=== PATIENT | female | born 1940 | race Caucasian/White ===

== ENCOUNTER 2019-08-31 09:43 | Outpatient (CLI) | payer MEDICARE, SELFPAY ==
[2019-08-31 10:21] LABS: Hemoglobin A1C 8.4 % (<5.7)
[2019-08-31 11:17] LABS: Free T4 Free Thyroxine 1.09 ng/mL (0.78-2.19)
== END 2019-08-31 09:44 | disposition home or self-care (01) ==
PROVIDERS: PCP Family Medicine; Visit Provider Internal Medicine
DX: E11.65 Type 2 diabetes mellitus with hyperglycemia (principal); E03.8 Other specified hypothyroidism
CPT/HCPCS: 36415; 83036; 84439; 84443

== ENCOUNTER 2019-09-17 11:14 | Outpatient (CLI) | payer MEDICARE, SELFPAY ==
--- NOTE | ~2019-09-17 | CT_ITS ---
EXAMINATION: CT abdomen pelvis wo con EXAM DATE: 09/17/2019 11:34 INDICATION: Gross hematuria, right lower back pain, right pelvic pain. History breast cancer. TECHNIQUE: Spiral CT of the abdomen and pelvis was performed without contrast. Axial, coronal and sag ittal images were reviewed. The dose-length product (DLP) for this examination was 1077.54 mGy-cm. The exposure was tailored according to patient size (auto mA exposure control), and iterative reconst ruction (ASIR) was used as additional dose reduction technique. Comparison is made to prior examinati on from 01/14/2015. FINDINGS: There is no nephrolithiasis or hydronephrosis. The uterus is not identified and has likel y been surgically resected. The bladder is unremarkable. There is hepatic steatosis without suspici ous focal lesion identified. Spleen, adrenal glands, pancreas are unremarkable. There are cholecyste ctomy clips. Some pneumobilia. There is no retroperitoneal or pelvic lymphadenopathy. There is mil d to moderate scattered arteriosclerotic disease. The appendix is normal. There is small sliding gastroesophageal hiatal hernia. There is moderate to severe descending and sigmoid predominant colonic diverticulosis. There is no adjacent inflammatory change to suggest diverticulitis. No free intraperitoneal gas. The heart is normal in size. There are no pericardial or pleural effusions. The lung bases are unremarkable. There are no osteoblasti c or osteolytic lesions identified. 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 IMPRESSION: 1. No nephrolithiasis, hydronephrosis or acute intra-abdominal findings. 2. Colonic diverticulosis. Reviewed, dictated and finalized at location B.
== END 2019-09-17 11:15 | disposition home or self-care (01) ==
PROVIDERS: PCP Family Medicine; Visit Provider Physician Assistant
DX: K57.30 Diverticulosis of large intestine without perforation or abscess without bleeding (principal)
CPT/HCPCS: 74176

== ENCOUNTER 2019-11-12 14:57 | Outpatient (CLI) | payer MEDICARE, SELFPAY ==
--- NOTE | ~2019-11-12 | US_ITS ---
EXAMINATION: US soft tissue abdomen DATE: 11/12/2019 15:26 INDICATION: Palpable area at the infracostal anterior left abdomen TECHNIQUE: Multiple grayscale and Doppler ultrasound images of the region of concern at the anterior left upper quadrant were obtained. COMPARISON: CT dated 09/17/2019 FINDINGS: As on the prior CT there is focal thickening of the subcutaneous fat in the anterior left upper quadr ant along the inferior costal margin which is clearly palpable with the ultrasound probe. No discerni ble capsule to suggest a lipoma. No abnormal underlying masses, fluid collections or ventral hernia i dentified. IMPRESSION: 1. The palpable abnormality of concern corresponds to a localized region of thickened subcutaneous fa t without a discernible discrete encapsulated lipoma. Reviewed, dictated and finalized at location A. IMPRESSION: 1. The palpable abnormality of concern corresponds to a localized region of thi ckened subcutaneous fat without a discernible discrete encapsulated lipoma.
== END 2019-11-12 14:58 | disposition home or self-care (01) ==
PROVIDERS: PCP Family Medicine; Visit Provider Family Medicine
DX: R22.2 Localized swelling, mass and lump, trunk (principal); R10.9 Unspecified abdominal pain
CPT/HCPCS: 76705

== ENCOUNTER 2019-12-07 09:37 | Outpatient (CLI) | payer MEDICARE, SELFPAY ==
[2019-12-07 10:50] LABS: Hemoglobin A1C 8.2 % (<5.7)
[2019-12-07 11:12] LABS: Free T4 Free Thyroxine 1.16 ng/mL (0.78-2.19)
== END 2019-12-07 09:38 | disposition home or self-care (01) ==
PROVIDERS: PCP Family Medicine; Visit Provider Internal Medicine
DX: K76.89 Other specified diseases of liver (principal); Z79.899 Other long term (current) drug therapy; Z78.0 Asymptomatic menopausal state; E03.8 Other specified hypothyroidism; E11.65 Type 2 diabetes mellitus with hyperglycemia; E11.40 Type 2 diabetes mellitus with diabetic neuropathy, unspecified; E11.51 Type 2 diabetes mellitus with diabetic peripheral angiopathy without gangrene; E78.5 Hyperlipidemia, unspecified; C50.912 Malignant neoplasm of unspecified site of left female breast; I10 Essential (primary) hypertension
CPT/HCPCS: 36415; 83036; 84439; 84443

== ENCOUNTER 2020-03-15 09:30 | Outpatient (CLI) | payer MEDICARE, SELFPAY ==
[2020-03-15 10:35] LABS: Alanine Aminotransferase 31 U/L (4-35); Albumin Level 4.3 g/dL (3.5-5.1); Alkaline Phosphatase 73 U/L (38-126); Anion Gap 8 mmol/L (8-16); Aspartate Amino Transferase 31 U/L (14-36); Bilirubin,Total 0.3 mg/dL (0.2-1.3); Blood Urea Nitrogen 24 mg/dL (7-17); Calcium 9.3 mg/dL (8.4-10.2); Carbon Dioxide 30 mmol/L (22-30); Chloride 100 mmol/L (98-107); Cholesterol 157 mg/dL (0-200); Estimated Glomerular Filt Rate > 60; Glucose 175 mg/dL (65-105); HDL Direct 28 mg/dL; Potassium 4.6 mmol/L (3.4-5.0); Sodium 138 mmol/L (137-145); Triglycerides 228 mg/dL (<150)
[2020-03-15 10:47] LABS: LDL Cholesterol Direct 91 mg/dL
[2020-03-15 10:54] LABS: Hemoglobin A1C 7.4 % (<5.7)
[2020-03-15 11:05] LABS: Thyroid Stimulating Hormone 0.864 uIU/mL (0.465-4.680)
[2020-03-15 11:51] LABS: Free T4 Free Thyroxine 1.19 ng/mL (0.78-2.19)
[2020-03-19 18:57] LABS: Fructosamine 291 umol/L (205-285)
== END 2020-03-15 09:31 | disposition home or self-care (01) ==
PROVIDERS: Visit Provider Internal Medicine
DX: E11.65 Type 2 diabetes mellitus with hyperglycemia (principal); E03.8 Other specified hypothyroidism; E78.5 Hyperlipidemia, unspecified; I10 Essential (primary) hypertension
CPT/HCPCS: 36415; 80053; 80061; 82985; 83036; 84439; 84443

== ENCOUNTER 2020-06-20 09:38 | Outpatient (CLI) | payer MEDICARE, SELFPAY ==
[2020-06-20 10:34] LABS: Hemoglobin A1C 8.2 % (<5.7)
[2020-06-20 10:57] LABS: Creatinine Urine 89.6 mg/dL
[2020-06-20 11:16] LABS: Free T4 Free Thyroxine 1.24 ng/mL (0.78-2.19)
[2020-06-20 14:37] LABS: MALB Creatinine Ratio < 6.7 mg/g (0-30); Microalbumin Urine Random < 6.0 mg/L (0-16.7)
[2020-06-20 15:49] LABS: Cholesterol 136 mg/dL (0-200); HDL Direct 24 mg/dL; Triglycerides 265 mg/dL (<150)
[2020-06-20 16:01] LABS: LDL Cholesterol Direct 77 mg/dL
[2020-06-26 22:51] LABS: Fructosamine 290 umol/L (205-285)
== END 2020-06-20 09:39 | disposition home or self-care (01) ==
LOC: ANHLAB 09:44
PROVIDERS: Visit Provider Internal Medicine
DX: E11.65 Type 2 diabetes mellitus with hyperglycemia (principal); E03.8 Other specified hypothyroidism; E78.5 Hyperlipidemia, unspecified
CPT/HCPCS: 36415; 80061; 82043; 82985; 83036; 84439; 84443

== ENCOUNTER 2020-09-19 07:43 | Outpatient (CLI) | payer MEDICARE, SELFPAY ==
[2020-09-19 08:16] LABS: Cholesterol 135 mg/dL (0-200); HDL Direct 32 mg/dL; Triglycerides 195 mg/dL (<150)
[2020-09-19 08:27] LABS: LDL Cholesterol Direct 71 mg/dL
[2020-09-19 09:09] LABS: Free T4 Free Thyroxine 1.43 ng/mL (0.78-2.19)
[2020-09-19 09:11] LABS: Hemoglobin A1C 8.4 % (<5.7)
[2020-09-22 12:59] LABS: Fructosamine 320 umol/L (205-285)
== END 2020-09-19 07:44 | disposition home or self-care (01) ==
PROVIDERS: PCP Family Medicine; Visit Provider Internal Medicine
DX: E03.8 Other specified hypothyroidism (principal); E11.65 Type 2 diabetes mellitus with hyperglycemia; I10 Essential (primary) hypertension
CPT/HCPCS: 36415; 80061; 82985; 83036; 84439; 84443

== ENCOUNTER 2020-12-28 09:28 | Outpatient (CLI) | payer MEDICARE, SELFPAY ==
[2020-12-28 10:25] LABS: Hemoglobin A1C 8.7 % (<5.7)
[2020-12-28 10:52] LABS: Thyroid Stimulating Hormone 0.976 uIU/mL (0.465-4.680)
[2020-12-28 11:13] LABS: Free T4 Free Thyroxine 1.55 ng/mL (0.78-2.19)
[2021-01-02 04:00] LABS: Fructosamine 313 umol/L (205-285)
== END 2020-12-28 09:29 | disposition home or self-care (01) ==
LOC: ANHLAB 09:32
PROVIDERS: PCP Family Medicine; Visit Provider Internal Medicine
DX: E11.65 Type 2 diabetes mellitus with hyperglycemia (principal); E03.8 Other specified hypothyroidism
CPT/HCPCS: 36415; 82985; 83036; 84439; 84443

== ENCOUNTER 2021-01-19 13:08 | Outpatient (CLI) | payer MEDICARE, SELFPAY ==
--- NOTE | ~2021-01-19 | XR_ITS ---
XR toe 1st LT min 2V DATE: 01/19/2021 13:37 INDICATION: Pain and swelling of left great toe. No injury. TECHNIQUE: 4 views COMPARISON: 05/13/2017 left great toe] FINDINGS: There is mild osteoarthritis at the first metatarsal phalangeal and interphalangeal joints. Osteoarthritic changes are noted at the talonavicular and tarsal joints. Osteopenia. No fracture, dislocation, periosteal reaction or bone destruction. IMPRESSION: Polyarticular osteoarthritis Osteopenia Reviewed, dictated and finalized at location B.
--- NOTE | ~2021-01-19 | XR_ITS ---
XR foot LT min 3V DATE: 01/19/2021 13:37 INDICATION: Left foot pain and swelling. No injury. TECHNIQUE: 4 views COMPARISON: None FINDINGS: Prominent osteoarthritic changes noted at the talonavicular, calcaneocuboid joints. There i s mild osteoarthritic arthritis at the first metatarsophalangeal and multiple interphalangeal joints. Osteopenia. No fracture or dislocation, periosteal reaction or bone destruction is detected. IMPRESSION: Polyarticular osteoarthritis Reviewed, dictated and finalized at location B.
== END 2021-01-19 13:09 | disposition home or self-care (01) ==
LOC: ANHIMG 13:16
PROVIDERS: PCP Family Medicine; Visit Provider Physician Assistant Medical
DX: M79.672 Pain in left foot (principal); M79.675 Pain in left toe(s); S90.129A Contusion of unspecified lesser toe(s) without damage to nail, initial encounter; M19.072 Primary osteoarthritis, left ankle and foot; M85.872 Other specified disorders of bone density and structure, left ankle and foot
CPT/HCPCS: 73630; 73660

== ENCOUNTER 2021-04-04 08:40 | Outpatient (CLI) | payer MEDICARE, SELFPAY ==
[2021-04-04 09:39] LABS: Hemoglobin A1C 8.1 % (<5.7)
[2021-04-04 10:02] LABS: Thyroid Stimulating Hormone 0.922 uIU/mL (0.465-4.680)
[2021-04-04 10:06] LABS: Free T4 Free Thyroxine 1.73 ng/mL (0.78-2.19)
[2021-04-08 11:51] LABS: Fructosamine 308 umol/L (205-285)
== END 2021-04-04 08:41 | disposition home or self-care (01) ==
PROVIDERS: PCP Family Medicine; Visit Provider Internal Medicine
DX: E03.8 Other specified hypothyroidism (principal); E11.65 Type 2 diabetes mellitus with hyperglycemia; E11.40 Type 2 diabetes mellitus with diabetic neuropathy, unspecified; E11.51 Type 2 diabetes mellitus with diabetic peripheral angiopathy without gangrene; E78.5 Hyperlipidemia, unspecified; C50.912 Malignant neoplasm of unspecified site of left female breast; I10 Essential (primary) hypertension; K76.89 Other specified diseases of liver; Z79.899 Other long term (current) drug therapy; Z87.442 Personal history of urinary calculi
CPT/HCPCS: 36415; 82985; 83036; 84439; 84443

== ENCOUNTER 2021-07-12 08:32 | Outpatient (CLI) | payer MEDICARE, SELFPAY ==
[2021-07-12 09:24] LABS: Basophils Percent Auto 0.4 % (0.2-1.2); Eosinophils Absolute Auto 0.1 K/mm3 (0-0.3); Hemoglobin 15.2 g/dL (12.0-15.0); Immature Granulocyte Absolute 0.04 K/mm3 (0.00-0.031); Immature Granulocyte Percent A 0.5 % (0-0.5); Lymphocytes Absolute Auto 1.74 K/mm3 (0.9-3.2); Lymphocytes Percent Auto 20.9 % (18.3-44.2); Mean Corpuscular HGB Conc 31.7 g/dl (32-36); Mean Corpuscular Hemoglobin 28.8 pg (26-34); Mean Corpuscular Volume 90.9 fl (80-100); Mean Platelet Volume 10.6 fl (7.4-10.4); Monocytes Absolute Auto 0.7 K/mm3 (0.1-0.6); Monocytes Percent Auto 7.8 % (2.6-8.5); Neutrophils Absolute Auto 5.8 K/mm3 (1.3-6.7); Neutrophils Percent Auto 69.4 % (45.5-73.1); Platelet Count Result 295 k/mm3 (150-375); Red Blood Count 5.28 M/mm3 (4.2-5.4); Red Cell Distribution Width 13.7 % (11.5-14.5); White Blood Count 8.3 K/mm3 (4.5-10.0)
[2021-07-12 09:37] LABS: Alanine Aminotransferase 23 U/L (4-35); Albumin Level 4.5 g/dL (3.5-5.1); Alkaline Phosphatase 89 U/L (38-126); Anion Gap 11 mmol/L (8-16); Aspartate Amino Transferase 27 U/L (14-36); Bilirubin,Total 0.6 mg/dL (0.2-1.3); Blood Urea Nitrogen 26 mg/dL (7-17); Calcium 9.2 mg/dL (8.4-10.2); Carbon Dioxide 30 mmol/L (22-30); Chloride 96 mmol/L (98-107); Estimated Glomerular Filt Rate > 60; Glucose 181 mg/dL (65-110); Potassium 3.9 mmol/L (3.4-5.0); Sodium 137 mmol/L (137-145)
[2021-07-12 10:45] LABS: Free T4 Free Thyroxine 1.31 ng/mL (0.78-2.19)
[2021-07-12 11:06] LABS: Creatinine Urine 67.8 mg/dL
[2021-07-12 11:19] LABS: MALB Creatinine Ratio < 8.8 mg/g (0-30); Microalbumin Urine Random < 6.0 mg/L (0-16.7)
[2021-07-12 11:47] LABS: Hemoglobin A1C 8.4 % (<5.7)
[2021-07-16 17:28] LABS: Fructosamine 313 umol/L (205-285)
== END 2021-07-12 08:33 | disposition home or self-care (01) ==
PROVIDERS: PCP Family Medicine; Referring Provider Internal Medicine; Visit Provider Family Medicine
DX: E03.9 Hypothyroidism, unspecified (principal); R60.9 Edema, unspecified; E11.65 Type 2 diabetes mellitus with hyperglycemia; I10 Essential (primary) hypertension
CPT/HCPCS: 36415; 80053; 82043; 82985; 83036; 84439; 84443; 85025

== ENCOUNTER 2021-11-13 08:12 | Outpatient (CLI) | payer MEDICARE, SELFPAY ==
[2021-11-13 09:10] LABS: Hemoglobin A1C 7.6 % (<5.7)
[2021-11-13 09:44] LABS: Free T4 Free Thyroxine 1.48 ng/mL (0.78-2.19)
[2021-11-15 14:34] LABS: Fructosamine 320 umol/L (205-285)
== END 2021-11-13 08:13 | disposition home or self-care (01) ==
LOC: ANHLAB 08:17
PROVIDERS: PCP Family Medicine; Visit Provider Internal Medicine
DX: E03.8 Other specified hypothyroidism (principal); E11.65 Type 2 diabetes mellitus with hyperglycemia
CPT/HCPCS: 36415; 82985; 83036; 84439; 84443

== ENCOUNTER 2022-02-19 09:39 | Outpatient (CLI) | payer MEDICARE, SELFPAY ==
[2022-02-19 10:37] LABS: Hemoglobin A1C 8.1 % (<5.7)
[2022-02-24 03:30] LABS: Fructosamine 321 umol/L (205-285)
== END 2022-02-19 09:40 | disposition home or self-care (01) ==
PROVIDERS: PCP Physician Assistant; Visit Provider Internal Medicine
DX: E11.65 Type 2 diabetes mellitus with hyperglycemia (principal); E03.8 Other specified hypothyroidism
CPT/HCPCS: 36415; 82985; 83036; 84436; 84443

== ENCOUNTER 2022-04-05 16:49 | Outpatient (CLI) | payer MEDICARE, SELFPAY ==
--- NOTE | ~2022-04-05 | XR_ITS ---
EXAMINATION: XR hip RT min 2V DATE: 04/05/2022 17:21 INDICATION: Right hip pain. TECHNIQUE: 2 views of right hip were obtained. COMPARISON: Right hip radiographs 07/04/2014 FINDINGS: Bone alignment is normal. No fracture. There is mild lumbar spondylosis. There is mild righ t hip osteoarthritis. Osteitis pubis is noted. IMPRESSION: 1. Mild right hip osteoarthritis. Reviewed, dictated and finalized at location A.
[2022-04-05 18:01] LABS: Alanine Aminotransferase 22 U/L (6-35); Albumin Level 4.3 g/dL (3.5-5.1); Alkaline Phosphatase 98 U/L (38-126); Anion Gap 9 mmol/L (8-16); Aspartate Amino Transferase 23 U/L (14-36); Bilirubin,Total 0.4 mg/dL (0.2-1.3); Blood Urea Nitrogen 28 mg/dL (7-17); Calcium 8.9 mg/dL (8.4-10.2); Carbon Dioxide 33 mmol/L (22-30); Chloride 97 mmol/L (98-107); Cholesterol 162 mg/dL (0-200); Estimated Glomerular Filt Rate > 60; Glucose 188 mg/dL (65-110); HDL Direct 34 mg/dL; Potassium 4.3 mmol/L (3.4-5.0); Sodium 139 mmol/L (137-145); Triglycerides 324 mg/dL (<150)
[2022-04-05 18:12] LABS: LDL Cholesterol Direct 88 mg/dL
== END 2022-04-05 16:50 | disposition home or self-care (01) ==
PROVIDERS: PCP Family Medicine; Visit Provider Family Medicine
DX: E11.65 Type 2 diabetes mellitus with hyperglycemia (principal); E66.9 Obesity, unspecified; I10 Essential (primary) hypertension; E78.5 Hyperlipidemia, unspecified; M25.551 Pain in right hip; M16.11 Unilateral primary osteoarthritis, right hip
CPT/HCPCS: 36415; 73502; 80053; 80061

== ENCOUNTER 2022-04-23 11:45 | Emergency (ER) | payer MEDICARE, SELFPAY ==
--- NOTE | ~2022-04-23 | CT_ITS ---
EXAMINATION: CT brain wo con DATE: 04/23/2022 12:20 INDICATION: Head injury. TECHNIQUE: Computed tomography (CT) of the head was performed without intravenous contrast. The mA wa s adjusted according to patient size. Iterative reconstruction technique was employed. The dose-lengt h product was 605.33 mGy-cm. COMPARISON: Head CT 12/10/13 FINDINGS: There is a small old infarct in left cerebellum. There is no intracranial hemorrhage, acute infarction, or abnormal intracranial mass lesion. The ventricles are normal in size. The paranasal s inuses are clear. The orbits are normal. The mastoid air cells are normal. IMPRESSION: 1. Small old infarct in left cerebellum. Reviewed, dictated and finalized at location B.
--- NOTE | ~2022-04-23 | CT_ITS ---
EXAMINATION: CT cervical spine wo con DATE: 04/23/2022 12:20 INDICATION: Fall with head injury TECHNIQUE: Computed tomography (CT) of the cervical spine was performed without intravenous contrast. Automated exposure control and iterative reconstruction technique were employed. The dose-length pro duct was 280.43 mGy-cm. COMPARISON: None FINDINGS: Straightening of the normal cervical lordosis. Vertebral body heights are normal. No fracture. Severe osteoarthritis at the atlantoaxial articulation. Severe disc height loss at C5-C6, moderate disc hei ght loss at C6-C7 and mild disc height loss at C2-C3, C3-C4 and C7-T1. Posterior disc osteophyte comp robert at C5-C6 with moderate right-sided and severe left-sided uncovertebral osteoarthritis resulting i n mild central canal and mild bilateral neural foraminal stenosis. There is additional moderate uncov ertebral osteoarthritis bilaterally at C6-C7 and on the right at C3-C4. Moderate to severe multilevel bilateral cervical facet osteoarthritis. Additional neural foraminal stenosis, mild bilaterally at C 6-C7 and on the right at C3-C4 and minimal at a few additional levels atherosclerotic calcification i s at the bilateral carotid bulbs. Cervical soft tissues are otherwise unremarkable. Moderate to sever e emphysema at the bilateral apices. IMPRESSION: 1. Severe cervical spondylosis. No acute osseous abnormality. 2. Moderate to severe emphysema the apices of the lungs. Reviewed, dictated and finalized at location A.
[2022-04-23 11:53] VITALS: BP 161/79; PULSE 72; RESP 20; TEMP 36.2; O2SAT 100
[2022-04-23 12:34] LABS: Basophils Percent Auto 0.2 % (0.2-1.2); Eosinophils Absolute Auto 0.1 K/mm3 (0-0.3); Eosinophils Percent Auto 1.2 % (0-4.4); Hematocrit 48.4 % (37.0-47.0); Hemoglobin 15.1 g/dL (12.0-15.0); Immature Granulocyte Absolute 0.05 K/mm3 (0.00-0.031); Immature Granulocyte Percent A 0.5 % (0-0.5); Lymphocytes Absolute Auto 1.94 K/mm3 (0.9-3.2); Lymphocytes Percent Auto 21.2 % (18.3-44.2); Mean Corpuscular HGB Conc 31.2 g/dl (32-36); Mean Corpuscular Hemoglobin 29.8 pg (26-34); Mean Corpuscular Volume 95.5 fl (80-100); Mean Platelet Volume 10.6 fl (7.4-10.4); Monocytes Absolute Auto 0.7 K/mm3 (0.1-0.6); Neutrophils Absolute Auto 6.3 K/mm3 (1.3-6.7); Neutrophils Percent Auto 68.9 % (45.5-73.1); Platelet Count Result 249 k/mm3 (150-375); Red Blood Count 5.07 M/mm3 (4.2-5.4); Red Cell Distribution Width 13.5 % (11.5-14.5); White Blood Count 9.2 K/mm3 (4.5-10.0)
--- NOTE | 2022-04-23 12:36 | ED.HEATRA ---
HPI - Head Injury General Chief complaint: Head Injury Stated complaint: Fall hit head 04/21, ARTEAGA on blood thinners Time Seen by Provider: 04/23/22 11:59 History of Present Illness HPI Narrative: This is an 81-year-old female with past medical history of hypertension, hypothyroidism, type 2 diabetes who presents emergency department complaining of headache after a fall 2 days ago. She states she was walking in her kitchen, when her foot got caught on a table, she fell forward striking the top of her head on a refrigerator. She denies loss of consciousness, weakness or numbness after the fall. She denies chest pain, shortness of breath, lightheadedness or palpitations before or after the fall. She describes the headache as dull, 5 out of 10, not radiating. Related Data Home Medications Medication Instructions Recorded Confirmed metformin 500 mg tablet,extended 1,000 mg PO BID 06/14/19 04/05/22 release 24 hr montelukast 10 mg tablet 10 mg PO DAILY 06/14/19 04/05/22 (Singulair) levothyroxine 150 mcg capsule ea PO 01/19/21 04/05/22 Allergies Allergy/AdvReac Type Severity Reaction Status Date / Time No Known Allergies Allergy Verified 04/05/22 15:08 Review of Systems Review of Systems: CONSTITUTIONAL: Denies fever, chills, or sweats. EYES: Denies visual changes, redness, or discharge. ENT: Denies rhinorrhea, congestion, sore throat, or otalgia. CARDIOVASCULAR: Denies chest pain, palpitations, or edema. RESPIRATORY: Denies cough or dyspnea. GASTROINTESTINAL: Denies abdominal pain, nausea, vomiting, or diarrhea. GENITOURINARY: Denies dysuria or hematuria. SKIN: Denies rash or itching. MUSCULOSKELETAL: Denies back pain, joint pain, or myalgia. NEUROLOGIC: Headache denies numbness, dizziness, or weakness. PSYCHIATRIC: Denies anxiety or depression. [facility]LY [facility] Surgical History Surgical History H/O arthroscopy H/O mastectomy H/O rotator cuff surgery H/O: hysterectomy Hx of cholecystectomy Family History Family History Sibling Depression Hypertension Cerebrovascular accident Family history of malignant neoplasm of urinary bladder Family history of elevated blood lipids Family history of malignant neoplasm Family history of malignant melanoma Father Family history of glaucoma Hypertension Diabetes mellitus Mother Family history of malignant melanoma Hypertension Family history of elevated blood lipids Other Family history of arthritis Social History Social History (Updated 04/05/22 @ 15:10 by Marj Hyman, [facility]) Smoking status: Unknown if ever smoked Alcohol intake: never Exam Narrative: GENERAL: Well-developed, well-nourished, and in no acute distress. HEAD: Normocephalic, small healing abrasion noted to the top of the head approximately 2 x 2 cm EYES: PERRLA and EOMI. ENT: Nares clear, no rhinorrhea or epistaxis. Mucous membranes moist. Oropharynx without tonsillar hypertrophy exudate or other lesions. NECK: Supple. No adenopathy or masses. No carotid bruits or JVD CHEST: Clear to auscultation. No respiratory distress. No wheezes rales or rhonchi HEART: Regular rate and rhythm. No murmur heard. Normal peripheral pulses. ABDOMEN: Soft, nontender, nondistended, normal active bowel sounds. EXTREMITIES: Normal range of motion. No edema. SKIN: Warm, dry, no rash. NEURO: No focal deficits. Alert and oriented x3. Strength out of 5 in all extremities, sensation intact bilaterally, cranial nerves II through XII intact PSYCH: Normal mood and affect. Course Course Emergency Course: 12:40 - CT head shows old infarct without evidence of skull fracture or intracranial bleeding. 12:46 - CT cervical spine negative for fracture. 13:29 -CBC demonstrates hemoglobin of 15.1, but is otherwise unremarkable. Chemistries show mild hypochloremia at 95 and hyperglycemia of 219 but
[2022-04-23 12:45] LABS: Partial Thromboplastin Time 24.4 SECONDS (22.3-36.8)
[2022-04-23 12:47] LABS: Alanine Aminotransferase 21 U/L (6-35); Albumin Level 4.5 g/dL (3.5-5.1); Alkaline Phosphatase 86 U/L (38-126); Anion Gap 13 mmol/L (8-16); Aspartate Amino Transferase 25 U/L (14-36); Bilirubin,Total 0.4 mg/dL (0.2-1.3); Blood Urea Nitrogen 27 mg/dL (7-17); Carbon Dioxide 31 mmol/L (22-30); Chloride 95 mmol/L (98-107); Estimated CRCL calculation 53 ml/min; Estimated Glomerular Filt Rate > 60; Glucose 219 mg/dL (65-110); Potassium 4.2 mmol/L (3.4-5.0); Sodium 139 mmol/L (137-145)
[2022-04-23 12:48] LABS: INR 0.9; Prothrombin Time 12.1 Seconds (11.1-14.7)
[2022-04-23 12:57] LABS: Troponin I < 0.012 ng/mL (0.000-0.034)
[2022-04-23 14:03] VITALS: BP 110/62
== END 2022-04-23 14:27 | disposition home or self-care (01) ==
PROVIDERS: Emergency Medicine; Emergency Provider Preventive Medicine Aerospace Medicine; PCP Family Medicine
DX: S06.0X0A Concussion without loss of consciousness, initial encounter (principal); S00.03XA Contusion of scalp, initial encounter; I10 Essential (primary) hypertension; E11.9 Type 2 diabetes mellitus without complications; E03.9 Hypothyroidism, unspecified; Z79.84 Long term (current) use of oral hypoglycemic drugs; Z90.710 Acquired absence of both cervix and uterus; Z90.10 Acquired absence of unspecified breast and nipple; W01.198A Fall on same level from slipping, tripping and stumbling with subsequent striking against other object, initial encounter
CPT/HCPCS: 36415; 70450; 72125; 80053; 84484; 85025; 85610; 85730; 99284

== ENCOUNTER 2022-05-28 10:24 | Outpatient (CLI) | payer MEDICARE, SELFPAY ==
[2022-05-28 11:15] LABS: Alanine Aminotransferase 24 U/L (6-35); Albumin Level 4.4 g/dL (3.5-5.1); Alkaline Phosphatase 89 U/L (38-126); Anion Gap 11 mmol/L (8-16); Aspartate Amino Transferase 27 U/L (14-36); Bilirubin,Total 0.5 mg/dL (0.2-1.3); Blood Urea Nitrogen 28 mg/dL (7-17); Calcium 8.8 mg/dL (8.4-10.2); Carbon Dioxide 30 mmol/L (22-30); Chloride 98 mmol/L (98-107); Cholesterol 170 mg/dL (0-200); Estimated Glomerular Filt Rate > 60; Glucose 153 mg/dL (65-110); HDL Direct 33 mg/dL; Potassium 4.5 mmol/L (3.4-5.0); Sodium 139 mmol/L (137-145); Triglycerides 221 mg/dL (<150)
[2022-05-28 11:25] LABS: LDL Cholesterol Direct 86 mg/dL
[2022-05-28 11:29] LABS: Hemoglobin A1C 8.7 % (<5.7)
[2022-05-28 11:43] LABS: Creatinine Urine 34.6 mg/dL
[2022-05-28 11:48] LABS: MALB Creatinine Ratio 38.7 mg/g (0-30); Microalbumin Urine Random 13.4 mg/L (0-16.7)
[2022-05-28 11:57] LABS: Vitamin D 25 Hydroxy 39.3 ng/mL
[2022-05-28 12:47] LABS: Free T4 Free Thyroxine 1.35 ng/mL (0.78-2.19)
[2022-06-01 12:10] LABS: Fructosamine 329 umol/L (205-285)
== END 2022-05-28 10:25 | disposition home or self-care (01) ==
PROVIDERS: PCP Family Medicine; Referring Provider Internal Medicine; Visit Provider Nurse Practitioner
DX: E11.65 Type 2 diabetes mellitus with hyperglycemia (principal); E78.5 Hyperlipidemia, unspecified; E03.8 Other specified hypothyroidism; I10 Essential (primary) hypertension; E55.9 Vitamin D deficiency, unspecified
CPT/HCPCS: 36415; 80053; 80061; 82043; 82306; 82985; 83036; 84439; 84443

== ENCOUNTER 2022-09-03 10:10 | Outpatient (CLI) | payer MEDICARE, SELFPAY ==
[2022-09-03 12:25] LABS: Free T4 Free Thyroxine 1.17 ng/mL (0.78-2.19)
[2022-09-06 12:56] LABS: Fructosamine 286 umol/L (205-285)
== END 2022-09-03 10:11 | disposition home or self-care (01) ==
PROVIDERS: PCP Family Medicine; Referring Provider Family Medicine; Visit Provider Internal Medicine
DX: E11.65 Type 2 diabetes mellitus with hyperglycemia (principal); E03.8 Other specified hypothyroidism
CPT/HCPCS: 36415; 82985; 83036; 84439; 84443

== ENCOUNTER 2022-12-10 10:34 | Outpatient (CLI) | payer MEDICARE, SELFPAY ==
[2022-12-10 11:31] LABS: Hemoglobin A1C 8.1 % (<5.7)
[2022-12-10 11:49] LABS: Free T4 Free Thyroxine 0.47 ng/mL (0.78-2.19)
[2022-12-14 12:57] LABS: Fructosamine 321 umol/L (205-285)
== END 2022-12-10 10:35 | disposition home or self-care (01) ==
PROVIDERS: PCP Family Medicine; Visit Provider Internal Medicine
DX: E11.65 Type 2 diabetes mellitus with hyperglycemia (principal); E03.8 Other specified hypothyroidism
CPT/HCPCS: 36415; 82985; 83036; 84439; 84443

== ENCOUNTER 2023-01-15 10:33 | Outpatient (CLI) | payer MEDICARE, SELFPAY | END 2023-01-15 10:34 | disposition home or self-care (01) | LOC: ANHGOSHLAB 10:35 | PROVIDERS: PCP Family Medicine; Visit Provider Internal Medicine | DX: E03.8 Other specified hypothyroidism (principal) | CPT/HCPCS: 36415; 84439; 84443 ==

== ENCOUNTER 2023-03-13 09:07 | Outpatient (CLI) | payer MEDICARE, SELFPAY ==
[2023-03-13 19:10] LABS: Alanine Aminotransferase 22 U/L (6-35); Albumin Level 4.2 g/dL (3.5-5.1); Alkaline Phosphatase 81 U/L (38-126); Anion Gap 7 mmol/L (8-16); Aspartate Amino Transferase 30 U/L (14-36); Bilirubin,Total 0.6 mg/dL (0.2-1.3); Blood Urea Nitrogen 24 mg/dL (7-17); Calcium 8.8 mg/dL (8.4-10.2); Carbon Dioxide 35 mmol/L (22-30); Chloride 96 mmol/L (98-107); Cholesterol 165 mg/dL (0-200); Estimated Glomerular Filt Rate > 60; Glucose 175 mg/dL (65-110); HDL Direct 27 mg/dL; Potassium 4.9 mmol/L (3.4-5.0); Sodium 138 mmol/L (137-145); Triglycerides 310 mg/dL (<150)
[2023-03-13 19:21] LABS: LDL Cholesterol Direct 89 mg/dL
[2023-03-13 20:05] LABS: Free T4 Free Thyroxine 1.67 ng/mL (0.78-2.19)
[2023-03-13 20:12] LABS: Hemoglobin A1C 7.8 % (<5.7)
== END 2023-03-13 09:08 | disposition home or self-care (01) ==
PROVIDERS: PCP Family Medicine; Visit Provider Family Medicine
DX: E03.9 Hypothyroidism, unspecified (principal); E11.65 Type 2 diabetes mellitus with hyperglycemia; E66.9 Obesity, unspecified; I10 Essential (primary) hypertension; E78.5 Hyperlipidemia, unspecified
CPT/HCPCS: 36415; 80053; 80061; 83036; 84439; 84443

== ENCOUNTER 2023-03-28 10:31 | Outpatient (CLI) | payer MEDICARE, SELFPAY ==
[2023-03-28 18:06] LABS: Free T4 Free Thyroxine 1.55 ng/mL (0.78-2.19)
[2023-03-28 18:12] LABS: Hemoglobin A1C 7.7 % (<5.7)
[2023-04-03 20:38] LABS: Fructosamine 339 umol/L (205-285)
== END 2023-03-28 10:32 | disposition home or self-care (01) ==
PROVIDERS: PCP Family Medicine
DX: E11.65 Type 2 diabetes mellitus with hyperglycemia (principal); E03.8 Other specified hypothyroidism
CPT/HCPCS: 36415; 82985; 83036; 84439; 84443

== ENCOUNTER → 2023-06-11 13:53 | Outpatient (CLI) | payer MEDICARE, SELFPAY ==
--- NOTE | ~2023-06-11 | MR_ITS ---
MRI of the left shoulder Technique: Axial proton-density fat-sat images, coronal proton density fat-sat and T2 fat-sat images, and sagittal T1-weighted and T2 fat-sat images were acquired. Clinical History: Pain Findings: There is probable postoperative change of the distal clavicle, possibly related to prior chandler bacromial decompression/distal clavicular resection. Coracoclavicular, coracoacromial, and coracohume ral ligaments are intact. Supraspinatus tendon is intact, without partial or full-thickness tear, tendon is mildly thickened di stally. There is focal moderate to high-grade interstitial tearing of the anterior infraspinatus tend on, with distal low-grade interstitial tear of the infraspinatus myotendinous junction region. Subsca pularis tendon demonstrates severe tendinosis, with possible mild to moderate partial thickness teari ng. Suspected focal longitudinal split tearing of the biceps tendon of the bicipital groove There is superior labral tear, extending to the anterosuperior and anterior portions. There is enthesopathic change in the greater tuberosity. There is mild degenerative change of the gle nohumeral joint. Inferior glenohumeral ligament is intact. No significant fluid distention of the sub acromial/subdeltoid bursa. No muscle atrophy or edema. Impression: Focal moderate to high-grade interstitial tear of the anterior infraspinatus tendon with additional l ow-grade interstitial tear at the infraspinatus myotendinous junction region. Severe subscapularis tendinosis with possible mild to moderate partial thickness tearing. Probable focal longitudinal split tearing of the biceps tendon in the bicipital groove. Superior labral tear, extending to the anterosuperior and anterior portions. Probable prior subacromial decompression/distal clavicular resection. Reviewed, dictated and finalized at [facility]. [employer] BUSINESS MANAGER Impression: Focal moderate to high-grade interstitial tear of the anterior infraspinatus te ndon with additional low-grade interstitial tear at the infraspinatus myotendin ous junction region. Severe subscapularis tendinosis with possible mild to moderate partial thicknes s tearing. Probable focal longitudinal split tearing of the biceps tendon in the bicipital groove. Superior labral tear, extending to the anterosuperior and anterior portions. Probable prior subacromial decompression/distal clavicular resection.
== END ==
PROVIDERS: PCP Orthopaedic Surgery; Visit Provider Orthopaedic Surgery
DX: M75.102 Unspecified rotator cuff tear or rupture of left shoulder, not specified as traumatic (principal); S43.432A Superior glenoid labrum lesion of left shoulder, initial encounter; M67.814 Other specified disorders of tendon, left shoulder
CPT/HCPCS: 73221

== ENCOUNTER 2023-07-03 09:34 | Outpatient (CLI) | payer MEDICARE, SELFPAY ==
[2023-07-03 19:07] LABS: Hemoglobin A1C 8.5 % (<5.7)
[2023-07-03 19:15] LABS: Hematocrit 47.2 % (37.0-47.0); Hemoglobin 14.3 g/dL (12.0-15.0); Mean Corpuscular HGB Conc 30.3 g/dl (32-36); Mean Corpuscular Hemoglobin 29.4 pg (26-34); Mean Corpuscular Volume 96.9 fl (80-100); Mean Platelet Volume 11.3 fl (7.4-10.4); Platelet Count Result 213 k/mm3 (150-375); Red Blood Count 4.87 M/mm3 (4.2-5.4); Red Cell Distribution Width 14.3 % (11.5-14.5); White Blood Count 6.7 K/mm3 (4.5-10.0)
[2023-07-03 19:21] LABS: Alanine Aminotransferase 22 U/L (6-35); Albumin Level 4.4 g/dL (3.5-5.1); Alkaline Phosphatase 89 U/L (38-126); Anion Gap 10 mmol/L (8-16); Aspartate Amino Transferase 36 U/L (14-36); Bilirubin,Total 0.7 mg/dL (0.2-1.3); Blood Urea Nitrogen 30 mg/dL (7-17); Calcium 9.2 mg/dL (8.4-10.2); Carbon Dioxide 32 mmol/L (22-30); Chloride 95 mmol/L (98-107); Cholesterol 189 mg/dL (0-200); Estimated Glomerular Filt Rate > 60; Glucose 177 mg/dL (65-110); HDL Direct 29 mg/dL; Potassium 4.4 mmol/L (3.4-5.0); Sodium 137 mmol/L (137-145); Triglycerides 361 mg/dL (<150)
[2023-07-03 20:04] LABS: Creatinine Urine 33.7 mg/dL
[2023-07-03 20:09] LABS: MALB Creatinine Ratio 22.6 mg/g (0-30); Microalbumin Urine Random 7.6 mg/L (0-16.7)
[2023-07-03 21:27] LABS: LDL Cholesterol Direct 92 mg/dL
[2023-07-05 18:22] LABS: Fructosamine 317 umol/L (205-285)
== END 2023-07-03 09:35 | disposition home or self-care (01) ==
PROVIDERS: PCP Orthopaedic Surgery; Visit Provider Family Medicine
DX: E03.8 Other specified hypothyroidism (principal); E78.5 Hyperlipidemia, unspecified; I10 Essential (primary) hypertension; E11.65 Type 2 diabetes mellitus with hyperglycemia
CPT/HCPCS: 36415; 80053; 80061; 82043; 82985; 83036; 84439; 84443; 85027

== ENCOUNTER 2023-10-22 07:32 | Outpatient (CLI) | payer MEDICARE, SELFPAY ==
--- NOTE | ~2023-10-22 | DEXA_ITS ---
Bone Density Report Name: MANFRED SYKES Age: 83 Sex: Female Ethnicity: White Date of : 1940 Indication: postmenopausal; screening for osteoporosis; height loss; history of glucocorticoids; cancer; asthma or emphysema; hysterectomy; Referring Provider: NABEEL CARVER Study: Bone densitometry was performed. Exam Date: October 22, 2023 Accession number: [id number] Bone Density: Region BMD T-score Z-score Classification AP Spine(L1-L4) 0.988 -0.5 2.3 Normal Femoral Neck (Left) 0.934 0.8 3.3 Normal Total Hip (Left) 1.152 1.7 4.1 Normal Femoral Neck (Right) 0.850 0.0 2.5 Normal Total Hip (Right) 1.137 1.6 3.9 Normal Total Hip Mean 1.145 1.7 4.0 Normal World Health Organization criteria for BMD impression classify patients as: Normal (T-score at or above -1.0), Osteopenia (T-score between -1.0 and -2.5), or Osteoporosis (T-score at or below -2.5). 10-year Fracture Risk: FRAX not reported because: All T-scores for Spine Total, Hip Total, Femoral Neck at or above -1.0 Clinical Information Provided by Patient: Has taken Glucocorticoids Has used the following medications: Vitamin D Has the following medical conditions: Asthma or Emphysema, Cancer, Hysterectomy Patient maximum height was 67 Menopause Age: 39 No regular weight bearing exercise Drinks caffeinated beverages Onset of menses at age 12 Number of children 3 Impression: The patient has normal bone mass. The patient has risk factors, including: history of glucocorticoid therapy. Discussion: LOW RISK OF FRACTURE; BONE DENSITY IS WELL ABOVE THE MINIMUM DESIRABLE LEVEL AND ABOVE AVERAGE FOR AGE AND SEX AT ALL SKELETAL SITES TESTED. This person's bone density is above expected limits for age and sex. This is rarely clinically significant, but should be pursued if there are significant musculoskeletal complaints. The patient should follow a healthful lifestyle (good nutrition with adequate calcium and vitamin D, and appropriate weight-bearing exercise). Follow-Up: Consider repeating this study in 5 years or sooner if there is some new clinical indication. Reported by: JAMES on 10/22/2023 8:11:00 AM. Reviewed, dictated and finalized at location ABrandon MCKINNON
== END 2023-10-22 07:33 | disposition home or self-care (01) ==
LOC: ANHIMG 07:34
PROVIDERS: PCP Family Medicine; Visit Provider Family Medicine
DX: M81.0 Age-related osteoporosis without current pathological fracture (principal); Z92.241 Personal history of systemic steroid therapy
CPT/HCPCS: 77080

== ENCOUNTER 2024-05-03 09:10 | Outpatient (CLI) | payer MEDICARE, SELFPAY ==
[2024-05-03 14:17] LABS: Hematocrit 44.9 % (37.0-47.0); Hemoglobin 13.8 g/dL (12.0-15.0); Mean Corpuscular HGB Conc 30.7 g/dl (32-36); Mean Corpuscular Hemoglobin 30.2 pg (26-34); Mean Corpuscular Volume 98.2 fl (80-100); Mean Platelet Volume 11.5 fl (7.4-10.4); Platelet Count Result 286 k/mm3 (150-375); Red Blood Count 4.57 M/mm3 (4.2-5.4); Red Cell Distribution Width 13.2 % (11.5-14.5); White Blood Count 8.5 K/mm3 (4.5-10.0)
[2024-05-03 14:45] LABS: Alanine Aminotransferase 21 U/L (6-35); Albumin Level 4.3 g/dL (3.5-5.1); Alkaline Phosphatase 86 U/L (38-126); Anion Gap 9 mmol/L (4-12); Aspartate Amino Transferase 80 U/L (14-36); Bilirubin,Total 0.6 mg/dL (0.2-1.3); Blood Urea Nitrogen 34 mg/dL (7-17); Calcium 9.4 mg/dL (8.4-10.2); Carbon Dioxide 29 mmol/L (22-30); Chloride 99 mmol/L (98-107); Cholesterol 86 mg/dL (0-200); Estimated Glomerular Filt Rate > 60; Glucose 179 mg/dL (65-110); HDL Direct 24 mg/dL; Potassium 5.3 mmol/L (3.4-5.0); Sodium 137 mmol/L (137-145); Triglycerides 136 mg/dL (<150)
[2024-05-03 15:02] LABS: Free T4 Free Thyroxine 1.15 ng/mL (0.78-2.19)
[2024-05-03 15:33] LABS: LDL Cholesterol Direct < 30 mg/dL
[2024-05-03 16:00] LABS: Hemoglobin A1C 7.9 % (<5.7)
== END 2024-05-03 09:11 | disposition home or self-care (01) ==
PROVIDERS: PCP Family Medicine; Visit Provider Family Medicine
DX: E03.9 Hypothyroidism, unspecified (principal); E11.65 Type 2 diabetes mellitus with hyperglycemia; E66.9 Obesity, unspecified; E78.5 Hyperlipidemia, unspecified; I10 Essential (primary) hypertension; Z01.818 Encounter for other preprocedural examination; Z79.899 Other long term (current) drug therapy
CPT/HCPCS: 36415; 80053; 80061; 83036; 84439; 84443; 85027

== ENCOUNTER 2024-08-23 14:55 | Outpatient (CLI) | payer MEDICARE, SELFPAY ==
--- NOTE | ~2024-08-23 | XR_ITS ---
EXAM: XR hip BI 2V w AP pelvis DATE: 08/23/2024 15:20 HISTORY: R10.2 - Pelvic and perineal pain . COMPARISON: X-ray right hip 04/05/2022. FINDINGS: Decreased mineralization. No fracture or dislocation. No lytic or blastic lesion. Lumbar d egenerative disc disease. Mild bilateral superior hip joint space narrowing. Degenerative change at t he pubic symphysis. Scattered enthesopathy. The rectum is dilated to 9.4 cm by formed stool. No erosi on or periosteal change. Soft tissues within normal limits. IMPRESSION: Possible fecal impaction. Osteopenia. Mild bilateral hip osteoarthritis. Osteitis pubis. Reviewed, dictated and finalized at location K. RAFT SHEET METAL MECHANIC IMPRESSION: Possible fecal impaction. Osteopenia. Mild bilateral hip osteoarthr itis. Osteitis pubis.
--- NOTE | ~2024-08-23 | XR_ITS ---
EXAM: XR lumbar spine 2-3V DATE: 08/23/2024 15:20 HISTORY: M54.9 - Dorsalgia, unspecified . COMPARISON: 12/16/2007; CT abdomen pelvis 09/17/2019. FINDINGS: Cholecystectomy clips. Fecal distention of the rectum. 5 nonrib-bearing lumbar-type vertebr al bodies. Pedicles intact. Bilateral pars defects at L5-S1. 4 mm anterolisthesis at L3-4 and L4-5. M ild anterior wedge deformity at L2, new since the prior CT. Multilevel mild-moderate disc space narro wing and marginal osteophytosis. Multilevel moderate mid and lower lumbar facet arthropathy. Atherosc lerotic aortic ossification without evident aneurysm. IMPRESSION: Mild anterior wedge compression fracture at L2, possibly acute given the history of recen t fall. Grade 1 anterolisthesis at L3-4 and L4-5. Bilateral pars defects at L5-S1. Multilevel degener ative disc disease and facet arthropathy. Possible fecal impaction. Reviewed, dictated and finalized at location K. AL TUBE WINDER IMPRESSION: Mild anterior wedge compression fracture at L2, possibly acute give n the history of recent fall. Grade 1 anterolisthesis at L3-4 and L4-5. Bilater al pars defects at L5-S1. Multilevel degenerative disc disease and facet arthro sivakumar. Possible fecal impaction.
--- NOTE | ~2024-08-23 | CT_ITS ---
EXAMINATION: CT brain wo con DATE: 08/23/2024 15:11 INDICATION: Unspecified injury of head, initial encounter . TECHNIQUE: Computed tomography (CT) of the head was performed without intravenous contrast. The mA wa s adjusted according to patient size. Iterative reconstruction technique was employed. The dose-lengt h product was 645.69 mGy-cm. COMPARISON: 04/23/2022. FINDINGS: No acute intracranial hemorrhage or extra-axial fluid collection. No hydrocephalus, mass, or herniation. No acute ischemic infarct. Unremarkable dural venous sinus attenuation. No acute osseous abnormality. The aerated spaces are clear. Mild atrophy and chronic white matter change. Atherosclerotic intracranial calcification. Bilateral l ens replacements. Small old left cerebellar infarct. IMPRESSION: No acute intracranial process. Reviewed, dictated and finalized at location K. DRY SORTER
== END 2024-08-23 14:56 | disposition home or self-care (01) ==
PROVIDERS: PCP Nurse Practitioner; Visit Provider Nurse Practitioner
DX: S32.020A Wedge compression fracture of second lumbar vertebra, initial encounter for closed fracture (principal); S09.90XA Unspecified injury of head, initial encounter; X58.XXXA Exposure to other specified factors, initial encounter; M43.16 Spondylolisthesis, lumbar region; M51.360 Other intervertebral disc degeneration, lumbar region with discogenic back pain only; M85.88 Other specified disorders of bone density and structure, other site; M16.0 Bilateral primary osteoarthritis of hip; M86.9 Osteomyelitis, unspecified
CPT/HCPCS: 70450; 72100; 73521

== ENCOUNTER 2024-09-06 09:50 | Outpatient (CLI) | payer MEDICARE, SELFPAY ==
[2024-09-06 14:58] LABS: Alanine Aminotransferase 17 U/L (6-35); Albumin Level 4.1 g/dL (3.5-5.1); Alkaline Phosphatase 98 U/L (38-126); Anion Gap 11 mmol/L (4-12); Aspartate Amino Transferase 80 U/L (14-36); Bilirubin,Total 0.6 mg/dL (0.2-1.3); Blood Urea Nitrogen 31 mg/dL (7-17); Calcium 9.9 mg/dL (8.4-10.2); Carbon Dioxide 27 mmol/L (22-30); Chloride 102 mmol/L (98-107); Cholesterol 81 mg/dL (0-200); Estimated Glomerular Filt Rate > 60; Glucose 166 mg/dL (65-110); HDL Direct 23 mg/dL; Potassium 5.3 mmol/L (3.4-5.0); Sodium 140 mmol/L (137-145); Triglycerides 145 mg/dL (<150)
[2024-09-06 15:20] LABS: LDL Cholesterol Direct < 30 mg/dL
[2024-09-06 15:27] LABS: Thyroid Stimulating Hormone 0.616 uIU/mL (0.465-4.680)
[2024-09-06 16:17] LABS: Creatinine Urine 63.7 mg/dL
[2024-09-06 16:20] LABS: MALB Creatinine Ratio 50.4 mg/g (0-30); Microalbumin Urine Random 32.1 mg/L (0-16.7)
[2024-09-06 19:37] LABS: Free T4 Free Thyroxine 1.85 ng/dL (0.78-2.19)
[2024-09-06 21:39] LABS: Hemoglobin A1C 8.4 % (<5.7)
== END 2024-09-06 09:51 | disposition home or self-care (01) ==
PROVIDERS: PCP Nurse Practitioner; Visit Provider Nurse Practitioner
DX: E11.65 Type 2 diabetes mellitus with hyperglycemia (principal); E03.9 Hypothyroidism, unspecified; E55.9 Vitamin D deficiency, unspecified; E78.5 Hyperlipidemia, unspecified
CPT/HCPCS: 36415; 80053; 80061; 82043; 82306; 83036; 84439; 84443

== ENCOUNTER 2024-09-21 09:26 | Outpatient (CLI) | payer MEDICARE, SELFPAY ==
--- OUTSIDE RECORDS SUMMARY | 2024-09-21 10:19 | XMS_ITS | Encounter Summary ---
Author Organization [facility] Healthcare Address [address] [place] [address] Care Team Providers Care Liability Analyst Name Role Phone Carissa Aragon MD Unavailable [phone] Jennifer Chris DO Primary Care Provider [phone] Bailey KwonW Unavailable [phone] Encounter Details Date Type Department Care Team (Late st Contact Info) Description 01/01/2024 Documentation [facility] 4 Med Surg [facility] [place] [address] Madelyn Galarza LPN Social History Tobacco Use Types Packs/Day Years Used Date Smoking Tobacco: Former Cigarettes 2 50 1 954 - 2004 Passive Smoke Exposure: Past Smokeless Tobacco: Never Alcohol Use Standard Drinks/Week Comments No 0 (1 standard drink = 0.6 oz pur e alcohol) [facility] Utilities Answer Date Recorded In the past 12 months has [employer], gas, oil, or water [employer] threatened to shut off services in your home? No 12/31/2023 Social Connection and Isolat ion Panel [NHANES] Answer Date Recorded In a typical week, how many times do you talk on the phone with family, friends, or neighbors? Three times a week 12/31/2023 How often do you get togethe r with friends or relatives? Three times a week 12/31/2023 How often do you attend chur or jainism services? More than 4 times per year 12/31/2023 Do you belong to any clubs o r organizations such as confucianist groups, unions, fraternal or athletic groups, or school groups? No 12/31/2023 How often do you attend meet ings of the clubs or organizations you belong to? Never 12/31/2023 Are you , , di vorced, , never , or living with a partner? 12/31/2023 AUDIT-C Answer Date Recorded Q1: How often do you have a drink containing alcohol? Never 12/03/2023 Q2: How many drinks containi ng alcohol do you have on a typical day when you are drinking? Patient does not drink Q3: How often do you have si x or more drinks on one occasion? Never 12/03/2023 Overall Financial Resource Strain (CARDIA) Answe r Date Recorded How hard is it for you to pa y for the very basics like food, housing, medical care, and heating? Not very hard 12/31/2023 Hunger Vital Sign Answer Date Recorded Within the past 12 months, y ou worried that your food would run out before you got the money to buy more. Never true 12/31/19 24 Within the past 12 months, t he food you bought just didn't last and you didn't have money to get more. Never true 12/31/2023 PRAPARE - Transportation Answer Date Re corded In the past 12 months, has l ack of transportation kept you from medical appointments or from getting medications? No 12/06 In the past 12 months, has l ack of transportation kept you from meetings, work, or from getting things needed for daily living? No 12/31/2023 Housing Stability Vital Sign Answer Tray e Recorded In the last 12 months, was t here a time when you were not able to pay the mortgage or rent on time? No 12/31/2023 In the past 12 months, how m any times have you moved where you were living? 0 12/31/2023 At any time in the past 12 m [facility], were you homeless or living in a care home (including now)? No 12/31/2023 Personal Safety Answer Date Recorded Have you ever been in or are you currently in a harmful physical or emotional relationship or is someone making you feel afraid or unsafe? Denies 12/30/2023 Comments No Sex and Gender Information Value Date Recorded Sex Assigned at Not on file Legal Sex Female 11:44 PM [employer]IP [employer] Gender Identity Not on file Sexual Orientation Not on file documented as of this encounter Plan of Treatment Not on file documented as of this encounter Visit Diagnoses Not on filedocumented in this encounter Care Teams Liability Analyst Relationship Specialty Start Date End Date Jennifer Chris DO PCP - General Family Medicine 08/05/22 Carissa Aragon MD Surgeon Surgical Oncology 07/11/22 Bailey Kwon, MINNIE [address] [facility] ([facility]) Mailstop [phone] [place] [address] [employer] 1 [employer] 6 Home Teacher 12/09/23 01/05/24 documented as of this encounter
--- OUTSIDE RECORDS SUMMARY | 2024-09-21 10:19 | XMS_ITS ---
Author Organization [facility] Address [address] [place], [place] [id number] Care Team Providers Care C 13 Catapult Operator Name Role Phone Jennifer Chris Unavailable Unavailable CHEIKH SCHROEDER Unavailable [phone] REASON FOR VISIT *General care Encounters Encounter Location Date Provider Diagnosis [facility] [place] [address] [place], [place] [id number] 04/01/2024 CHEIKH SCHROEDER Fungal infection of nail B35.1 ; Pain in right toe(s) M79.674 ; Pain in left toe(s) M79.675 ; Unspecified atherosclerosis of [place] arteries of extremities, bilateral legs I70.203 ; Atherosclerosis of [place] arteries of extremities with intermittent claudication, bilateral legs I70.213 and Onychomycosis B35.1 Assessments Encounter Date Diagnosis (ICD Code) Assessment Notes Treatment Notes Treatment Clinical Notes Section Notes 04/01/2024 Fungal infection of nail (ICD-10 - B35.1) 04/01/2024 Pain in right toe(s) (ICD-10 - M79.674) 04/01/2024 Pain in left toe(s) (ICD-10 - M79.675) 04/01/2024 Unspecified atherosclerosis of [place] arteries of extremities, bilateral legs (ICD-10 - I70.203) 04/01/2024 Atherosclerosis of [place] arteries of extremities with intermittent claudication, bilateral legs (ICD-10 - I70.213) 04/01/2024 Onychomycosis (ICD-10 - B35.1) Nails 1-5 Bilateral were debrided extensively with nail nippers and emery board, reducing length and girth to pink healthy tissue with any subungual debris and necrotic tissue removed Plan Of Treatment Treatment Notes Assessment Notes Onychomycosis Nails 1-5 Bilateral were debrided extensively with nail nippers and emery board, reducing length and girth to pink healthy tissue with any subungual debris and necrotic tissue removed Next Appt Details Follow Up: 9 weeks, Reason: Provider Name:CHEIKH COOPER, 09/30/2024 01:10:00 PM, [address], [address], [phone], Progress Notes * MANFRED SYKESDOB:1940 (83 yo F)Acc No.[id number]:04/01/2024 Patient: MANFRED BROWN Provider: Jaime Schroeder DPM :1940 A ge:83 Y S ex:Female Date:04/01/2024 Address:[address] [place] [address] Subjective: * Chief Complaints: * * General care * Medical History: * Surgical History: * Hospitalization/Major Diagno stic Procedure: * Medications: Objective: * Vitals: * Examination: C onstitutional: Constitutional T he patient is awake, alert, well developed, well groomed and well nourished. . D ermatologic: Skin findings: S kin is thin, atrophic and lacking pedal hair. . Nail pathology: N ails 1-5 bilateral are elongated, thick, discolored, and dystrophic with subungual debris. They are painful to palpation . Ulcer: T here is no evidence of ulceration noted at this time . Hyperkeratotic Skin Lesion T here is no evidence of hyperkeratosis . M usculoskeletal: Muscle Strength M uscle strength is 5/5 in regards to dorsiflexion, plantarflexion, inversion, and eversion in bilateral lower extremities. . Foot Structure T he foot structure is noted to be normal bilaterally . Pain on palpation T here is no pain on palpation . Gait T here is normal gait noted . N eurologic: Muscle power: 5 /5 bilaterally . Gross sensation G ross sensation is intact to light touch. . V ascular: Dorsalis pedis pulse: 0 /4 bilateral . Posterior tibial pulse: 0 /4 bilaterally . Capillary refill: g reater than 3 seconds bilaterally .? Temperature gradient: w arm to cool bilaterally . ? Assessment: * Assessment: 1. F ungal infection of nail - B35.1 (Primary) 2 . P ain in right toe(s) - M79.674 3 . P ain in left toe(s) - M79.675 4 . U nspecified atherosclerosis of [place] arteries of extremities, bilateral legs - I70.203 5 . A therosclerosis of [place] arteries of extremities with intermittent claudication, bilateral legs - I70.213 6 . O nychomycosis - B35.1 Plan: * Treatment: * Procedure Codes: 1 1721 DEBRIDE NAIL, 6 OR MORE, Modifiers: Q8 * Follow Up: 9 weeks * Billing Information: * Visit Code: * Procedure Codes: 85661 DEBRIDE NAIL, 6 OR MORE. Modifiers: Q8 * Sign off status: Completed true * Provider: Jaime Schroeder DPM Date: 0 04/01/2024 Generated for Jessica morgan/Mik/Yuri on: 0 09/21/2024 10:19 AM CDT History and Physical Notes * Examination Category Sub-Category Detail Notes Category Not es Constitutional Constitutional The patient is a wake, alert, well developed, well groomed and well nourished. Dermatologic Skin findings: Skin is thin, at rophic and lacking pedal hair. Nail pathology: Nails 1-5 bilateral are elongated, thick, discolored, and dystrophic with subungual debris. They are painful to palpation Ulcer: There is no evidence of ulceration noted at this time Hyperkeratotic Skin Lesion There is no e vidence of hyperkeratosis Musculoskeletal Muscle Strength Muscle strength is 5/5 in regards to dorsiflexion, plantarflexion, inversion, and eversion in bilateral lower extremities. Pain on palpation There is no pain on palpation Foot Structure The foot structure i s noted to be normal bilaterally Gait There is normal gait noted Neurologic Muscle power: 5/5 bilaterally Gross sensation Gross sensation is i ntact to light touch. Vascular Dorsalis pedis pulse: 0/4 bilateral Posterior tibial pulse: 0/4 bilaterally Capillary refill: greater than 3 secon ds bilaterally Temperature gradient: warm to cool bilat erally
--- OUTSIDE RECORDS SUMMARY | 2024-09-21 10:20 | XMS_ITS | Clinical Summary ---
Author Organization [facility] [place] Address [address] [place] [address] Care Team Providers Care Traffic Ii Manager Name Role Phone Carissa Aragon MD Unavailable [phone] Jennifer Chris DO Primary Care Provider [phone] Allergies Active Allergy Reactions Criticality Noted Date Comments Hydrocodone Rash Reaction: RASH Latex Blisters High 11/28/2023 Propoxyphene-Acetaminophen Rash Medium Medications ezetimibe (ZETIA) 10 mg tablet Take 1 tablet (10 mg total) by mouth every evening 11 9 Active metFORMIN XR (GLUCOPHAGE XR) 500 mg 24 hr tabletIndicatio ns:type 2 diabetes mellitus Take 4 tablets (2,000 mg total) by mouth daily with breakfast 0 9 Active montelukast (SINGULAIR) 10 mg tablet Take 1 tablet (10 mg total) by mouth nightly as needed (Allergies) 11 9 Active OneTouch Ultra Blue Test Strip strip TEST ONE TIME DAILY UTD 0 Active Tirosint 150 mcg capsule Take 1 capsule (150 mcg total) by mouth farrowing manager before breakfast 1 Active SITagliptin (JANUVIA) 25 mg tablet Take 1 tablet (25 mg total) by mouth every morning Active cholecalciferol (VITAMIN D-3) 25 mcg (1,000 unit) tablet Take 1 tablet (1,000 Units total) by mouth every evening Active cyanocobalamin (Vitamin B-12) 1,000 mcg tablet Take 1 tablet (1,000 mcg total) by mouth every evening Active Jardiance 25 mg tabletIndicatio ns:Heart Failure,heart failure associated with type 2 diabetes mellitus Take 1 tablet (25 mg total) by mouth every morning [address] (PROTONIX) 40 mg EC tablet Take 1 tablet (40 mg total) by mouth every morning 1 Active MULTIVITAMIN ORAL Take 1 tablet by mouth every evening Active atorvastatin (LIPITOR) 20 mg tablet Take 1 tablet (20 mg total) by mouth daily 30 tablet 11 4 12/08/19 25 Active aspirin 81 mg enteric coated tablet Take 1 tablet (81 mg total) by mouth daily 90 tablet 4 Active oxyCODONE (ROXICODONE) 5 mg immediate release tabletIndicatio ns:Pain Take 1-2 tablets (5-10 mg total) by mouth every 4 (four) hours as needed for pain 30 tablet 4 Active metoprolol XL (TOPROL-XL) 25 mg extended release tabletIndicatio ns:hypertension Take 1 tablet (25 mg total) by mouth daily 30 tablet 4 01/02/20 25 Active sacubitriL-vals ethan (ENTRESTO) 24-26 mg tabletIndicatio ns:chronic heart failure Take 1 tablet by mouth 2 (two) times a day 180 tablet 3 4 01/29/20 25 Active clopidogreL (PLAVIX) 75 mg tablet Take 1 tablet (75 mg total) by mouth daily 4 Active cyclobenzaprine (FLEXERIL) 10 mg tablet Take 1 tablet (10 mg total) by mouth 3 (three) times a day as needed for muscle spasms 4 Active HYDROcodone-nati taminophen (NORCO) 5-325 mg per tablet Take 1 tablet by mouth every 6 (six) hours as needed for pain 4 Active azithromycin (ZITHROMAX) 250 mg tablet TAKE 2 TABLETS BY MOUTH ON DAY 1, AND THEN TAKE 1 TABLET BY MOUTH ONCE A DAY ON DAY 2 THROUGH DAY 5 4 Active spironolactone (ALDACTONE) 25 mg tablet Take 1 tablet (25 mg total) by mouth daily 5 09/10/19 26 Active spironolactone (ALDACTONE) 50 mg tablet Take 1 tablet (50 mg total) by mouth daily 90 tablet 3 4 09/10/19 25 Discontinu ed(Reorder ) Active Problems Problem Noted Date Diagnosed Date Paresthesia 08/11/2024 Nonobstructive atherosclerosis of coronary arter y 01/22/2024 Assessment & Plan (03/25/2024 10:52 AM CDT): LHC from 12/2023 noted [id number]-[id number]-[id number] coronary plaquing in LAD, circumflex and right coronary. No angina. Continue atorvastatin and metoprolol XL. She will discuss with her family doctor and vascular surgery regarding continuing on aspirin or Plavix alone given history lower extremity clots. Assessment & Plan (01/22/2024 9:03 PM CDT): LHC from 12/2023 noted awbj-[id number]-pzufxpwy coronary plaquing in LAD, circumflex and right coronary. No angina. Continue ASA, atorvastatin and metoprolol XL. Subclavian arterial stenosis 01/07/2024 Assessment & Plan (04/21/2024 9:46 AM CDT): Evidence of subclavian stenosis on noninvasive testing and clinical exam however has no claudication type symptoms and majority of her symptoms seem neurologic in nature predominantly numbness and tingling to the 1st 3 fingers of the hand. I had a long discussion with the patient regarding her findings with a recommendation for evaluation by Neurology as this seems to be neurologic in etiology possible carpal tunnel. She has had a carpal tunnel release on the left upper extremity. Can follow up with me after her evaluation with Neurology if needed. Assessment & Plan (03/25/2024 10:52 AM CDT): Continue close follow-up with vascular surgery. She will discuss with her family doctor and vascular surgery regarding continuing on aspirin or Plavix alone given history lower extremity clots. Assessment & Plan (01/07/2024 10:31 AM CDT): Subclavian stenosis on CT with monophasic waveforms throughout the right lower extremity, her history is complicated by a recent hospitalization with heart failure requiring invasive catheters including a right axillary A-line. Overall her clinical exam and Doppler do not show severe ischemia of the right upper extremity and I would not expect this compared to her right upper extremity numbness and weakness. She may have a nerve injury from the paulina placement or a dissection as I would not expect the symptoms from a subclavian stenosis. I have recommended physical therapy for the next 1-2 months to see if we can get improvement otherwise she is going to need an angiogram with possible intervention, we did discuss if she would need a carotid subclavian bypass overall I do not think this would be appropriate given her heart failure and need for a life vest nor do I think this would improve her symptoms at this time. Shortness of breath 12/30/2023 Stress-induced cardiomyopathy 12/30/2023 Assessment & Plan (03/25/2024 10:19 AM CDT): Cardiogenic shock following arthroplasty in December of 2023 secondary to stress cardiomyopathy. LVEF of 25% on TTE from 12/06/23. Was placed on lifevest at an OSH. She is euvolemic upon examination and endorsing NYHA Class I symptoms. Repeat echo completed today. Continue GDMT with jardiance, metoprolol XL, Entresto and spironolactone. Continue as needed Lasix. Will follow up on results of echocardiogram from today. If LVEF > 35% then can discontinue LifeVest. Assessment & Plan (01/22/2024 9:00 PM CDT): Cardiogenic shock following arthroplasty in December of 2023 secondary to stress cardiomyopathy. LVEF of 25% on TTE from 12/06/23. Was placed on lifevest at an OSH. She is euvolemic upon examination and endorsing NYHA Class I symptoms. Continue GDMT with jardiance, metoprolol XL, Entresto and spironolactone. Continue as needed Lasix. Repeat TTE in 2 months. Continue LifeVest. Can discontinue if TTE notes a LVEF of >35%. Pain and numbness of right upper extremity 12/24 Assessment & Plan (12/25/2023 3:25 PM CDT): Impression: Patient complains of pain and numbness to her right upper extremity. Nonpalpable pulses are noted throughout right upper extremities. Handgrips are week to the right hand compared to the left. Upper extremity arterial Doppler performed at an outside facility revealed significant brachial pressure decreased of the right upper extremity. Plan: Discussed patient and plan of care with Dr. Jaime Regalado -recommend CTA of chest and right upper extremity with runoff for further evaluation of central stenosis. Primary hypertension 12/25/2023 Assessment & Plan (04/21/2024 9:44 AM CDT): Stable continue metoprolol Assessment & Plan (03/25/2024 10:16 AM CDT): Well controlled. Continue metoprolol XL, Entresto and Spironolactone. Assessment & Plan (01/22/2024 9:01 PM CDT): Well controlled. Reviewed home blood pressure log that reflects adequate control with some SBP in the 90's with standing. Continue metoprolol XL, Entresto and Spironolactone. Assessment & Plan (01/07/2024 10:31 AM CDT): Stable continue metoprolol 25 mg Assessment & Plan (12/25/2023 3:26 PM CDT): Impression: Chronic stable. Plan: Continue losartan, metoprolol, spironolactone Other hyperlipidemia 12/25/2023 Assessment & Plan (04/21/2024 9:44 AM CDT): Stable continue Lipitor Assessment & Plan (03/25/2024 10:18 AM CDT): LDL at goal on labs from 12/2023. Continue Atorvastatin and Zetia. Assessment & Plan (01/22/2024 9:01 PM CDT): LDL at goal on labs from 12/2023. Continue Atorvastatin and Zetia. Assessment & Plan (01/07/2024 10:31 AM CDT): Stable continue Lipitor 20 mg Assessment & Plan (12/25/2023 3:26 PM CDT): Impression: Chronic and stable. Plan: Continue Zetia and atorvastatin. Type 2 diabetes mellitus wit h circulatory disorder, without long-term current use of insulin 12/25/2023 Assessment & Plan (12/25/2023 3:27 PM CDT): Impression: Chronic and stable. Plan: Continue Jardiance, metformin, Januvia Osteoarthritis of left shoul mary ann, unspecified osteoarthritis type 12/03/2023 Primary osteoarthritis of left shoulder 10/02/19 24 Chest pain 04/24/2021 History of breast cancer 05/13/2018 Asthma 11/20/2013 Overview (10/11/2016): ASTHMA NOS Systemic lupus erythematosus 11/20/2013 Overview (10/11/2016): SYST LUPUS ERYTHEMATOSUS Drug allergy 11/20/2013 Overview (10/11/2016): DRUG ALLERGY NEC Hypothyroidism 11/20/2013 Overview (10/12/2016): HYPOTHYROIDISM NOS Encounters Date Type Department Care Team Description 09/09/2024 Telephone [facility] Cardiology [address] [place] [address] 8th [place] [address] [place] [address] Dwayne Grewal MD Med Management 08/12/2024 4:00 PM STOCK SHAPER Office Visit [facility] Cardiology [address] [place] [address] 8th [place] [address] [place] [address] Dwayne Grewal MD Stress-induced cardiomyopathy (Primary Dx); Primary hypertension; Nonobstructive atherosclerosis of coronary artery 08/11/2024 2:00 PM STOCK SHAPER Procedure visit [facility] Neurology [address] [place] [id number] Clem Garrido Si, MD Carpal tunnel syndrome of right wrist (Primary Dx); Paresthesia from Last 3 Months Surgical History Surgery Date Site/Laterality Comments BREAST BIOPSY 07/21/2019 Left FLUORO GUIDED INJECTION SHOULDER LEFT 07/31/2023 Left SHOULDER SURGERY 11/05/2023 - 12/05/2023 Left reversed shoulder surgery Family History Medical History Relation Name Comments Melanoma Mother Family history of malignant melanoma - (Added by KACY Conv) Anesthesia problems Neg Hx Malig Hypertension Neg Hx Malig Hyperthermia Neg Hx Pseudochol deficiency Neg Hx Relation Name Status Comments Mother Social History Tobacco Use Types Packs/Day Years Used Date Smoking Tobacco: Former Cigarettes 2 50 1 954 - 2004 Passive Smoke Exposure: Past Smokeless Tobacco: Never Tobacco Cessation:Counseling Given: Not Answered Alcohol Use Standard Drinks/Week Comments No 0 (1 standard drink = 0.6 oz pur e alcohol) [facility] Utilities Answer Date Recorded In the past 12 months has e electric, gas, oil, or water company threatened to shut off services in your [...] 12/31/2023 How often do you attend chur ch or advent services? More than 4 times per year 12/31/2023 Do you belong to any clubs o r organizations such as latter-day groups, unions, fraternal or athletic groups, or [...] any time in the past 12 m [facility], were you homeless or living in a nursing home (including now)? No 12/31/2023 Personal Safety Answer Date Recorded Have you ever been in or are you currently in a harmful physical or emotional relationship or is someone making you feel afraid or unsafe? Denies 12/30/2023 Comments No Sex and Gender Information Value Date Recorded Sex Assigned at Not on file Legal Sex Female 11:44 PM STOCK SHAPER Gender Identity Not on file Sexual Orientation Not on file Obstetrics History Last Filed Vital Signs Vital Sign Reading Time Taken Comments Blood Pressure 149/69 08/12/2024 3:57 PM STOCK SHAPER Pulse 71 08/12/2024 3:57 PM STOCK SHAPER Temperature 36.6 C (97.9 F) 01/01/2024 11:27 AM CDT Respiratory Rate 18 01/01/2024 11:27 AM CDT Oxygen Saturation 97% 08/12/2024 3:57 PM STOCK SHAPER Inhaled Oxygen Concentration - - Weight 74.8 kg (165 lb) 08/12/2024 3:57 PM STOCK SHAPER Height 167.6 cm (5' 6 ) 08/12/2024 3:57 PM STOCK SHAPER Body Mass Index 26.63 08/12/2024 3:57 PM STOCK SHAPER Plan of Treatment Health Maintenance Due Date Last Done Comments Albumin Creatinine Ratio, Urine 1938 Depression Screening 1938 Dilated Eye Exam 1938 Foot Exam 1938 DTaP/Tdap/Td Vaccine (1 - Tdap) 1949 Hepatitis B Screening 1956 Pneumococcal vaccine 65+ (1 of 2 - PCV) 1957 Zoster Vaccine (1 of 2) 1988 Well Visit 65+ 09/09/2003 Covid-19 Vaccine (6 - 2023-2 5 season) 2024 03/26/2023, 04/29/2022, 06/02/2021, Additional history exists Influenza Vaccine (#1) 2024 , 04/01/2023, 04/05/2022, Additional history exists Hemoglobin A1C 05/19/2024 11/17/2023, 04/25/2021 Fall Risk Assessment 12/30/2024 12/31/2023 Lipid Panel 12/31/2024 01/01/2024, 11/05, 04/24/2021 eGFR 01/21/2025 01/22/2024, 12/06, 12/30/2023, Additional history exists Medical Devices Implanted Type Area Client Support Consultant Device Identifier Shelf Expiration Date Model / Serial / Lot [employer] Angio-Seal Vip 6fr Closere Device [id number] - [id number] - [id number] Implanted:Qty: 1 on 12/03/2023 by Salvador Mejia MD PhD at [facility] Vascular Closure Device [employer] 07/28/2024 [id number] / [id number] / [id number] [employer] Tornier Aequalis Perform 36mm Lateralize Reverse Shoulder +3mm [id number] - [id number] - [id number] Implanted:Qty: 1 on 12/03/2023 by Marko Baum MD at [facility] Left: Shoulder [employer] 10/12/2028 [id number] / [id number] / [employer] Tornier Aequalis Perform 15mm Press Fit Long Post Shoulder [id number] - [id number] - [id number] Implanted:Qty: 1 on 12/03/2023 by Marko Baum MD at [facility] Left: Shoulder [employer] 05/20/2028 [id number] / [id number] / [employer] Aequalis Perform Od25 Mm Augment 35 D Half Wedge Baseplate Glenoid [id number] - [id number] - [id number] Implanted:Qty: 1 on 12/03/2023 by Marko Baum MD at [facility] Left: Shoulder [employer] 10/16/2028 [id number] / [id number] / [employer] Aequalis Perform Reversed 5mm 38mm Peripheral Glenoid Screw [id number] - [id number] Implanted:Qty: 1 on 12/03/2023 by Marko Baum MD at [facility] Left: Shoulder [employer] [id number] / / [employer] Aequalis Perform Reversed 5mm 14mm Peripheral Glenoid Screw [id number] - [id number] Implanted:Qty: 1 on 12/03/2023 by Marko Baum MD at [facility] Left: Shoulder [employer] [id number] / / [employer] Aequalis Perform Reversed 5mm 18mm Peripheral Glenoid Screw [id number] - [id number] Implanted:Qty: 1 on 12/03/2023 by Marko Baum MD at [facility] Left: Shoulder [employer] [id number] / / [employer] Aequalis Perform Reversed 5mm 22mm Peripheral Glenoid Screw [id number] - [id number] Implanted:Qty: 1 on 12/03/2023 by Marko Baum MD at [facility] Left: Shoulder [employer] [id number] / / [employer] Insert Humeral 10 Degree Reverse Size 1/2 +0 Perform 36mm Combination [id number] - [id number] - [id number] Implanted:Qty: 1 on 12/03/2023 by Marko Baum MD at [facility] Left: Shoulder [employer] 12/28/2027 [id number] / [id number] / [employer] Tray Stem Humeral Shoulder Reverse Aequalis Perform [id number] - [id number] - [id number] Implanted:Qty: 1 on 12/03/2023 by Marko Baum MD at [facility] Left: Shoulder [employer] 09/11/2027 [id number] / [id number] / Procedures Procedure Name Priority Date/Time Associated Diagnosis Comments EMG/NCV Routine 08/11/2024 2:16 PM STOCK SHAPER Paresthesia BASIC METABOLIC PANEL Routine 01/22/2024 12:55 PM CDT Stress-induced cardiomyopathy LIPID PANEL Routine 01/01/2024 10:17 AM CDT HEMOGLOBIN A1C Routine 11/17/2023 11:30 AM CDT Primary osteoarthritis of left shoulder Preoperative testing History of diabetes mellitus from Last 3 Months or Most Recently Relevant to Health Maintenance Results * EMG/NCV (08/11/2024 2:16 PM STOCK SHAPER) Anatomical Region Laterality Modality Other Narrative 08/11/2024 2:16 PM STOCK SHAPER Clem Garrido Si, MD 08/12/2024 9:43 AM EMG/NCV - Date/Time: 08/11/2024 2:16 PM Performed by: Clem Garrido Si, MD Authorized by: Clem Garrido Si, MD Local anesthesia used: no Anesthesia: Local anesthesia used: no Sedation: Patient sedated: no Comments: See attached procedure documentation. Procedure Note Clem Garrido Si, MD - 08/11/2024 2:00 PM CST EMG/NCV - Date/Time: 08/11/2024 2:16 PM Performed by: Clem Garrido Si, MD Authorized by: Clem Garrido Si, MD Local anesthesia used: no Anesthesia: Local anesthesia used: no Sedation: Patient sedated: no Comments: See attached procedure documentation. Clem Garrido MD NEUROLOGY ORDERABLES Final Resul t * (ABNORMAL) Basic metabolic panel (01/22/2024 12:55 PM CDT) Glucose 175(H) 64 - 99 mg/dL [facility] Comment: NONFASTING GLUCOSE RANGE = 64-199 mg/dL FASTING GLUCOSE 64 - 99 = NORMAL FASTING GLUCOSE 100 - 125 = IMPAIRED FASTING GLUCOSE FASTING GLUCOSE >=126 = PROVISIONAL DIAGNOSIS OF DIABETES Potassium 4.7 3.3 - 5.1 mmol/L [facility] Creatinine 0.82 0.60 - 1.10 mg/dL [facility] BUN 30(H) 7 - 23 mg/dL [facility] Sodium 140 135 - 145 mmol/L [facility] Chloride 102 95 - 107 mmol/L [facility] CO2 Content 25 21 - 29 mmol/L [facility] Calcium 9.5 8.6 - 10.3 mg/dL [facility] eGFR 70.1 >60.0 mL/min/1.7 3 m2 [facility] Blood 01/22/2024 12:5 5 PM CDT 01/22/2024 2:11 PM CDT us Rhett Suazo DIE INSPECTOR LAB BLOOD ORDERABLES Fin al Result [facility] * (ABNORMAL) Lipid panel (01/01/2024 10:17 AM CDT) Cholesterol 91 30 - 199 mg/dL Comment: Interpretive Data Ages < or = 19 years Acceptable: <170 mg/dL Borderline high: 170-199 mg/dL High: >or= 200 mg/dL Ages > or = 20 years Desirable: <200 mg/dL Borderline high: 200-239 mg/dL High: >or= 240 mg/dL Literature References: 1. Expert Panel on Integrated Guidelines for Cardiovascular Health and Risk Reduction in Children and Adolescents. Pediatrics 2011;128:S213 2. NCEP Expert Panel. Circulation 2004;110:227 Current Interpretive Data was last revised on 2018. Testing performed by: [facility], [address] [place] [address]., [address] Triglycerides 189(H) <=149 mg/dL [facility] Comment: Interpretive Data Ages < or = 9 years Acceptable: <75 mg/dL Borderline high: 75-99 mg/dL High: >or= 100 mg/dL Ages 10 to 20 years Acceptable: <90 mg/dL Borderline high: 90-129 mg/dL High: >or= 130 mg/dL Ages > or = 20 years Desirable: <150 mg/dL Borderline high: 150-199 mg/dL High: 200-499 mg/dL Very high: >or= 499 mg/dL Literature References: 1. Expert Panel on Integrated Guidelines for Cardiovascular Health and Risk Reduction in Children and Adolescents. Pediatrics 2011;128:S213 2. NCEP Expert Panel. Circulation 2004;110:227 Current Interpretive Data was last revised on 2018. Testing performed by: [address] [address] HDL 27(L) >=40 mg/dL [facility] Comment: Interpretive Data Ages < or = 19 years Acceptable: >45 mg/dL Borderline low: 40-45 mg/dL Low: <40 mg/dL Ages > or = 20 years Desirable: >or= 60 mg/dL Low: <40 mg/dL Literature References: 1. Expert Panel on Integrated Guidelines for Cardiovascular Health and Risk Reduction in Children and Adolescents. Pediatrics 2011;128:S213 2. NCEP Expert Panel. Circulation 2004;110:227 Current Interpretive Data was last revised on 2018. Testing performed by: [address] [address] LDL, calculated 26 <=129 mg/dL [facility] Comment: Interpretive Data Ages < or = 19 years Acceptable: <110 mg/dL Borderline high: 110-129 mg/dL High: >or= 130 mg/dL Ages > or = 20 years Optimal: <100 mg/dL Near optimal: 100-129 mg/dL Borderline high: 130-159 mg/dL High: >160 mg/dL Literature References: 1. Expert Panel on Integrated Guidelines for Cardiovascular Health and Risk Reduction in Children and Adolescents. Pediatrics 2011;128:S213 2. NCEP Expert Panel. Circulation 2004;110:227 Current Interpretive Data was last revised on 2018. Testing performed by: [address] [address] Non-HDL Cholesterol 64 mg/dL [facility] Comment: Interpretive Data Ages < or = 19 years Acceptable: <120 mg/dL Borderline high: 120-144 mg/dL High: >145 mg/dL Ages > or = 20 years When triglycerides are >200 mg/dL, Non-HDL cholesterol is a secondary target of therapy with treatment goals that are 30 mg/dL greater than the LDL cholesterol target. Literature References: 1. Expert Panel on Integrated Guidelines for Cardiovascular Health and Risk Reduction in Children and Adolescents. Pediatrics 2011;128:S213 2. NCEP Expert Panel. Circulation 2004;110:227 Current Interpretive Data was last revised on 2018. Testing performed by: [address] [address] Chol/HDL ratio 3 [facility] Comment:Testing performed by : [address] [address] Blood 01/01/2024 10:1 7 AM CDT 01/01/2024 10:49 AM CDT Francisco Phipps MD LAB BLOOD ORDERABLES Fi nal Result Performing Organization Address City/[facility]/ZIP Co de Phone Number [facility] [address] [facility] Department [place] [address] * (ABNORMAL) Hemoglobin A1c (11/17/2023 11:30 AM CDT) [facility] Hgb A1C 8.1(H) 4.0 - 5.6 % Estimated Average Glucose 186 mg/dL [facility] Comment: The ADA recommends reporting an estimated Average Glucose (eAG) with all Hemoglobin A1c results using the equation derived from a study of 507 normal and diabetic adults. Minority populations were underrepresented and children were not included. (Diabetes Care 2020; 43(S1): S66-S76). The eAG is not equivalent to a fasting glucose. Blood 11/17/2023 11:3 0 AM CDT 11/17/2023 1:18 PM CDT us Marko Baum MD LAB BLOOD ORDERABLES Final Result [facility] Department [place] [address] from Last 3 Months or Most Recently Relevant to Health Maintenance Insurance MEDICARE FOR[facility]LY [facility] MEDICARE BLUE CROSS MEDICARE SUPPLEMENT Advance Directives For more information, please contact: [phone] * Full Code (Latest Code Status on File) Date Activated Date Inactivated Comments 12/30/2023 1:54 PM 01/01/2024 5:22 PM * Full Code Date Activated Date Inactivated Comments 12/03/2023 4:30 PM 12/08/2023 6:22 PM * Full Code Date Activated Date Inactivated Comments 12/03/2023 4:13 PM 12/03/2023 4:30 PM * LIMITED - No CPR Date Activated Date Inactivated Comments 04/24/2021 4:41 PM 04/25/2021 9:09 PM Care Teams Traffic Ii Manager Relationship Specialty Start Date End Date Jennifer Chris DO PCP - General Family Medicine 08/05/22 Carissa Aragon MD Surgeon Surgical Oncology 07/11/22
--- OUTSIDE RECORDS SUMMARY | 2024-09-21 10:20 | XMS_ITS | Patient Health Record ---
Author Organization [facility] Address [address] [place], [place] [id number] Care Team Providers Care Electric Motor Assembler Name Role Phone Jennifer Chris Unavailable Unavailable CHEIKH COBIAN Unavailable [phone] Allergies Allergen (clinical drug ingredient) Drug/Non Drug Allergy documented on EMR Reaction Allergy Type Onset Date Status Tape Unknown Allergy Active Reason For Referral No Information Immunizations Vaccine Route Administration Date Status Comme nts Influenza, high dose seasonal Unknown 04/05/2023 Admini stered Social History Tobacco Use: Social History Observation Description Date Details (start date - stop date) Former Smoker NA - NA Tobacco Use/Smoking Question Answer Notes Tobacco use: former smoker Vital Signs Height-cm 167.64 cm 06/10/2024 Weight-kg 86.18 kg 06/10/2024 Height 66 in 06/10/2024 Weight 190 lbs 06/10/2024 BMI 30.66 kg/m2 06/10/2024 Encounters Encounter Location Date Provider Diagnosis [facility] [address] [place] [id number] 09/26/2023 CHEIKH COBIAN Onychomycosis B35.1 ; Pain in right toe(s) M79.674 ; Pain in left toe(s) M79.675 and Unspecified atherosclerosis of [place] arteries of extremities, bilateral legs I70.203 [facility] [address] [place], [place] [id number] 01/29/2024 CHEIKH COBIAN Fungal infection of nail B35.1 ; Pain in right toe(s) M79.674 ; Pain in left toe(s) M79.675 and Unspecified atherosclerosis of [place] arteries of extremities, bilateral legs I70.203 [facility] [address] [place] [id number] 04/01/2024 CHEIKH COBIAN Fungal infection of nail B35.1 ; Pain in right toe(s) M79.674 ; Pain in left toe(s) M79.675 ; Unspecified atherosclerosis of [place] arteries of extremities, bilateral legs I70.203 ; Atherosclerosis of [place] arteries of extremities with intermittent claudication, bilateral legs I70.213 and Onychomycosis B35.1 [facility] [address] [place] [id number] 06/10/2024 CHEIKH COBIAN Fungal infection of nail B35.1 ; Pain in right toe(s) M79.674 ; Pain in left toe(s) M79.675 ; Unspecified atherosclerosis of [place] arteries of extremities, bilateral legs I70.203 ; Atherosclerosis of [place] arteries of extremities with intermittent claudication, bilateral legs I70.213 and Onychomycosis B35.1 Assessments Encounter Date Diagnosis (ICD Code) Assessment Notes Treatment Notes Treatment Clinical Notes Section Notes 09/26/2023 Onychomycosis (ICD-10 - B35.1) 01/29/2024 Pain in right toe(s) (ICD-10 - M79.674) 01/29/2024 Fungal infection of nail (ICD-10 - B35.1) 04/01/2024 Fungal infection of nail (ICD-10 - B35.1) 06/10/2024 Fungal infection of nail (ICD-10 - B35.1) 06/10/2024 Pain in right toe(s) (ICD-10 - M79.674) 04/01/2024 Pain in right toe(s) (ICD-10 - M79.674) 01/29/2024 Pain in left toe(s) (ICD-10 - M79.675) 09/26/2023 Pain in right toe(s) (ICD-10 - M79.674) 09/26/2023 Pain in left toe(s) (ICD-10 - M79.675) 01/29/2024 Unspecified atherosclerosis of [place] arteries of extremities, bilateral legs (ICD-10 - I70.203) 04/01/2024 Pain in left toe(s) (ICD-10 - M79.675) 06/10/2024 Pain in left toe(s) (ICD-10 - M79.675) 06/10/2024 Unspecified atherosclerosis of [place] arteries of extremities, bilateral legs (ICD-10 - I70.203) 04/01/2024 Unspecified atherosclerosis of [place] arteries of extremities, bilateral legs (ICD-10 - I70.203) 09/26/2023 Unspecified atherosclerosis of [place] arteries of extremities, bilateral legs (ICD-10 - I70.203) 04/01/2024 Atherosclerosis of [place] arteries of extremities with intermittent claudication, bilateral legs (ICD-10 - I70.213) 06/10/2024 Atherosclerosis of [place] arteries of extremities with intermittent claudication, bilateral legs (ICD-10 - I70.213) 04/01/2024 Onychomycosis (ICD-10 - B35.1) Nails 1-5 Bilateral were debrided extensively with nail nippers and emery board, reducing length and girth to pink healthy tissue with any subungual debris and necrotic tissue removed 06/10/2024 Onychomycosis (ICD-10 - B35.1) Nails 1-5 Bilateral were debrided extensively with nail nippers and emery board, reducing length and girth to pink healthy tissue with any subungual debris and necrotic tissue removed 09/26/2023 Other Nails 1-5 Bilateral were debrided extensively with nail nippers and emery board, reducing length and girth to pink healthy tissue with any subungual debris and necrotic tissue removed All corns or calluses, as described in the note above, were cut and pared utilizing a #15 blade Plan Of Treatment Next Appt Details Provider Name:CHEIKH COOPER, 09/30/2024 01:10:00 PM, [address], [facility], [place], [place], [phone], Insurance Providers Payer Name Payer Address Payer Phone Subscriber Number Group Number Insured Name Patient Relationship to Insured Coverage Start Date Coverage End Date Medicare Part B [facility] [address] [place] [phone] [id number] NOELMANFRED Self - patient is the insured 4 [facility] ([facility]) ATTN CLAIMS [address] [place] [address] [id number] ONEL, MANFRED Jin - patient is the insured Medical (General) History Medical History History ICD Code Cancer (type of cancer) Arthritis skin cancer thyroid disease Diabetic varicose veins Blood clots Surgical History Surgery Date(Month/Year) knee replacement partial hysterectomy gall bladder shoulder,bilateral
--- OUTSIDE RECORDS SUMMARY | 2024-09-21 10:20 | XMS_ITS ---
Author Organization [facility] Address [address] [place], [place] [id number] Care Team Providers Care Termite Control Servicer Name Role Phone Jennifer Chris Unavailable Unavailable CHEIKH SCHROEDER Unavailable [phone] Allergies Allergen (clinical drug ingredient) Drug/Non Drug Allergy documented on EMR Reaction Allergy Type Onset Date Status Tape Unknown Allergy Active REASON FOR VISIT *General care Social History Tobacco Use: Social History Observation Description Date Details (start date - stop date) Former Smoker NA - NA Tobacco Use/Smoking Question Answer Notes Tobacco use: former smoker Vital Signs Height 66 in 06/10/2024 Weight 190 lbs 06/10/2024 BMI 30.66 kg/m2 06/10/2024 Height-cm 167.64 cm 06/10/2024 Weight-kg 86.18 kg 06/10/2024 Encounters Encounter Location Date Provider Diagnosis [facility] [address] [place], [place] [id number] 06/10/2024 CHEIKH SCHROEDER Fungal infection of nail B35.1 ; Pain in right toe(s) M79.674 ; Pain in left toe(s) M79.675 ; Unspecified atherosclerosis of [place] arteries of extremities, bilateral legs I70.203 ; Atherosclerosis of [place] arteries of extremities with intermittent claudication, bilateral legs I70.213 and Onychomycosis B35.1 Assessments Encounter Date Diagnosis (ICD Code) Assessment Notes Treatment Notes Treatment Clinical Notes Section Notes 06/10/2024 Fungal infection of nail (ICD-10 - B35.1) 06/10/2024 Pain in right toe(s) (ICD-10 - M79.674) 06/10/2024 Pain in left toe(s) (ICD-10 - M79.675) 06/10/2024 Unspecified atherosclerosis of [place] arteries of extremities, bilateral legs (ICD-10 - I70.203) 06/10/2024 Atherosclerosis of [place] arteries of extremities with intermittent claudication, bilateral legs (ICD-10 - I70.213) 06/10/2024 Onychomycosis (ICD-10 - B35.1) Nails 1-5 [...] COOPER, 09/30/2024 01:10:00 PM, [address], [address], [id number], Progress Notes * MANFRED SYKESDOB:1940 (83 yo F)Acc No.[id number]:06/10/2024 Patient: MANFRED BROWN Provider: Jaime Schroeder DPM :1940 A ge:83 Y S ex:Female Date:06/10/2024 Address:[address] [place] [address] Subjective: * Chief Complaints: * * General care * HPI: H PI: General care P atient presents to the office for diabetic foot care. Patient states that their nails are thickened, elongated and painful. Patient states that it is aggravated by shoe gear. Onset is gradual. Patient is taking prescription blood thinners. Date last seen by Dr. Chris was 04/2024. Initials sea. * Medical History: * Surgical History: k nee replacement partial hysterectomy gall bladder shoulder,bilateral * Hospitalization/Major Diagno stic Procedure: * Social History: T obacco Use: T obacco Use/Smoking T obacco use: f ormer smoker D rugs/Alcohol: D o you drink alcohol?: No. * Medications: * Allergies: T ape Objective: * Vitals: W t: 190 lbs, Wt-k.18 kg, Ht: 66 in, Ht-cm: 167.64 cm, BMI: 30.66 Index, Body Surface Area: 2. * Examination: C onstitutional: Constitutional T he [...] M79.675 4 . U nspecified atherosclerosis of [place] arteries of extremities, bilateral legs - I70.203 5 . A therosclerosis of [place] arteries of extremities with intermittent claudication, bilateral legs - I70.213 6 . O nychomycosis - B35.1 Plan: * Treatment: * Procedure Codes: 1 1721 DEBRIDE NAIL, 6 OR MORE, Modifiers: Q8 * Follow Up: 9 weeks * Billing Information: * Visit Code: * Procedure Codes: 81857 DEBRIDE NAIL, 6 OR MORE. Modifiers: Q8 * OGRAPHING MACHINE OPERATOR Sign off status: Completed true * Provider: Jaime Schroeder DPM Date: 08/11/2023 Generated for Jessica morgan/Mik/Marquezitting on: 0 09/21/2024 10:19 AM CDT History and Physical Notes * HPI (History of Present Illness) Category Sub-Category Detail Notes Category Not es HPI General care Patient presents to the office for diabetic foot care. Patient states that their nails are thickened, elongated and painful. Patient states that it is aggravated by shoe gear. Onset is gradual. Patient is taking prescription blood thinners. Date last seen by Dr. Chris was 04/2024. Initials sea Examination Category Sub-Category Detail Notes Category Not [...]
--- OUTSIDE RECORDS SUMMARY | 2024-09-21 10:20 | XMS_ITS ---
Author Organization [facility] Address [address] [place], [place] [phone] Care Team Providers Care Fire Fighters Dispatcher Name Role Phone Jennifer Chris Unavailable Unavailable CHEIKH SCHROEDER Unavailable [phone] Allergies Allergen (clinical drug ingredient) Drug/Non Drug Allergy documented on EMR Reaction Allergy Type Onset Date Status Tape Unknown Allergy Active REASON FOR VISIT *General care Social History Tobacco Use: Social History Observation Description Date Details (start date - stop date) Former Smoker NA - NA Tobacco Use/Smoking Question Answer Notes Tobacco use: former smoker Vital Signs Height 66 in 01/29/2024 Weight 190 lbs 01/29/2024 BMI 30.66 kg/m2 01/29/2024 Height-cm 167.64 cm 01/29/2024 Weight-kg 86.18 kg 01/29/2024 Encounters Encounter Location Date Provider Diagnosis [facility] [address] [place], [place] [phone] 01/29/2024 CHEIKH SCHROEDER Fungal infection of nail B35.1 ; Pain in right toe(s) M79.674 ; Pain in left toe(s) M79.675 and Unspecified atherosclerosis of [place] arteries of extremities, bilateral legs I70.203 Assessments Encounter Date Diagnosis (ICD Code) Assessment Notes Treatment Notes Treatment Clinical Notes Section Notes 01/29/2024 Fungal infection of nail (ICD-10 - B35.1) 01/29/2024 Pain in right toe(s) (ICD-10 - M79.674) 01/29/2024 Pain in left toe(s) (ICD-10 - M79.675) 01/29/2024 Unspecified atherosclerosis of [place] arteries of extremities, bilateral legs (ICD-10 - I70.203) Plan Of Treatment Next Appt Details Provider Name:CHEIKH COOPER, 09/30/2024 01:10:00 PM, [address], [facility], [place], [place], [id number], Progress Notes * MANFRED SYKESDOB:1940 (83 yo F)Acc No.[id number]:01/29/2024 Patient: MANFRED BROWN Provider: Jaime Schroeder DPM :1940 A ge:83 Y S ex:Female Date:01/29/2024 Address:[address] [place], [place] [phone] Subjective: * Chief Complaints: * 1 . *General care. * HPI: H PI: General care P atient presents to the office for diabetic foot care. Patient states that their nails are thickened, elongated and painful. Patient states that it is aggravated by shoe gear. Onset is gradual. Patient is taking prescription blood thinners. Date last seen by Dr. Chris was 01/2024. Initials sea. * Medical History: C ancer (type of cancer), Arthritis, Skin cancer, Thyroid disease, Diabetic, Varicose veins, Blood clots. * Surgical History: k nee replacement , partial hysterectomy , gall bladder , shoulder,bilateral . * Social History: T obacco Use: T obacco Use/Smoking T obacco use: f ormer smoker D rugs/Alcohol: D o you drink alcohol?: No. * Allergies: T ape. Objective: * Vitals: W t: 190 lbs, Wt-k.18 kg, Ht: 66 in, Ht-cm: 167.64 cm, BMI: 30.66 Index, Body Surface Area: 2. Assessment: * Assessment: 1. F ungal infection of nail - B35.1 (Primary) 2 . P ain in right toe(s) - M79.674 3 . P ain in left toe(s) - M79.675 4 . U nspecified atherosclerosis of [place] arteries of extremities, bilateral legs - I70.203 Plan: * Treatment: * Procedure Codes: 1 1721 DEBRIDE NAIL, 6 OR MORE, Modifiers: Q8 * Billing Information: * Visit Code: * Procedure Codes: 55394 DEBRIDE NAIL, 6 OR MORE. Modifiers: Q8 * Sign off status: Completed true * Provider: Jaime Schroeder DPM Date: 0 01/29/2024 Generated for Jessica Felix/Yuri on: 0 09/21/2024 10:19 AM CDT History [...] Date last seen by Dr. Chris was 01/2024. Initials sea
--- OUTSIDE RECORDS SUMMARY | 2024-09-21 10:20 | XMS_ITS | Referral Summary ---
Author Organization [facility] Address [address] [place] [address] Care Team Providers Care Non Destructive Evaluation Manager Name Role Phone Carissa Aragon MD Unavailable [phone] Jennifer Chris DO Primary Care Provider [phone] Encounters Date Type Department Care Team Description 09/09/2024 Telephone [facility] Cardiology [facility] [address]th [place] [address] [place] [phone] Dwayne Grewal MD Med Management 08/12/2024 4:00 PM SUPPORT SERVICES COORDINATOR Office Visit [facility] Cardiology [facility] 8th [place] [address] [place] [address] Dwayne Grewal MD Stress-induced cardiomyopathy (Primary Dx); Primary hypertension; Nonobstructive atherosclerosis of coronary artery 08/11/2024 2:00 PM SUPPORT SERVICES COORDINATOR Procedure visit [facility] Neurology [address] [place] [phone] Clem Garrido Si, MD Carpal tunnel syndrome of right wrist (Primary Dx); Paresthesia from Last 3 Months Allergies Active Allergy Reactions Criticality Noted Date [...] 1 capsule (150 mcg total) by mouth dental treatment coordinator before breakfast 1 Active SITagliptin (JANUVIA) 25 [...] 10:52 AM CDT): LHC from 12/2023 noted oqiq-no-puunegqp coronary plaquing in LAD, circumflex and right coronary. No angina. Continue atorvastatin and metoprolol XL. She will discuss with her family doctor and vascular surgery regarding continuing on aspirin or Plavix alone given history lower extremity clots. Assessment & Plan (01/22/2024 9:03 PM CDT): LHC from 12/2023 noted cbof-ki-bpopeddl coronary plaquing in LAD, circumflex and right [...] NEC Hypothyroidism 11/20/2013 Overview (10/12/2016): HYPOTHYROIDISM NOS Social History Tobacco Use Types Packs/Day Years Used Date Smoking Tobacco: Former Cigarettes 2 50 1 954 - 2004 Passive Smoke Exposure: Past Smokeless Tobacco: Never Tobacco Cessation:Counseling Given: Not Answered Alcohol Use Standard Drinks/Week Comments No 0 (1 standard drink = 0.6 oz pur e alcohol) [facility] Utilities Answer Date Recorded In the past 12 months has th e electric, gas, oil, or water company [...] often do you attend chur ch or pentecostalism services? More than 4 times per year 12/31/2023 Do you belong to any clubs o r organizations such as faith groups, unions, fraternal or athletic groups, or [...] any time in the past 12 m [facility], were you homeless or living in a custodial (including now)? No 12/31/2023 Personal Safety Answer Date Recorded Have you ever been in or are you currently in a harmful physical or emotional relationship or is someone making you feel afraid or unsafe? Denies 12/30/2023 Comments No Sex and Gender Information Value Date Recorded Sex Assigned at Not on file Legal Sex Female 11:44 PM SUPPORT SERVICES COORDINATOR Gender Identity Not on file Sexual Orientation Not on file Last Filed Vital Signs Vital Sign Reading Time Taken Comments Blood Pressure 149/69 08/12/2024 3:57 PM SUPPORT SERVICES COORDINATOR Pulse 71 08/12/2024 3:57 PM SUPPORT SERVICES COORDINATOR Temperature 36.6 C (97.9 F) 01/01/2024 11:27 AM CDT Respiratory Rate 18 01/01/2024 11:27 AM CDT Oxygen Saturation 97% 08/12/2024 3:57 PM SUPPORT SERVICES COORDINATOR Inhaled Oxygen Concentration - - Weight 74.8 kg (165 lb) 08/12/2024 3:57 PM SUPPORT SERVICES COORDINATOR Height 167.6 cm (5' 6 ) 08/12/2024 3:57 PM SUPPORT SERVICES COORDINATOR Body Mass Index 26.63 08/12/2024 3:57 PM SUPPORT SERVICES COORDINATOR Plan of Treatment Not on file Medical Devices Implanted Type Area Design Tech Device Identifier Shelf Expiration Date Model / Serial / Lot Infinia Viola Angio-Seal Vip 6fr Closere Device [id number] - [id number] - [id number] Implanted:Qty: 1 on 12/03/2023 by Salvador Mejia MD PhD at [facility] Vascular Closure Device [employer] Viola 07/28/2024 [id number] / [id number] / [id number] [employer] Tornier Aequalis Perform 36mm Lateralize Reverse Shoulder +3mm [id number] - [id number] - [id number] Implanted:Qty: 1 on 12/03/2023 by Marko Baum MD at [facility] Left: Shoulder [employer] 10/12/2028 [id number] / [id number] / [employer] Tornier Aequalis Perform 15mm Press Fit Long Post Shoulder [id number] - [id number] - [id number] Implanted:Qty: 1 on 12/03/2023 by Marko Baum MD at [facility] Left: Shoulder [employer] 05/20/2028 [id number] / [id number] / [employer] Aequalis Perform Od25 Mm Augment 35 D Half Wedge Baseplate Glenoid [id number] - [id number] - [id number] Implanted:Qty: 1 on 12/03/2023 by Marko Baum MD at [facility] Left: Shoulder [employer] 10/16/2028 [id number] / [id number] / [employer] Aequalis Perform Reversed 5mm 38mm Peripheral Glenoid Screw [id number] - [id number] Implanted:Qty: 1 on 12/03/2023 by Marko Baum MD at [facility] Left: Shoulder [employer] [id number] / / [employer] Aequalis Perform Reversed 5mm 14mm Peripheral Glenoid Screw [id number] - [id number] Implanted:Qty: 1 on 12/03/2023 by Marko Baum MD at [facility] Left: Shoulder [employer] [id number] / / [employer] Aequalis Perform Reversed 5mm 18mm Peripheral Glenoid Screw Icq174 - [id number] Implanted:Qty: 1 on 12/03/2023 by Marko Baum MD at [facility] Left: Shoulder [employer] [id number] / / [employer] Aequalis Perform Reversed 5mm 22mm Peripheral Glenoid Screw [id number] - [id number] Implanted:Qty: 1 on 12/03/2023 by Marko Baum MD at [facility] Left: Shoulder [employer] [id number] / / [employer] Insert Humeral 10 Degree Reverse Size 1/2 +0 Perform 36mm Combination [id number] - [id number] - [id number] Implanted:Qty: 1 on 12/03/2023 by Marko Baum MD at [facility] Left: Shoulder Mobile Pulse [employer] 12/28/2027 [id number] / [id number] / [employer] Tray Stem Humeral Shoulder Reverse Aequalis Perform [id number] - [id number] - [id number] Implanted:Qty: 1 on 12/03/2023 by Marko Baum MD at [facility] Left: Shoulder Mobile Pulse [employer] 09/11/2027 [id number] / [id number] / Procedures Procedure Name Priority Date/Time Associated Diagnosis Comments EMG/NCV Routine 08/11/2024 2:16 PM SUPPORT SERVICES COORDINATOR Paresthesia BASIC METABOLIC PANEL Routine 01/22/2024 12:55 PM CDT Stress-induced cardiomyopathy LIPID PANEL Routine 01/01/2024 10:17 AM CDT HEMOGLOBIN A1C Routine 11/17/2023 11:30 AM CDT Primary osteoarthritis of left shoulder Preoperative testing History of diabetes mellitus from Last 3 Months or Most Recently Relevant to Health Maintenance Results * EMG/NCV (08/11/2024 2:16 PM SUPPORT SERVICES COORDINATOR) Anatomical Region Laterality Modality Other Narrative 08/11/2024 2:16 PM SUPPORT SERVICES COORDINATOR Clem Garrido Si, MD 08/12/2024 9:43 AM [...] 5 PM CDT 01/22/2024 2:11 PM CDT Rhett Suazo NP LAB BLOOD ORDERABLES Fin al Result CASTRO [...] last revised on 2018. Testing performed by: [address] [address] Triglycerides 189(H) <=149 mg/dL [facility] Comment: Interpretive Data Ages < [...] last revised on 2018. Testing performed by: [address] [address] HDL 27(L) >=40 mg/dL [facility] Comment: Interpretive [...] last revised on 2018. Testing performed by: [address] [address] LDL, calculated 26 <=129 mg/dL [facility] Comment: [...] last revised on 2018. Testing performed by: [address] [address] Non-HDL Cholesterol 64 mg/dL [facility] Comment: Interpretive [...] last revised on 2018. Testing performed by: [address] [address] Chol/HDL ratio 3 [facility] Comment:Testing performed by : [address] [address] Blood 01/01/2024 10:1 7 AM CDT 01/01/2024 10:49 AM CDT Francisco Phipps MD LAB BLOOD ORDERABLES nal Result [facility] [address] [facility] Department [place] [address] * (ABNORMAL) Hemoglobin A1c (11/17/2023 11:30 AM CDT) Hgb A1C 8.1(H) 4.0 - 5.6 % Estimated Average Glucose 186 mg/dL [facility] Comment: The ADA recommends reporting an estimated Average Glucose (eAG) with all Hemoglobin A1c results using the equation derived from a study of 507 normal and diabetic adults. Minority populations were underrepresented and children were not included. (Diabetes Care 2020; 43(S1): S66-S76). The eAG is not equivalent to a fasting glucose. Blood 11/17/2023 11:3 0 AM CDT 11/17/2023 1:18 PM CDT Marko Baum MD LAB BLOOD ORDERABLES Final Result Performing Organization Address City/State/ZIP Co nm Phone Number [facility] Department [place] [address] from Last 3 Months or Most Recently Relevant to Health Maintenance Insurance MEDICARE [facility] MEDICARE [facility] MEDICARE SUPPLEMENT Advance Directives For more information, please contact: [phone] * Full Code (Latest Code Status on [...] 4:41 PM 04/25/2021 9:09 PM Care Teams Non Destructive Evaluation Manager Relationship Specialty Start Date End Date Jennifer Chris DO PCP - General Family Medicine 08/05/22 Carissa Aragon MD Surgeon Surgical Oncology 07/11/22
[2024-09-21 13:55] LABS: Alanine Aminotransferase 20 U/L (6-35); Albumin Level 4.2 g/dL (3.5-5.1); Alkaline Phosphatase 87 U/L (38-126); Anion Gap 8 mmol/L (4-12); Aspartate Amino Transferase 54 U/L (14-36); Bilirubin,Total 0.7 mg/dL (0.2-1.3); Blood Urea Nitrogen 29 mg/dL (7-17); Calcium 9.2 mg/dL (8.4-10.2); Carbon Dioxide 31 mmol/L (22-30); Chloride 100 mmol/L (98-107); Cholesterol 89 mg/dL (0-200); Estimated Glomerular Filt Rate > 60; Glucose 154 mg/dL (65-110); HDL Direct 27 mg/dL; Potassium 4.4 mmol/L (3.4-5.0); Sodium 139 mmol/L (137-145); Triglycerides 143 mg/dL (<150)
[2024-09-21 14:09] LABS: Free T4 Free Thyroxine 1.75 ng/dL (0.78-2.19)
[2024-09-21 14:22] LABS: Creatinine Urine 52.8 mg/dL
[2024-09-21 14:23] LABS: Hemoglobin A1C 8.1 % (<5.7); LDL Cholesterol Direct < 30 mg/dL
[2024-09-21 14:24] LABS: Thyroid Stimulating Hormone 0.494 uIU/mL (0.465-4.680)
[2024-09-21 14:37] LABS: Microalbumin Urine Random 35.9 mg/L (0-16.7)
== END 2024-09-21 09:27 | disposition home or self-care (01) ==
LOC: ANHGOSHLAB 09:28
PROVIDERS: PCP Family Medicine; Visit Provider Nurse Practitioner
DX: E78.5 Hyperlipidemia, unspecified (principal); I10 Essential (primary) hypertension; E11.65 Type 2 diabetes mellitus with hyperglycemia; E03.9 Hypothyroidism, unspecified; E55.9 Vitamin D deficiency, unspecified; E87.5 Hyperkalemia
CPT/HCPCS: 36415; 80053; 80061; 82043; 82306; 83036; 84439; 84443

== ENCOUNTER 2024-10-02 11:57 | Outpatient (CLI) | payer MEDICARE, SELFPAY ==
--- NOTE | ~2024-10-02 | XR_ITS ---
XR lumbar spine 2-3V 10/02/2024 12:26 Indication: Back pain Procedure: 3 views lumbar spine Comparison: 08/23/2024 Findings: Stable height of wedge compression fracture of L2 with retrolisthesis at L2-3. There is dis c narrowing at L1-2 through L4-5. There are facet degenerative changes at L3-4, L4-5 and L5-S1. There is grade 1 spondylolisthesis at L5-S1 secondary to bilateral spondylolysis. There is mild levocurvat ure of the lumbar spine. There is fecal impaction of the visualized colon. Impression: 1: Severe lumbar spondylosis with retrolisthesis at L2-3 and anterolisthesis at L5-S1 secondary to sp ondylolysis. 2: L2 wedge compression fracture reidentified with increasing sclerosis at the inferior endplate sugg esting subacute fracture. Reviewed, dictated and finalized at location A. Impression: 1: Severe lumbar spondylosis with retrolisthesis at L2-3 and anterolisthesis at L5-S1 secondary to spondylolysis. 2: L2 wedge compression fracture reidentified with increasing sclerosis at the inferior endplate suggesting subacute fracture.
--- OUTSIDE RECORDS SUMMARY | 2024-10-02 12:05 | XMS_ITS ---
Author Organization [facility] Address [address] [place], [place] [id number] Care Team Providers Care Production Recovery Operator Name Role Phone CHEIKH SCHROEDER Unavailable [phone] Vernace, Jennifer Unavailable Unavailable Allergies Allergen (clinical drug ingredient) Drug/Non Drug [...] Location Date Provider Diagnosis [facility] [address] [place], [place] [id number] 06/10/2024 CHEIKH SCHROEDER Fungal infection of nail B35.1 ; Pain in right toe(s) M79.674 ; Pain in left toe(s) M79.675 ; Unspecified atherosclerosis of [place] arteries of extremities, bilateral legs I70.203 ; Atherosclerosis of [place] arteries of extremities with intermittent claudication, bilateral legs I70.213 and Onychomycosis B35.1 Assessments Encounter Date Diagnosis (ICD Code) Assessment Notes Treatment Notes Treatment Clinical Notes Section Notes 06/10/2024 Fungal infection of nail (ICD-10 - B35.1) 06/10/2024 Pain in right toe(s) (ICD-10 - M79.674) 06/10/2024 Pain in left toe(s) (ICD-10 - M79.675) 06/10/2024 Unspecified atherosclerosis of [place] arteries of extremities, bilateral legs (ICD-10 - I70.203) 06/10/2024 Atherosclerosis of [place] arteries of extremities with intermittent claudication, bilateral [...] Up: 9 weeks, Reason: Provider Name:CHEIKH COOPER, 12/16/2024 10:20:00 AM, [address], [address], [phone], Progress Notes * MANFRED SYKESDOB:1940 (83 yo F)Acc No.[id number]:06/10/2024 Patient: MANFRED BROWN Provider: Jaime Schroeder DPM :1940 A ge:83 Y S ex:Female Date:06/10/2024 Address:[address] [place] [address] Subjective: * Chief Complaints: * * General [...] M79.675 4 . U nspecified atherosclerosis of [place] arteries of extremities, bilateral legs - I70.203 5 . A therosclerosis of [place] arteries of extremities with intermittent claudication, bilateral legs - I70.213 6 . O nychomycosis - B35.1 Plan: * Treatment: * Procedure Codes: 1 1721 DEBRIDE NAIL, 6 OR MORE, Modifiers: Q8 * Follow Up: 9 weeks * Billing Information: * Visit Code: * Procedure Codes: 11851 DEBRIDE NAIL, 6 OR MORE. Modifiers: Q8 * TOR OPERATOR Sign off status: Completed true * Provider: Jaime Schroeder DPM Date: 08/11/2023 Generated for Jessica morgan/Mik/Marquezitting on: 0 10/02/2024 12:05 PM CDT History and Physical Notes * HPI [...]
--- OUTSIDE RECORDS SUMMARY | 2024-10-02 12:05 | XMS_ITS ---
Author Organization [facility] Address [address] [place], [place] [id number] Care Team Providers Care Twitchell Operator Name Role Phone MANGO CHEIKH Unavailable [phone] Vernace, Jennifer Unavailable Unavailable REASON FOR VISIT *General care Encounters Encounter Location Date Provider Diagnosis [facility] [place] [address] [place], [place] [id number] 04/01/2024 CHEIKH SCHROEDER Fungal infection of nail B35.1 ; Pain in right toe(s) M79.674 ; Pain in left toe(s) M79.675 ; Unspecified atherosclerosis of [place] arteries of extremities, bilateral legs I70.203 ; Atherosclerosis of [place] arteries of extremities with intermittent claudication, bilateral legs I70.213 and Onychomycosis B35.1 Assessments Encounter Date Diagnosis (ICD Code) Assessment Notes Treatment Notes Treatment Clinical Notes Section Notes 04/01/2024 Fungal infection of nail (ICD-10 - B35.1) 04/01/2024 Pain in right toe(s) (ICD-10 - M79.674) 04/01/2024 Pain in left toe(s) (ICD-10 - M79.675) 04/01/2024 Unspecified atherosclerosis of [place] arteries of extremities, bilateral legs (ICD-10 - I70.203) 04/01/2024 Atherosclerosis of [place] arteries of extremities with intermittent claudication, bilateral [...] COOPER, 12/16/2024 10:20:00 AM, [address], [address], [phone], Progress Notes * MANFRED SYKESDOB:1940 (83 yo F)Acc No.[id number]:04/01/2024 Patient: MANFRED BROWN Provider: Jaime Schroeder DPM :1940 A ge:83 Y S ex:Female Date:04/01/2024 Address:[address] [place] [address] Subjective: * Chief Complaints: * * General [...] M79.675 4 . U nspecified atherosclerosis of [place] arteries of extremities, bilateral legs - I70.203 5 . A therosclerosis of [place] arteries of extremities with intermittent claudication, bilateral legs - I70.213 6 . O nychomycosis - B35.1 Plan: * Treatment: * Procedure Codes: 1 1721 DEBRIDE NAIL, 6 OR MORE, Modifiers: Q8 * Follow Up: 9 weeks * Billing Information: * Visit Code: * Procedure Codes: 69004 DEBRIDE NAIL, 6 OR MORE. Modifiers: Q8 * Sign off status: Completed true * Provider: Jaime Schroeder DPM Date: 0 04/01/2024 Generated for Jessica morgan/Mik/Yuri on: 0 10/02/2024 12:05 PM CDT History and Physical Notes * Examination [...]
--- OUTSIDE RECORDS SUMMARY | 2024-10-02 12:05 | XMS_ITS | Data Portability ---
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 She does have some early rotator cuff tear arthropathy with mild narrowing of the superior glenohumeral joint space noted. I have discussed options with her. In this setting it is very unlikely she would have a repairable rotator cuff. I have offered her a cortisone shot trying give her relief from her more severe pain she was try this. I explained that it may make her blood sugars go for acute days and the small risk of infection was discussed with her and her daughter. After ChloraPrep prep, 20 mg of Kenalog and 4 cc of 0.5% ropivacaine were injected into the subacromial space from a posterior approach without difficulty and she tolerated this well. To arrange for physical therapy. I will see her back in 6 weeks to assess her progress. She has not substantially improved it may be appropriate to obtain MRI scan to assess the shoulder is status the diagnosis accurately. 30 minutes were spent total care this patient more than half the time spent in [id number] care. Not available 04/28/2023 16:49:32 06/09/2023 06/09/2023 Patient returns. We gave her cortisone shot in left shoulder 6 weeks ago. Seemed to give her some relief for about 2 days and then her severe pain returned. It aches at rest and she has difficulty raising the arm. Exam today she has active elevation about 100 with quite a bit of pain left shoulder. There is no redness swelling or warmth. She has moderate weakness with belly press and moderate weakness with thumbs down abduction strength testing. She underwent acromioplasty and distal clavicle [place] [address] Hitchcock. Impression: I suspect that Mrs. Dubois has a large rotator cuff tear involving subscapularis and supraspinatus tendons. I would recommend obtaining an MRI scan to be certain of the diagnosis. She does have a history of breast cancer in the past. I will see her back after the test. 20 minutes were spent total care this patient more than half the time spent in [id number]-tw-[id number] care. Not available 06/09/2023 15:19:58 06/13/2023 06/13/2023 Impression: Patient has severe tendinopathy diffusely in the rotator cuff with a mid substance high-grade partial-thickness tear subscapularis tendon and very small probably less significant interstitial partial-thickness tears of the supraspinatus and infraspinatus tendons. Also she has a significant split tear of the long of the biceps. Patient has had symptoms since this summer. She had a cortisone shot approximately 7 weeks ago which did help very much. She has been through physical therapy which did help and she could not tolerate. She is looking for relief. I have discussed with her and her daughter that 1 option would be a biceps tenotomy which can be done arthroscopically I am not sure that is going to give her the relief she is looking for. Unfortunately, midsubstance tear of the subscapularis with atrophy is not very likely to be repairable as the healing potential is very poor. I recommended that patient be evaluated by doctors Cody and Bautista for an opinion of whether they feel they could offer her procedure that would have some expectation to improve her symptoms. They are agreeable with this approach and I will be happy to see her back as needed. 20 minutes were spent total care this patient more than half the time spent in ttxl-yh-tukj care. I did explain the findings to patient and her daughter in detail. Not available 06/15/2023 20:09:00 Plan of Treatment Reminders Order Date Submit Date Provider Last Modified By Organization Details Last Modified Time Details Appointments None recorded. Lab None recorded. Referral orthopedic surgeon referral 2022 BHUMI Baum MD, [address] [place], [address], 16:40:32 Procedures injection/ aspiration joint/burs a (PROC) - in office procedure, administer ed by provider 2022 [email or web address] In-Office Order, Internal Use Only DO Not Attach Compendium DO Not Attach Compendium, Do Not Delete/merge, [id number] 09:16:27 Surgeries None recorded. Imaging MRI, shoulder, w/o contrast - GIVE PT A CD OF IMAGES 2022 [facility], [address], [place], [address], 16:27:29 XR, shoulder 2022 [email or web address] [facility], [address], [place], [address], 18:14:11 Medication Orders Kenalog 10 mg/mL suspension for injection 2022 [id number], [address] [place], [place], [id number], 17:10:31 ropivacain e (PF) 5 mg/mL (0.5 %) injection solution [email or web address] [facility][id number], [address] [place], [place], [id number], 12:24:51 Patient TargetsNo targets recorded. Patient InstructionsNo instructions recorded. Reason for Referral Orthopedic Surgeon Referral for Partial thickness rotator cuff tear left shoulder rotator cuff tear Referring Physician: Aric Waters, Orthopedic Surgery, Encounter Date: 06/13/2023 Results Created Date Observation Date Name Description Value Unit Range Abnormal Flag Note LastModifiedBy Organization Detail LastModifiedTime 04/25/20 XR, shoul mary ann No observ ation record ed. Not Available 2022 16:13:53 04/28/20 XR, shoul mary ann No observ ation record ed. [facility] [address], [place], [address], 04/28/2023 16:47:22 06/17/2006/11/2023 MRI, shoul mary ann, w/o contr ast No observ ation record ed. [email or web address] [facility] [place] [address], [place], [address], 06/17/2023 16:27:35 Result Notes None recorded. Problems Name Problem SNOMED Code Status Onset Date Resolution Date Notes Provider Name and Address Organization Details Recorded Time Disorder of shoulder 987765842 Active Not Available [facility] 13:12:37 Radiothera py follow-up 461172194 Active Not Available [facility] 3 13:12:37 Wrist joint pain 172444458 Active Not Available [facility] 3 13:12:37 Partial thickness rotator cuff tear 796649373 Active Not Available [facility] 3 13:12:37 Osteoarthr itis of knee 401879302 Active Not Available [facility] 3 13:12:37 Shoulder joint pain 209256253 Active Not Available [facility] 13:12:37 Enthesopat hy of hip region 79027340 Active Not Available [facility] 3 13:12:38 Knee pain Active Not Available [facility] 3 13:12:38 Enthesopat hy of knee 91039165 Active Not Available [facility] 3 13:12:38 Osteoarthr itis 819552675 Active Not Available [facility] 13:12:38 Disorder of bursa of shoulder region 09177850 Active Not Available [facility] 3 13:12:38 Carpal tunnel syndrome 03748808 Active Not Available [facility] 3 13:12:38 Degenerati ve joint disease of shoulder region 52136731 Active Not Available [facility] 3 13:12:38 Brachial neuritis 68001435 Active Not Available [facility] 3 13:12:38 Skin sensation disturbanc e 25447982 Active Not Available [facility] 3 13:12:38 Neck pain 74010554 Active Not Available [facility] 3 13:12:38 Spinal stenosis in cervical region 15136833 Active Not Available [facility] 3 13:12:38 Pain of left shoulder joint 9592375460349 9109 Active 2022 Maribel barone [employer] 14:17:13 Problem Notes None recorded. Procedures Surgical History Date Name Laterality Status Provider Name and Address Organization Details Recorded Time cholecystectomy completed Maribel Arredondo [employer] 04/28/2023 14:15:04 Shoulder joint surgery completed Maribel Arredondo [employer] 04/28/2023 14:15:18 total knee replacement completed Maribel Arredondo [employer] 04/28/2023 14:15:28 Imaging Results Imaging Date Name Status LastModified by Organiz ation Details LastModified Time 04/25/2023 XR, shoulder completed [email or web address] Information not available 04/25/2023 16:13:53 04/28/2023 XR, shoulder completed [facility] [address], [place], [address], 04/28/2023 16:47:22 06/11/2023 MRI, shoulder, w/o contrast completed [address] [facility] [address] [place] [address], [address], 06/17/2023 16:27:35 Procedure Notes None recorded. Medical Equipment None Reported. Allergies No known drug allergies Medications Name Sig Start Date Stop Date Status Note LastModified by Organization Details LastModified Time cyclobenzap rine 10 mg tablet TAKE 1 TABLET BY MOUTH EVERY 8 HOURS NEEDED. MAY CUT IN HALF IF TOO SEDATING active Not Available Not Available No t Available amoxicillin 500 mg capsule 04/28 completed Not Available Not Available Not Available prednisone 10 mg tablet 04/28 completed Not Available Not Available Not Available doxycycline hyclate 100 mg capsule 04/28 completed Not Available Not Available Not Available azithromyci n 250 mg tablet 04/28 completed Not Available Not Available Not Available benzonatate 200 mg capsule TK ONE C PO TID PRN COU 04/28 completed Not Available Not Available Not Available hydrocodone 5 mg-acetamin ophen 325 mg tablet 04/28 completed Not Available Not Available Not Available prednisone 5 mg tablet 04/28 completed Not Available Not Available Not Available sulindac 150 mg tablet active Not Available Not Available Not Available clopidogrel 75 mg tablet TAKE 1 TABLET BY MOUTH DAILY active Not Available Not Available No t Available ciprofloxac in 500 mg tablet 04/28 completed Not Available Not Available Not Available sulfamethox azole 800 mg-trimetho prim 160 mg tablet 04/28 completed Not Available Not Available Not Available omeprazole 40 mg capsule,del ayed release 04/28 completed Not Available Not Available Not Available tramadol 50 mg tablet 04/28 completed Not Available Not Available Not Available oxycodone-a cetaminophe n 5 mg-325 mg tablet 04/28 completed Not Available Not Available Not Available amoxicillin 875 mg tablet 04/28 completed Not Available Not Available Not Available OneTouch Ultra Test strips USE 1 STRIP TO CHECK GLUCOSE ONCE DAILY active Not Available Not Available No t Available Kenalog 10 mg/mL suspension for injection in office procedure , administe red by provider 2022 active [facility]: [phone] 20 Not Available Not Available Not Available benzonatate 100 mg capsule TK ONE C PO TID 04/28 completed Not Available Not Available Not Available hydrocodone 7.5 mg-acetamin ophen 325 mg tablet 04/28 completed Not Available Not Available Not Available cephalexin 500 mg capsule TK 1 C PO BID 04/28 completed Not Available Not Available Not Available pantoprazol e 40 mg tablet,cade yed release TAKE 1 TABLET BY MOUTH EVERY MORNING active Not Available Not Available No t Available simvastatin 20 mg tablet TK 1 T PO HS 04/28 completed Not Available Not Available Not Available lansoprazol e 30 mg capsule,del ayed release 04/28 completed Not Available Not Available Not Available triamterene 37.5 mg-hydrochl orothiazide 25 mg tablet TAKE 2 TABLETS BY MOUTH DAILY active Not Available Not Available No t Available omeprazole 20 mg capsule,del ayed release 04/28 completed Not Available Not Available Not Available raloxifene 60 mg tablet 04/28 completed Not Available Not Available Not Available montelukast 10 mg tablet 04/28 completed Not Available Not Available Not Available pravastatin 20 mg tablet TK 1 T PO HS 04/28 completed Not Available Not Available Not Available metoprolol succinate ER 25 mg tablet,exte nded release 24 hr TAKE 1 TABLET BY MOUTH TWICE DAILY active Not Available Not Available No t Available fluocinolon e 0.01 % topical solution APPLY IN 3 ROWS TO SCALP TWICE DAILY NEEDED 04/28 completed Not Available Not Available Not Available cefuroxime axetil 500 mg tablet 04/28 completed Not Available Not Available Not Available levofloxaci n 750 mg tablet 04/28 completed Not Available Not Available Not Available methylpredn isolone 4 mg tablets in a dose pack FPD 04/28 completed Not Available Not Available Not Available metformin ER 500 mg tablet,exte nded release 24 hr TAKE 4 TABLETS BY MOUTH EVERY MORNING active Not Available Not Available No t Available amoxicillin 875 mg-potassiu m clavulanate 125 mg tablet TK 1 T PO BID 04/28 completed Not Available Not Available Not Available enoxaparin 30 mg/0.3 mL subcutaneou s syringe 04/28 completed Not Available Not Available Not Available Asprin Ec Low Dose 81 mg tablet,cade yed release Take 1 tablet every day by oral route. active Not Available Not Available No t Available ezetimibe 10 mg tablet TAKE 1 TABLET BY MOUTH DAILY active Not Available Not Available No t Available Vitamin C active Not Available Not Sallie ilable Not Available levothyroxi ne 150mg daily active Not Available Not Available No t Available vitamin E active Not Available Not Sallie ilable Not Available zinc 50mg active Not Available Not Availa ble Not Available Centrum Silver active Not Available Not Available Not Available Vitamin D3 active Not Available Not Av ailable Not Available Tirosint 150 mcg capsule TAKE ONE Capsule BY MOUTH EVERY DAY active Not Available Not Available No t Available B12 active Not Available Not Availa ble Not Available ropivacaine (PF) 5 mg/mL (0.5 %) injection solution in office procedure , administe red by provider 06/13 completed [facility] [phone] Not Available Not Available Not Available Jardiance 25 mg tablet TAKE 1 TABLET BY MOUTH DAILY active Not Available Not Available No t Available OneTouch Ultra Blue Test Strip TEST ONE TIME DAILY UTD active Not Available Not Available No t Available Vitals Date Recorded Body height Body mass index (BMI) Body weight Provider Name and Address Organization Details Last Updated DateTime 04/28/2023 158.75 cm 34.8 kg/m2 93646.76 g Maribel Arredondo [facility] 04/28/2023 14:19:54 Date Recorded Body height Provider Name an d Address Organization Details Last Updated DateTime 06/09/2023 158.75 cm Brooke Carmen [facility] 06/09/2023 14:49:59 Date Recorded Body height Provider Name an d Address Organization Details Last Updated DateTime 06/13/2023 158.75 cm Brooke Carmen [facility] 06/13/2023 12:24:27 Social History Question Answer Notes LastModified by Organizat ion Details LastModified Time Tobacco Smoking Status Never Smoker Maribel Arredondo abisai [facility] 04/28/2023 14:14:49 What Is Your Level Of Alcohol Consumption? None Information not available 04/28/2023 What Was The Date Of Your Most Recent Tobacco Screening? 04/28/2023 [email or web address] Information not available 04/28/2023 Sex: Unknown Functional Status None recorded. Mental Status None recorded. Family History Relationship Description Onset Age of this Age Resolved Age Notes LastModified by Organization Details LastModified Time Sister Family history of malignant neoplasm [email or web address] Not available 04/28 14:14:23 Brother Family history of malignant neoplasm betty Not available 04/28 14:14:23 Father Diabetes mellitus Not available 04/28 14:14:34 Medical History Condition Response DIABETES, TYPE Y CANCER: SPECIFY Y USE OF BLOOD THINNERS Y BLOOD CLOTS Y HYPERTENSION Y Gynecological HistoryNo gynecological history recorded. Obstetrics History GPAL:G 0 P 0 0 0 0 Past Encounters Encounter ID Performer Location Encounter Start Date Encounter Closed Date Diagnosis/Indication Diagnosis SNOMED-CT Code Diagnosis ICD10 Code Diagnosis Note [id number] Aric Waters MD [facility] [address] [place] [address] 04/28/2023 13:30:42 04/28/2023 18:14:11 Pain of left shoulder joint 3314439335 7385144 M25.516 [id number] Aric Waters MD [facility] [address] [place] [address] 06/09/2023 14:46:11 06/10/2023 15:04:26 Pain of left shoulder joint 5475718333 3668336 M25.548 [id number] Aric Waters MD [facility] [address] [place] [address] 06/13/2023 12:16:23 06/16/2023 09:38:23 Partial thickness rotator cuff tear 337420948 M75.102 Health Concerns Section Related Observation LastModified by Organization Detai ls LastModified Time None Recorded Concern Status LastModified by Organization Details LastModified Time None Recorded Advance Directives Directive None Recorded Payers Encounter Date Sequence Insurance Name Policy Number Policy Garcia Covered Member ID Garcia Member ID Guarantor Name 04/28/2023 1 [place] Angelique Cavazos Silvino [id number] Angelique Cavazos Silvino 04/28/2023 2 [place] [id number] Angelique Cavazos Silvino [id number] Angelique Cavazos Silvino 06/09/2023 1 [place] Angelique Cavazos Silvino [id number] Angelique Cavazos Silvino 06/09/2023 2 [place] ([place] [id number] Angelique Cavazos Silvino [id number] Angelique Cavazos Silvino 06/13/2023 1 [place] Angelique Cavazos Silvino [id number] 1 [id number] 31 Angelique Cavazos Silvino 06/13/2023 2 [place] [id number] Angelique Cavazos Silvino [id number] Angelique Cavazos Silvino Notes Date Note Type Note Provider Name and Address Organization Details Recorded Time 04/28/2023 text/html Patient is an 82-year-old female who presents for evaluation of her left shoulder pain. The she has had fairly severe pain over the last couple months left shoulder difficulty with elevation. She has had symptoms off and on for a long time prior to that. She underwent arthroscopic acromioplasty and mini open distal clavicle excision by Dr. Farah in 2013.. She recalls that she had some partial tearing of the rotator cuff that time but not enough to surgically repair. She denies any trauma. Aric Waters MD [address], [place], [place], [address], [facility] 04/28/2023 17:21:41 06/13/2023 text/html patient returns. MRI scan was completed and I reviewed the images I reviewed the radiologist report. She has moderate atrophy and fatty infiltration of the upper subscapularis muscle and there is severe tendinopathy of the subscapularis tendon and a mid substance near full-thickness tear of the upper subscapularis tendon seen on coronal images 2-14 and sagittal image 7-13. There is a split tear of the long head biceps. There is also a small interstitial midsubstance partial-thickness tear the supraspinatus tendon seen on image 3-13 and 14 and sagittal view 7-10 and there is a smaller intrasubstance delamination type tear image 7-11 involving the infraspinatus. Aric Waters MD [address], [place], [address], [employer] 06/15/2023 20:09:13 OBGyn Episode No OBEpisode recorded.
--- OUTSIDE RECORDS SUMMARY | 2024-10-02 12:05 | XMS_ITS ---
Author Organization [facility] Address [address] [place], [place] [address] Care Team Providers Care Dope And Fabric Worker Name Role Phone CHEIKH SCHROEDER Unavailable [phone] Vernacjaime Jennifer Unavailable Unavailable Allergies Allergen (clinical drug ingredient) Drug/Non Drug Allergy documented on EMR Reaction Allergy Type Onset Date Status Tape Unknown Allergy Active REASON FOR VISIT *General care Medications Medication SIG (Take, Route, Frequency, Duration) Notes Start Date End Date Status Pantoprazole Sodium 40 MG Oral for 90 Days Active Metoprolol Succinate ER 25 MG TAKE 1 TABLET BY MOUTH TWICE DAILY Oral for 90 Days Active HYDROcodone-Acetaminophen 5-325 MG Oral for 7 Days Active Clopidogrel Bisulfate 75 MG Oral for 90 Days Active valACYclovir HCl 1 GM TAKE 1 TABLET BY M OUTH EVERY 8 HOURS Oral for 10 Days Active Jardiance 25 MG Oral for 90 Days Active OneTouch Ultra - USE STRIP TO CHECK GLUCOSE ONCE DAILY In Vitro for 90 Days Active Atorvastatin Calcium 20 MG Oral for 90 Days Active Ezetimibe 10 MG Oral for 90 Days Active metFORMIN HCl ER 500 MG TAKE 2 TABLETS B Y MOUTH TWICE DAILY Oral for 90 Days Active Social History Tobacco Use: Social History Observation Description Date Details (start date - stop date) Never Smoker NA - NA Tobacco Control (Standard) Question Answer Notes Tobacco use: Nonsmoker Vital Signs Height 66 in 09/30/2024 Weight 190 lbs 09/30/2024 BMI 30.66 kg/m2 09/30/2024 Height-cm 167.64 cm 09/30/2024 Weight-kg 86.18 kg 09/30/2024 Encounters Encounter Location Date Provider Diagnosis [facility] [address] [place], [place] [id number] 09/30/2024 CHEIKH SCHROEDER Fungal infection of nail B35.1 ; Pain in right toe(s) M79.674 ; Pain in left toe(s) M79.675 ; Unspecified atherosclerosis of tunica-biloxi arteries of extremities, bilateral legs I70.203 ; Atherosclerosis of tunica-biloxi arteries of extremities with intermittent claudication, bilateral legs I70.213 and Onychomycosis B35.1 Assessments Encounter Date Diagnosis (ICD Code) Assessment Notes Treatment Notes Treatment Clinical Notes Section Notes 09/30/2024 Fungal infection of nail (ICD-10 - B35.1) 09/30/2024 Pain in right toe(s) (ICD-10 - M79.674) 09/30/2024 Pain in left toe(s) (ICD-10 - M79.675) 09/30/2024 Unspecified atherosclerosis of tunica-biloxi arteries of extremities, bilateral legs (ICD-10 - I70.203) 09/30/2024 Atherosclerosis of tunica-biloxi arteries of extremities with intermittent claudication, bilateral legs (ICD-10 - I70.213) 09/30/2024 Onychomycosis (ICD-10 - B35.1) Nails 1-5 Bilateral [...] COOPER, 12/16/2024 10:20:00 AM, [address], [facility], [place], [place], [id number], Progress Notes * PAYTON SYKES:1940 (84 yo F)Acc No.[id number]:09/30/2024 Patient: MANFRED BROWN Provider: Jaime Schroeder DPM :1940 A ge:84 Y S ex:Female Date:09/30/2024 Address:[address] [place], [place] [address] Subjective: * Chief Complaints: * 1 . *General care. * HPI: H PI: General care P lalito presents to the office for diabetic foot care. Patient states that their nails are thickened, elongated and painful. Patient states that it is aggravated by shoe gear. Onset is gradual. Patient is taking prescription blood thinners. Date last seen by Dr. Chris was 09/2024. Initials sea. * Medical History: C ancer (type of cancer), Arthritis, Skin cancer, Thyroid disease, Diabetic, Varicose veins, Blood clots. * Surgical History: k nee replacement , partial hysterectomy , gall bladder , shoulder,bilateral . * Social History: T obacco Use: T obacco Control (Standard) T obacco use: N onsmoker * Medications: T aking OneTouch Ultra - Strip USE STRIP TO CHECK GLUCOSE ONCE DAILY In Vitro , Taking Atorvastatin Calcium 20 MG Tablet Oral , Taking Ezetimibe 10 MG Tablet Oral , Taking metFORMIN HCl ER 500 MG Tablet Extended Release 24 Hour TAKE 2 TABLETS BY MOUTH TWICE DAILY Oral , Taking Metoprolol Succinate ER 25 MG Tablet Extended Release 24 Hour TAKE 1 TABLET BY MOUTH TWICE DAILY Oral , Taking HYDROcodone-Acetaminophen 5-325 MG Tablet Oral , Taking Clopidogrel Bisulfate 75 MG Tablet Oral , Taking valACYclovir HCl 1 GM Tablet TAKE 1 TABLET BY MOUTH EVERY 8 HOURS Oral , Taking Pantoprazole Sodium 40 MG Tablet Delayed Release Oral , Taking Jardiance 25 MG Tablet Oral * Allergies: T ape. Objective: * Vitals: [...] M79.675 4 . U nspecified atherosclerosis of tunica-biloxi arteries of extremities, bilateral legs - I70.203 5 . A therosclerosis of tunica-biloxi arteries of extremities with intermittent claudication, bilateral legs - I70.213 6 . O nychomycosis - B35.1 Plan: * Treatment: * Follow Up: 9 weeks * Billing Information: * Visit Code: * Procedure Codes: * Electronic signature of CHEIKH SCHROEDER DPM on 10/02/2024 at 12:05 PM CDT Sign off status: Pending * Provider: Jaime Schroeder DPM Date: 0 09/30/2024 Generated for Jessica morgan/Mik/Yuri on: 0 10/02/2024 [...] Date last seen by Dr. Chris was 09/2024. Initials sea Examination Category Sub-Category Detail Notes [...]
== END 2024-10-02 11:58 | disposition home or self-care (01) ==
PROVIDERS: PCP Family Medicine; Visit Provider Nurse Practitioner Adult Health
DX: S32.009A Unspecified fracture of unspecified lumbar vertebra, initial encounter for closed fracture (principal); X58.XXXA Exposure to other specified factors, initial encounter; M47.896 Other spondylosis, lumbar region
CPT/HCPCS: 72100

== ENCOUNTER 2024-10-05 13:18 | Outpatient (CLI) | payer MEDICARE, SELFPAY ==
[2024-10-05 14:24] LABS: Strep Group A RT-PCR NOT DETECTED (Negative)
--- OUTSIDE RECORDS SUMMARY | 2024-10-05 14:26 | XMS_ITS | Data Portability ---
Author Organization [place] [facility], Main Office Address [address] [place] [address] Care Team Providers Care Flight Attendant/Inflight Manager Name Role Phone NABEEL CARVER Primary Care Provider NABEEL CARVER Referring Provider [phone] LELA LUCAS Primary Care Provider Assessment Encounter [...] more than half the time spent in mtds-py-cifa care. Not available 04/28/2023 16:49:32 06/09/2023 06/09/2023 [...] more than half the time spent in ysuf-qq-rzlr care. Not available 06/09/2023 15:19:58 06/13/2023 06/13/2023 [...] more than half the time spent in bycg-kc-qmve care. I did explain the findings to patient and her daughter in detail. Not available 06/15/2023 20:09:00 Plan of Treatment Reminders Order Date Submit Date Provider Last Modified By Organization Details Last Modified Time Details Appointments None recorded. Lab None recorded. Referral orthopedic surgeon referral 2022 BHUMI Baum MD, [address] [place], [address], 16:40:32 Procedures injection/ aspiration joint/burs a (PROC) - in office procedure, administer ed by provider 2022 [email or web address] In-Office Order, Internal Use Only DO Not Attach Compendium DO Not Attach Compendium, Do Not Delete/merge, [id number] 09:16:27 Surgeries None recorded. Imaging MRI, shoulder, w/o contrast - GIVE PT A CD OF IMAGES 2022 [facility], [address], [place], [address], 16:27:29 XR, shoulder 2022 [email or web address] [facility], [address], [place], [address], 18:14:11 Medication Orders Kenalog 10 mg/mL suspension for injection 2022 [id number], [address] [place], [place], [id number], 17:10:31 ropivacain e (PF) 5 mg/mL (0.5 %) injection solution 2022 [email or web address] [id number], [address] [place], [place], [id number], 12:24:51 Patient TargetsNo targets recorded. Patient InstructionsNo instructions recorded. Reason for Referral Orthopedic Surgeon Referral for Partial thickness rotator cuff tear left shoulder rotator cuff tear Referring Physician: Aric Waters, Orthopedic Surgery, Encounter Date: 06/13/2023 Results Created Date Observation Date Name Description Value Unit Range Abnormal Flag Note LastModifiedBy Organization Detail LastModifiedTime 04/25/20 XR, shoul mary ann No observ ation record ed. [email or web address] Not Available 2022 16:13:53 04/28/20 XR, shoul mary ann No observ ation record ed. [facility] [address], [place], [address], 04/28/2023 16:47:22 06/17/2006/11/2023 MRI, shoul mary ann, w/o contr ast No observ ation record ed. [email or web address] [facility] [address], [place], [address], 06/17/2023 16:27:35 Result Notes None recorded. Problems Name Problem SNOMED Code Status Onset Date Resolution Date Notes Provider Name and Address Organization Details Recorded Time Disorder of shoulder 812960398 Active Not Available [facility] 3 13:12:37 Radiothera py follow-up 037143400 Active Not Available [facility] 3 13:12:37 Wrist joint pain 154148156 Active Not Available [facility] 3 13:12:37 Partial thickness rotator cuff tear 967400568 Active Not Available [facility] 3 13:12:37 Osteoarthr itis of knee 374181256 Active Not Available [facility] 3 13:12:37 Shoulder joint pain 876135891 Active Not Available [facility] 3 13:12:37 Enthesopat hy of hip region 35397522 Active Not Available [facility] 3 13:12:38 Knee pain Active Not Available [facility] 3 13:12:38 Enthesopat hy of knee 26115227 Active Not Available [facility] 3 13:12:38 Osteoarthr itis 793565025 Active Not Available [facility] 3 13:12:38 Disorder of bursa of shoulder region 56365050 Active Not Available [facility] 3 13:12:38 Carpal tunnel syndrome 20138959 Active Not Available [facility] 3 13:12:38 Degenerati ve joint disease of shoulder region 14700735 Active Not Available [facility] 3 13:12:38 Brachial neuritis 16094870 Active Not Available [facility] 3 13:12:38 Skin sensation disturbanc e 42901739 Active Not Available [facility] 3 13:12:38 Neck pain 12196723 Active Not Available [facility] 3 13:12:38 Spinal stenosis in cervical region 02185467 Active Not Available [facility] 3 13:12:38 Pain of left shoulder joint 7028211542350 9109 Active 2022 Maribel barone [employer] 14:17:13 Problem Notes None recorded. Procedures Surgical History Date Name Laterality Status Provider Name and Address Organization Details Recorded Time cholecystectomy completed Maribel Arredondo [employer] 04/28/2023 14:15:04 Shoulder joint surgery completed Maribel Arredondo [facility] 04/28/2023 14:15:18 total knee replacement completed Maribel Arredondo [employer] 04/28/2023 14:15:28 Imaging Results Imaging Date Name Status LastModified by Organiz ation Details LastModified Time 04/25/2023 XR, shoulder completed [email or web address] Information not available 04/25/2023 16:13:53 04/28/2023 XR, shoulder completed [facility] [place] [address], [place], [address], 04/28/2023 16:47:22 06/11/2023 MRI, shoulder, w/o contrast completed [address] [facility] [address] [place] [address], [address], 06/17/2023 16:27:35 Procedure Notes None recorded. Medical [...] , administe red by provider 2022 active [facility]: [phone] Not Available Not Available [...] , administe red by provider 06/13 completed [facility] [phone] Not Available Not Available Not [...] Updated DateTime 04/28/2023 158.75 cm 34.8 kg/m2 21578.76 g Maribel Arredondo [facility] 04/28/2023 14:19:54 Date Recorded Body height Provider Name an d Address Organization Details Last Updated DateTime 06/09/2023 158.75 cm Brooke Carmen [facility] 06/09/2023 14:49:59 Date Recorded Body height Provider Name an d Address Organization Details Last Updated DateTime 06/13/2023 158.75 cm Brooke Carmen [facility] 06/13/2023 12:24:27 Social History Question Answer Notes LastModified by Organizat ion Details LastModified Time Tobacco Smoking Status Never Smoker Maribel Arredondo abisai [facility] 04/28/2023 14:14:49 What Is Your Level Of Alcohol Consumption? None [email or web address] Information not available 04/28/2023 What Was The Date Of Your Most Recent Tobacco Screening? 04/28/2023 [email or web address] Information not available 04/28/2023 Sex: Unknown Functional Status None recorded. Mental Status None recorded. Family History Relationship Description Onset Age of this Age Resolved Age Notes LastModified by Organization Details LastModified Time Sister Family history of malignant neoplasm [email or web address] Not available 04/28 14:14:23 Brother Family history of malignant neoplasm [email or web address] Not available 04/28 14:14:23 Father Diabetes mellitus [email or web address] Not available 04/28 14:14:34 Medical History Condition Response CANCER: SPECIFY Y USE OF BLOOD THINNERS Y BLOOD CLOTS Y DIABETES, TYPE Y HYPERTENSION Y Gynecological HistoryNo gynecological history recorded. Obstetrics History GPAL:G 0 P 0 0 0 0 Past Encounters Encounter ID Performer Location Encounter Start Date Encounter Closed Date Diagnosis/Indication Diagnosis SNOMED-CT Code Diagnosis ICD10 Code Diagnosis Note [id number] Aric Waters MD [facility] [address] [place] [address] 04/28/2023 13:30:42 04/28/2023 18:14:11 Pain of left shoulder joint 2067074679 1010322 M25.296 [id number] Aric Waters MD [facility] [address] [place] [address] 06/09/2023 14:46:11 06/10/2023 15:04:26 Pain of left shoulder joint 1975448611 7787215 M25.771 [id number] Aric Waters MD [facility] [address] [place] [address] 06/13/2023 12:16:23 06/16/2023 09:38:23 Partial thickness rotator cuff tear 803300518 M75.102 Health Concerns Section Related Observation LastModified by Organization Detai ls LastModified Time None Recorded Concern Status LastModified by Organization Details LastModified Time None Recorded Advance Directives Directive None Recorded Payers Encounter Date Sequence Insurance Name Policy Number Policy Garcia Covered Member ID Garcia Member ID Guarantor Name 04/28/2023 1 [place] Angelique Cavazos Silvino [id number] Angelique Cavazos Silvino 04/28/2023 2 [place] [id number] Angelique Cavazos Silvino [id number] Angelique Cavazos Silvino 06/09/2023 1 [place] Angelique Cavazos Silvino [id number] Angelique Cavazos Silvino 06/09/2023 2 [place] [id number] Angelique Cavazos Silvino [id number] Angelique Cavazos Silvino 06/13/2023 1 [place] Angelique Cavazos Silvino [id number] Angelique Cavazos Silvino 06/13/2023 2 [place] [id number] Angelique Cavazos Silvino [id number] Angelique Cavazos Silvino Notes Date Note [...] trauma. Aric Waters MD [address] [employer], [place], [address], [employer] 04/28/2023 17:21:41 06/13/2023 text/html patient returns. MRI [...] Waters MD [address], [place], [address], [employer] 06/15/2023 20:09:13 OBGyn Episode No OBEpisode recorded.
--- OUTSIDE RECORDS SUMMARY | 2024-10-05 14:26 | XMS_ITS | Referral Summary ---
Author Organization [facility] [place] Address [address] [place] [address] Care Team Providers Care Formulation Chemist Name Role Phone Carissa Aragon MD Unavailable [phone] Jennifer Chris DO Primary Care Provider [phone] Encounters Date Type Department Care Team Description 09/09/2024 Telephone [facility] Cardiology [facility] [address] [place] [address] [place] [address] Dwayne Grewal MD Med Management 08/12/2024 4:00 PM FUR WEIGHER Office Visit [facility] Cardiology [facility] [address] [place] [address] [place] [address] Dwayne Grewal MD Stress-induced cardiomyopathy (Primary Dx); Primary hypertension; Nonobstructive atherosclerosis of coronary artery 08/11/2024 2:00 PM FUR WEIGHER Procedure visit [facility] Neurology [address] [place] [phone] Clem Garrido Si, MD Carpal tunnel syndrome [...] 1 capsule (150 mcg total) by mouth director systems before breakfast 1 Active SITagliptin (JANUVIA) 25 [...] 10:52 AM CDT): LHC from 12/2023 noted uowm-ew-prynpoei coronary plaquing in LAD, circumflex and right coronary. No angina. Continue atorvastatin and metoprolol XL. She will discuss with her family doctor and vascular surgery regarding continuing on aspirin or Plavix alone given history lower extremity clots. Assessment & Plan (01/22/2024 9:03 PM CDT): LHC from 12/2023 noted oqfb-pj-mljjuxou coronary plaquing in LAD, circumflex and right [...] drink = 0.6 oz pur e alcohol) [facility] Utilities Answer Date Recorded In the [...] often do you attend chur ch or jainism services? More than 4 times per year 12/31/2023 Do you belong to any clubs o r organizations such as pentecostal groups, unions, fraternal or athletic groups, or [...] any time in the past 12 m [facility], were you homeless or living in [...] on file Legal Sex Female 11:44 PM FUR WEIGHER Gender Identity Not on file Sexual Orientation Not on file Last Filed Vital Signs Vital Sign Reading Time Taken Comments Blood Pressure 149/69 08/12/2024 3:57 PM FUR WEIGHER Pulse 71 08/12/2024 3:57 PM FUR WEIGHER Temperature 36.6 C (97.9 F) 01/01/2024 11:27 AM CDT Respiratory Rate 18 01/01/2024 11:27 AM CDT Oxygen Saturation 97% 08/12/2024 3:57 PM FUR WEIGHER Inhaled Oxygen Concentration - - Weight 74.8 kg (165 lb) 08/12/2024 3:57 PM FUR WEIGHER Height 167.6 cm (5' 6 ) 08/12/2024 3:57 PM FUR WEIGHER Body Mass Index 26.63 08/12/2024 3:57 PM FUR WEIGHER Plan of Treatment Not on file Medical Devices Implanted Type Area Automotive Power Electronics Engineer Device Identifier Shelf Expiration Date Model / Serial / Lot VB Rags Viola Angio-Seal Vip 6fr Closere Device [id number] - [id number] - [id number] Implanted:Qty: 1 on 12/03/2023 by Salvador Mejia MD PhD at [facility] Vascular Closure Device [employer] Viola 07/28/2024 [id number] / [id number] / [id number] [employer] Tornier Aequalis Perform 36mm Lateralize Reverse Shoulder +3mm [id number] - [id number] - [id number] Implanted:Qty: 1 on 12/03/2023 by Marko Baum MD at [facility] Left: Shoulder [employer] 10/12/2028 [id number] / [id number] / [employer] Tornier Aequalis Perform 15mm Press Fit Long Post Shoulder [id number] - [id number] - [id number] Implanted:Qty: 1 on 12/03/2023 by Marko Baum MD at [facility] Left: Shoulder [employer] 05/20/2028 [id number] / [id number] / [employer] Aequalis Perform Od25 Mm Augment 35 D Half Wedge Baseplate Glenoid [id number] - [id number] - [id number] Implanted:Qty: 1 on 12/03/2023 by Marko Baum MD at [facility] Left: Shoulder [employer] 10/16/2028 [id number] / [id number] / [employer] Aequalis Perform Reversed 5mm 38mm Peripheral Glenoid Screw [id number] - [id number] Implanted:Qty: 1 on 12/03/2023 by Marko Baum MD at [facility] Left: Shoulder [employer] [id number] / / [employer] Aequalis Perform Reversed 5mm 14mm Peripheral Glenoid Screw [id number] - [id number] Implanted:Qty: 1 on 12/03/2023 by Marko Baum MD at [facility] Left: Shoulder [employer] [id number] / / [employer] Aequalis Perform Reversed 5mm 18mm Peripheral Glenoid Screw [id number] - [id number] Implanted:Qty: 1 on 12/03/2023 by Marko Baum MD at [facility] Left: Shoulder [employer] [id number] / / [employer] Aequalis Perform Reversed 5mm 22mm Peripheral Glenoid Screw [id number] - [id number] Implanted:Qty: 1 on 12/03/2023 by Marko Baum MD at [facility] Left: Shoulder [employer] [id number] / / [employer] Insert Humeral 10 Degree Reverse Size 1/2 +0 Perform 36mm Combination [id number] - [id number] - [id number] Implanted:Qty: 1 on 12/03/2023 by Marko Baum MD at [facility] Left: Shoulder [employer] 12/28/2027 [id number] / [id number] / [employer] Tray Stem Humeral Shoulder Reverse Aequalis Perform [id number] - [id number] - [id number] Implanted:Qty: 1 on 12/03/2023 by Marko Baum MD at [facility] Left: Shoulder [employer] 09/11/2027 [id number] / [id number] / Procedures Procedure Name Priority Date/Time Associated Diagnosis Comments EMG/NCV Routine 08/11/2024 2:16 PM FUR WEIGHER Paresthesia BASIC METABOLIC PANEL Routine 01/22/2024 12:55 PM CDT Stress-induced cardiomyopathy LIPID PANEL Routine 01/01/2024 10:17 AM CDT HEMOGLOBIN A1C Routine 11/17/2023 11:30 AM CDT Primary osteoarthritis of left shoulder Preoperative testing History of diabetes mellitus from Last 3 Months or Most Recently Relevant to Health Maintenance Results * EMG/NCV (08/11/2024 2:16 PM FUR WEIGHER) Anatomical Region Laterality Modality Other Narrative 08/11/2024 2:16 PM FUR WEIGHER Clem Garrido Si, MD 08/12/2024 9:43 AM [...] last revised on 2018. Testing performed by: [address] [address] Triglycerides 189(H) <=149 mg/dL [facility] Comment: Interpretive [...] last revised on 2018. Testing performed by: [address] [address] HDL 27(L) >=40 mg/dL [facility] Comment: Interpretive [...] last revised on 2018. Testing performed by: [address] [address] LDL, calculated 26 <=129 mg/dL [facility] Comment: [...] last revised on 2018. Testing performed by: [address] [address] Non-HDL Cholesterol 64 mg/dL [facility] Comment: Interpretive [...] last revised on 2018. Testing performed by: [address] [address] Chol/HDL ratio 3 [facility] Comment:Testing performed by : [address] [address] Blood 01/01/2024 10:1 7 AM CDT 01/01/2024 10:49 AM CDT Francisco Phipps MD LAB BLOOD ORDERABLES nal Result [facility] [address] [facility] Department [place] [address] * (ABNORMAL) Hemoglobin A1c (11/17/2023 11:30 AM CDT) Hgb A1C 8.1(H) 4.0 - 5.6 % Estimated Average Glucose 186 mg/dL [facility] Comment: The ADA recommends reporting an estimated [...] Final Result Performing Organization Address City/State/ZIP Co wa Phone Number [facility] [place] [address] from Last 3 Months or Most Recently Relevant to Health Maintenance Insurance [facility]IC[facility] MEDICARE [facility] MEDICARE SUPPLEMENT Advance Directives For more information, please contact: [phone] * Full Code (Latest Code Status on [...] 4:41 PM 04/25/2021 9:09 PM Care Teams Formulation Chemist Relationship Specialty Start Date End Date Jennifer Chris DO PCP - General Family Medicine 08/05/22 Carissa Aragon MD Surgeon Surgical Oncology 07/11/22
--- OUTSIDE RECORDS SUMMARY | 2024-10-05 14:26 | XMS_ITS ---
Author Organization [facility] Address [address] [place], [place] [id number] Care Team Providers Care Lacquer Dipping Machine Operator Name Role Phone MANGO CHEIKH Unavailable [phone] Vernace, Jennifer Unavailable Unavailable REASON FOR VISIT *General care Encounters Encounter Location Date Provider Diagnosis [facility] [place] [address] [place], [place] [id number] 04/01/2024 CHEIKH SCHROEDER Fungal infection of nail B35.1 ; Pain in right toe(s) M79.674 ; Pain in left toe(s) M79.675 ; Unspecified atherosclerosis of [place] arteries of extremities, bilateral legs I70.203 ; Atherosclerosis of [place] arteries of extremities with intermittent claudication, bilateral legs I70.213 and Onychomycosis B35.1 Assessments Encounter Date Diagnosis (ICD Code) Assessment Notes Treatment Notes Treatment Clinical Notes Section Notes 04/01/2024 Fungal infection of nail (ICD-10 - B35.1) 04/01/2024 Pain in right toe(s) (ICD-10 - M79.674) 04/01/2024 Pain in left toe(s) (ICD-10 - M79.675) 04/01/2024 Unspecified atherosclerosis of [place] arteries of extremities, bilateral legs (ICD-10 - I70.203) 04/01/2024 Atherosclerosis of [place] arteries of extremities with intermittent claudication, bilateral [...] COOPER, 12/16/2024 10:20:00 AM, [address], [address], [id number], Progress Notes * MANFRED SYKESDOB:1940 (83 yo F)Acc No.[id number]:04/01/2024 Patient: MANFRED BROWN Provider: Jaime Schroeder DPM :1940 A ge:83 Y S ex:Female Date:04/01/2024 Address:[address] [place] [address] Subjective: * Chief Complaints: * * General [...] M79.675 4 . U nspecified atherosclerosis of [place] arteries of extremities, bilateral legs - I70.203 5 . A therosclerosis of [place] arteries of extremities with intermittent claudication, bilateral legs - I70.213 6 . O nychomycosis - B35.1 Plan: * Treatment: * Procedure Codes: 1 1721 DEBRIDE NAIL, 6 OR MORE, Modifiers: Q8 * Follow Up: 9 weeks * Billing Information: * Visit Code: * Procedure Codes: 63124 DEBRIDE NAIL, 6 OR MORE. Modifiers: Q8 * Sign off status: Completed true * Provider: Jaime Schroeder DPM Date: 0 04/01/2024 Generated for Jessica morgan/Mik/Yuri on: 0 10/05/2024 02:26 PM CDT History and Physical Notes * [...]
--- OUTSIDE RECORDS SUMMARY | 2024-10-05 14:26 | XMS_ITS ---
Author Organization [facility] Address [address] [place], [place] [id number] Care Team Providers Care Practice Performance Manager Name Role Phone CHEIKH SCHROEDER Unavailable [phone] Vernace, Jennifer Unavailable Unavailable Allergies Allergen (clinical [...] Location Date Provider Diagnosis [facility] [place] [address] [place], [place] [id number] 06/10/2024 CHEIKH SCHROEDER Fungal infection of nail B35.1 ; Pain in right toe(s) M79.674 ; Pain in left toe(s) M79.675 ; Unspecified atherosclerosis of [place] arteries of extremities, bilateral legs I70.203 ; Atherosclerosis of [place] arteries of extremities with intermittent claudication, bilateral legs I70.213 and Onychomycosis B35.1 Assessments Encounter Date Diagnosis (ICD Code) Assessment Notes Treatment Notes Treatment Clinical Notes Section Notes 06/10/2024 Fungal infection of nail (ICD-10 - B35.1) 06/10/2024 Pain in right toe(s) (ICD-10 - M79.674) 06/10/2024 Pain in left toe(s) (ICD-10 - M79.675) 06/10/2024 Unspecified atherosclerosis of [place] arteries of extremities, bilateral legs (ICD-10 - I70.203) 06/10/2024 Atherosclerosis of [place] arteries of extremities with intermittent claudication, bilateral [...] COOPER, 12/16/2024 10:20:00 AM, [address], [address], [id number], Progress Notes * MANFRED SYKESDOB:1940 (83 yo F)Acc No.[id number]:06/10/2024 Patient: MANFRED BROWN Provider: Jaime Schroeder DPM :1940 A ge:83 Y S ex:Female Date:06/10/2024 Address:[address] [place] [address] Subjective: * Chief Complaints: * * General [...] M79.675 4 . U nspecified atherosclerosis of [place] arteries of extremities, bilateral legs - I70.203 5 . A therosclerosis of [place] arteries of extremities with intermittent claudication, bilateral legs - I70.213 6 . O nychomycosis - B35.1 Plan: * Treatment: * Procedure Codes: 1 1721 DEBRIDE NAIL, 6 OR MORE, Modifiers: Q8 * Follow Up: 9 weeks * Billing Information: * Visit Code: * Procedure Codes: 38068 DEBRIDE NAIL, 6 OR MORE. Modifiers: Q8 * EL LINER Sign off status: Completed true * Provider: Jaime Schroeder DPM Date: 08/11/2023 Generated for Jessica morgan/Mik/Yuri on: 0 10/05/2024 [...]
--- OUTSIDE RECORDS SUMMARY | 2024-10-05 14:26 | XMS_ITS | Encounter Summary ---
Author Organization [facility] Address [address] [place] [address] Care Team Providers Care Physical Chemistry Professor Name Role Phone Carissa Aragon MD Unavailable [phone] Jennifer Chris DO Primary Care Provider [phone] Bailey KwonW Unavailable [phone] Encounter Details Date Type Department Care Team (Late st Contact Info) Description 01/01/2024 Documentation [facility] [address] [facility] [place] [address] Madelyn Galarza LPN Social History Tobacco Use Types Packs/Day Years Used Date Smoking Tobacco: Former Cigarettes 2 50 1 954 - 2004 Passive Smoke Exposure: Past Smokeless Tobacco: Never Alcohol Use Standard Drinks/Week Comments No 0 (1 standard drink = 0.6 oz pur e alcohol) [facility] Utilities Answer Date Recorded In the past 12 months has [employer], gas, oil, or water [employer] threatened to shut off services in your [...] How often do you attend chur or caodaism services? More than 4 times per year 12/31/2023 Do you belong to any clubs o r organizations such as quaker groups, unions, fraternal or athletic groups, or [...] any time in the past 12 m [facility], were you homeless or living in a senior care (including now)? No 12/31/2023 Personal Safety Answer Date Recorded Have you ever been in or are you currently in a harmful physical or emotional relationship or is someone making you feel afraid or unsafe? Denies 12/30/2023 Comments No Sex and Gender Information Value Date Recorded Sex Assigned at Not on file Legal Sex Female 11:44 PM RUG WEAVER Gender Identity Not on file Sexual Orientation Not on file documented as of this encounter Plan of Treatment Not on file documented as of this encounter Visit Diagnoses Not on filedocumented in this encounter Care Teams Physical Chemistry Professor Relationship Specialty Start Date End Date Jennifer Chris DO PCP - General Family Medicine 08/05/22 Carissa Aragon MD Surgeon Surgical Oncology 07/11/22 Bailey Kwon, MINNIE [address] [facility] ([facility] Mailstop [phone] [place] [address] [facility] 12/09/23 01/05/24 documented as of this encounter
--- OUTSIDE RECORDS SUMMARY | 2024-10-05 14:27 | XMS_ITS | Clinical Summary ---
Author Organization [facility] [place] Address [address] [place] [address] Care Team Providers Care Course Developer Name Role Phone Carissa Aragon MD Unavailable [phone] Jennifer Chris DO Primary Care Provider [phone] Allergies Active Allergy Reactions Criticality Noted Date [...] 1 capsule (150 mcg total) by mouth tracer lathe set up operator before breakfast 1 Active SITagliptin (JANUVIA) 25 [...] 10:52 AM CDT): LHC from 12/2023 noted rwfc-sx-nsemqpuv coronary plaquing in LAD, circumflex and right coronary. No angina. Continue atorvastatin and metoprolol XL. She will discuss with her family doctor and vascular surgery regarding continuing on aspirin or Plavix alone given history lower extremity clots. Assessment & Plan (01/22/2024 9:03 PM CDT): LHC from 12/2023 noted nhgd-ag-yrdktonh coronary plaquing in LAD, circumflex and right [...] Type Department Care Team Description 09/09/2024 Telephone [facility] [address] [place] [address] 8th [place] [address] [place] [address] Dwayne Grewal MD Med Management 08/12/2024 4:00 PM STOPPER MAKER Office Visit [facility] [address] [place] [address] 8th [place] [address] [place] [address] Dwayne Grewal MD Stress-induced cardiomyopathy (Primary Dx); Primary hypertension; Nonobstructive atherosclerosis of coronary artery 08/11/2024 2:00 PM STOPPER MAKER Procedure visit [facility] Neurology [address] [place] [phone] Clem Garrido Si, MD Carpal tunnel [...] drink = 0.6 oz pur e alcohol) [facility] Utilities Answer Date Recorded In the [...] often do you attend chur ch or jain services? More than 4 times per year 12/31/2023 Do you belong to any clubs o r organizations such as amish groups, unions, fraternal or athletic groups, or [...] any time in the past 12 m [facility], were you homeless or living in a assisted (including now)? No 12/31/2023 Personal Safety Answer Date Recorded Have you ever been in or are you currently in a harmful physical or emotional relationship or is someone making you feel afraid or unsafe? Denies 12/30/2023 Comments No Sex and Gender Information Value Date Recorded Sex Assigned at Not on file Legal Sex Female 11:44 PM STOPPER MAKER Gender Identity Not on file Sexual Orientation Not on file Obstetrics History Last Filed Vital Signs Vital Sign Reading Time Taken Comments Blood Pressure 149/69 08/12/2024 3:57 PM STOPPER MAKER Pulse 71 08/12/2024 3:57 PM STOPPER MAKER Temperature 36.6 C (97.9 F) 01/01/2024 11:27 AM CDT Respiratory Rate 18 01/01/2024 11:27 AM CDT Oxygen Saturation 97% 08/12/2024 3:57 PM STOPPER MAKER Inhaled Oxygen Concentration - - Weight 74.8 kg (165 lb) 08/12/2024 3:57 PM STOPPER MAKER Height 167.6 cm (5' 6 ) 08/12/2024 3:57 PM STOPPER MAKER Body Mass Index 26.63 08/12/2024 3:57 PM STOPPER MAKER Plan of Treatment Health Maintenance Due Date [...] history exists Medical Devices Implanted Type Area Geospatial Intelligence Analyst Device Identifier Shelf Expiration Date Model / Serial / Lot [employer]ola Angio-Seal Vip 6fr Closere Device [id number] - [id number] - [id number] Implanted:Qty: 1 on 12/03/2023 by Salvador Mejia MD PhD at [facility] Vascular Closure Device [employer] Vi[employer] 07/28/2024 [id number] / [id number] / [id number] Tornier Aequalis Perform 36mm Lateralize Reverse Shoulder +3mm [id number] - [id number] - [id number] Implanted:Qty: 1 on 12/03/2023 by Marko Baum MD at [facility] Left: Shoulder [employer] 10/12/2028 [id number] / [id number] / [employer] Tornier Aequalis Perform 15mm Press Fit Long Post Shoulder Ctq124 - [id number] - [id number] Implanted:Qty: 1 on 12/03/2023 by Marko Baum MD at [facility] Left: Shoulder [employer] 05/20/2028 [id number] / [id number] / [employer] Aequalis Perform Od25 Mm Augment 35 D Half Wedge Baseplate Glenoid [id number] - [id number] - [id number] Implanted:Qty: 1 on 12/03/2023 by Marko Baum MD at [facility] Left: Shoulder [employer] 10/16/2028 [id number] / [id number] / [employer] Aequalis Perform Reversed 5mm 38mm Peripheral Glenoid Screw Cbi077 - [id number] Implanted:Qty: 1 on 12/03/2023 by Marko Baum MD at [facility] Left: Shoulder [employer] [id number] / / [employer] Aequalis Perform Reversed 5mm 14mm Peripheral Glenoid Screw [id number] - [id number] Implanted:Qty: 1 on 12/03/2023 by Marko Baum MD at [facility] Left: Shoulder [employer] [id number] / / [employer] Aequalis Perform Reversed 5mm 18mm Peripheral Glenoid Screw Vch006 - [id number] Implanted:Qty: 1 on 12/03/2023 by Marko Baum MD at [facility] Left: Shoulder [employer] [id number] / / [employer] Aequalis Perform Reversed 5mm 22mm Peripheral Glenoid Screw Cmr912 - [id number] Implanted:Qty: 1 on 12/03/2023 by Marko Baum MD at [facility] Left: Shoulder [employer] [id number] / / [employer] Insert Humeral 10 Degree Reverse Size 1/2 +0 Perform 36mm Combination [id number] - [id number] - [id number] Implanted:Qty: 1 on 12/03/2023 by Marko Baum MD at [facility] Left: Shoulder [employer] 12/28/2027 [id number] / [id number] / [employer] Tray Stem Humeral Shoulder Reverse Aequalis Perform [id number] - [id number] - [id number] Implanted:Qty: 1 on 12/03/2023 by Marko Baum MD at [facility] Left: Shoulder [employer] 09/11/2027 [id number] / [id number] / Procedures Procedure Name Priority Date/Time Associated Diagnosis Comments EMG/NCV Routine 08/11/2024 2:16 PM STOPPER MAKER Paresthesia BASIC METABOLIC PANEL Routine 01/22/2024 12:55 PM CDT Stress-induced cardiomyopathy LIPID PANEL Routine 01/01/2024 10:17 AM CDT HEMOGLOBIN A1C Routine 11/17/2023 11:30 AM CDT Primary osteoarthritis of left shoulder Preoperative testing History of diabetes mellitus from Last 3 Months or Most Recently Relevant to Health Maintenance Results * EMG/NCV (08/11/2024 2:16 PM STOPPER MAKER) Anatomical Region Laterality Modality Other Narrative 08/11/2024 2:16 PM STOPPER MAKER Clem Garrido Si, MD 08/12/2024 9:43 AM [...] 01/22/2024 2:11 PM CDT us Rhett Suazo MOLD MAKING PLAST[employer] SHEETS SUPERVISOR LAB BLOOD ORDERABLES Fin al Result CASTRO [...] last revised on 2018. Testing performed by: [facility], [address] [place] [address]., [address] Triglycerides 189(H) <=149 mg/dL [facility] [place] Comment: [...] last revised on 2018. Testing performed by: [address] [address] HDL 27(L) >=40 mg/dL [facility] Comment: Interpretive [...] last revised on 2018. Testing performed by: [address] [address] LDL, calculated 26 <=129 mg/dL [facility] Comment: [...] last revised on 2018. Testing performed by: [address] [address] Non-HDL Cholesterol 64 mg/dL [facility] Comment: Interpretive [...] last revised on 2018. Testing performed by: [address] [address] Chol/HDL ratio 3 [facility] Comment:Testing performed by : [address] [address] Blood 01/01/2024 10:1 7 AM CDT 01/01/2024 10:49 AM CDT Francisco Phipps MD LAB BLOOD ORDERABLES Fi nal Result Performing Organization Address City/[facility]/ZIP Co de Phone Number [facility] [address] [facility] Department [place] [address] * (ABNORMAL) Hemoglobin A1c (11/17/2023 11:30 AM CDT) [facility] Hgb A1C 8.1(H) 4.0 - 5.6 % Estimated Average Glucose 186 mg/dL [facility] Comment: The ADA recommends reporting an estimated [...] Baum MD LAB BLOOD ORDERABLES Final Result [facility] Department [place] [address] from Last 3 Months or Most Recently Relevant to Health Maintenance Insurance MEDICARE [employer] MEDICARE BLUE CROSS MEDICARE SUPPLEMENT Advance Directives For more information, please contact: [phone] * Full Code (Latest Code Status on [...] 4:41 PM 04/25/2021 9:09 PM Care Teams Course Developer Relationship Specialty Start Date End Date Jennifer Chris DO PCP - General Family Medicine 08/05/22 Carissa Aragon MD Surgeon Surgical Oncology 07/11/22
--- OUTSIDE RECORDS SUMMARY | 2024-10-05 14:27 | XMS_ITS | Patient Health Record ---
Author Organization [facility] Address [address] [place], [place] [id number] Care Team Providers Care Valve Repairer Name Role Phone CHEIKH COBIAN Unavailable [phone] Jennifer Chris Unavailable Unavailable Allergies Allergen (clinical drug ingredient) Drug/Non Drug Allergy documented on EMR Reaction Allergy Type Onset Date Status Tape Unknown Allergy Active Reason For Referral No Information Medications Medication SIG (Take, Route, Frequency, Duration) Notes Start Date End Date Status Pantoprazole Sodium 40 MG Oral for 90 Days Active Jardiance 25 MG Oral for 90 Days Active OneTouch Ultra - USE STRIP TO CHECK GLUCOSE ONCE DAILY In Vitro for 90 Days Active Atorvastatin Calcium 20 MG Oral for 90 Days Active Ezetimibe 10 MG Oral for 90 Days Active metFORMIN HCl ER 500 MG TAKE 2 TABLETS B Y MOUTH TWICE DAILY Oral for 90 Days Active Metoprolol Succinate ER 25 MG TAKE 1 TABLET BY MOUTH TWICE DAILY Oral for 90 Days Active HYDROcodone-Acetaminophen 5-325 MG Oral for 7 Days Active Clopidogrel Bisulfate 75 MG Oral for 90 Days Active valACYclovir HCl 1 GM TAKE 1 TABLET BY M OUTH EVERY 8 HOURS Oral for 10 Days Active Immunizations Vaccine Route Administration Date Status Comme nts Influenza, high dose seasonal Unknown 04/05/2023 Admini stered Social History Tobacco Use: Social History Observation Description Date Details (start date - stop date) Never Smoker NA - NA Tobacco Control (Standard) Question Answer Notes Tobacco use: Nonsmoker Vital Signs Height-cm 167.64 cm 09/30/2024 Weight-kg 86.18 kg 09/30/2024 Height 66 in 09/30/2024 Weight 190 lbs 09/30/2024 BMI 30.66 kg/m2 09/30/2024 Encounters Encounter Location Date Provider Diagnosis [facility] [place] [address] [place] [id number] 09/30/2024 CHEIKH [place] Fungal infection of nail B35.1 ; Pain in right toe(s) M79.674 ; Pain in left toe(s) M79.675 ; Unspecified atherosclerosis of [place] arteries of extremities, bilateral legs I70.203 ; Atherosclerosis of [place] arteries of extremities with intermittent claudication, bilateral legs I70.213 and Onychomycosis B35.1 [facility] [place] [address] [place] [id number] 01/29/2024 CHEIKH [place] Fungal infection of nail B35.1 ; Pain in right toe(s) M79.674 ; Pain in left toe(s) M79.675 and Unspecified atherosclerosis of [place] arteries of extremities, bilateral legs I70.203 [facility] [place] [address] [place] [id number] 04/01/2024 CHEIKH [place] Fungal infection of nail B35.1 ; Pain in right toe(s) M79.674 ; Pain in left toe(s) M79.675 ; Unspecified atherosclerosis of [place] arteries of extremities, bilateral legs I70.203 ; Atherosclerosis of [place] arteries of extremities with intermittent claudication, bilateral legs I70.213 and Onychomycosis B35.1 [facility] [place] [address] [place] [id number] 06/10/2024 CHEIKH [place] Fungal infection of nail B35.1 ; Pain in right toe(s) M79.674 ; Pain in left toe(s) M79.675 ; Unspecified atherosclerosis of [place] arteries of extremities, bilateral legs I70.203 ; Atherosclerosis of [place] arteries of extremities with intermittent claudication, bilateral legs I70.213 and Onychomycosis B35.1 Assessments Encounter Date Diagnosis (ICD Code) Assessment Notes Treatment Notes Treatment Clinical Notes Section Notes 01/29/2024 Pain in right toe(s) (ICD-10 - M79.674) 01/29/2024 Fungal infection of nail (ICD-10 - B35.1) 04/01/2024 Fungal infection of nail (ICD-10 - B35.1) 06/10/2024 Fungal infection of nail (ICD-10 - B35.1) 09/30/2024 Fungal infection of nail (ICD-10 - B35.1) 09/30/2024 Pain in right toe(s) (ICD-10 - M79.674) 06/10/2024 Pain in right toe(s) (ICD-10 - M79.674) 04/01/2024 Pain in right toe(s) (ICD-10 - M79.674) 01/29/2024 Pain in left toe(s) (ICD-10 - M79.675) 01/29/2024 Unspecified atherosclerosis of [place] arteries of extremities, bilateral legs (ICD-10 - I70.203) 04/01/2024 Pain in left toe(s) (ICD-10 - M79.675) 06/10/2024 Pain in left toe(s) (ICD-10 - M79.675) 09/30/2024 Pain in left toe(s) (ICD-10 - M79.675) 09/30/2024 Unspecified atherosclerosis of [place] arteries of extremities, bilateral legs (ICD-10 - I70.203) 06/10/2024 Unspecified atherosclerosis of [place] arteries of extremities, bilateral legs (ICD-10 - I70.203) 04/01/2024 Unspecified atherosclerosis of [place] arteries of extremities, bilateral legs (ICD-10 - I70.203) 04/01/2024 Atherosclerosis of [place] arteries of extremities with intermittent claudication, bilateral legs (ICD-10 - I70.213) 06/10/2024 Atherosclerosis of [place] arteries of extremities with intermittent claudication, bilateral legs (ICD-10 - I70.213) 09/30/2024 Atherosclerosis of [place] arteries of extremities with intermittent claudication, bilateral legs (ICD-10 - I70.213) 06/10/2024 Onychomycosis (ICD-10 - B35.1) Nails 1-5 Bilateral were debrided extensively with nail nippers and emery board, reducing length and girth to pink healthy tissue with any subungual debris and necrotic tissue removed 04/01/2024 Onychomycosis (ICD-10 - B35.1) Nails 1-5 Bilateral were debrided extensively with nail nippers and emery board, reducing length and girth to pink healthy tissue with any subungual debris and necrotic tissue removed 09/30/2024 Onychomycosis (ICD-10 - B35.1) Nails 1-5 Bilateral were debrided extensively with nail nippers and emery board, reducing length and girth to pink healthy tissue with any subungual debris and necrotic tissue removed Plan Of Treatment Next Appt Details Provider Name:CHEIKH Mariano MINESH COOPER, 12/16/2024 10:20:00 AM, [address], [facility], [place], [place], [phone], Insurance Providers Payer Name Payer Address Payer Phone Subscriber Number Group Number Insured Name Patient Relationship to Insured Coverage Start Date Coverage End Date Medicare Part B [place] [address] [place] [address] [id number] MANFRED SYKES Self - patient is the insured 4 [facility] ([facility]) ATTN CLAIMS [address] [place] [address] [id number] MANFRED SYKES Self - patient is the insured Medical (General) History Medical History History ICD Code Cancer (type of cancer) Arthritis skin cancer thyroid disease Diabetic varicose veins Blood clots Surgical History Surgery Date(Month/Year) knee replacement partial hysterectomy gall bladder shoulder,bilateral
--- OUTSIDE RECORDS SUMMARY | 2024-10-05 14:27 | XMS_ITS ---
Author Organization [facility] Address [address] [place], [place] [id number] Care Team Providers Care Crewman [employer]oured Person[employer] [id number] Name Role Phone CHEIKH SCHROEDER Unavailable [phone] Vernacjaime Jennifer Unavailable Unavailable Allergies Allergen (clinical [...] [facility] [address] [place], [place] [id number] 09/30/2024 CHEIKH SCHROEDER Fungal infection of nail B35.1 ; Pain in right toe(s) M79.674 ; Pain in left toe(s) M79.675 ; Unspecified atherosclerosis of mechoopda arteries of extremities, bilateral legs I70.203 ; Atherosclerosis of mechoopda arteries of extremities with intermittent claudication, bilateral legs I70.213 and Onychomycosis B35.1 Assessments Encounter Date Diagnosis (ICD Code) Assessment Notes Treatment Notes Treatment Clinical Notes Section Notes 09/30/2024 Fungal infection of nail (ICD-10 - B35.1) 09/30/2024 Pain in right toe(s) (ICD-10 - M79.674) 09/30/2024 Pain in left toe(s) (ICD-10 - M79.675) 09/30/2024 Unspecified atherosclerosis of mechoopda arteries of extremities, bilateral legs (ICD-10 - I70.203) 09/30/2024 Atherosclerosis of mechoopda arteries of extremities with intermittent claudication, bilateral [...] COOPER, 12/16/2024 10:20:00 AM, [address], [facility], [place], [place], [id number], Progress Notes * PAYTON SYKES:1940 (84 yo F)Acc No.[id number]:09/30/2024 Patient: MANFRED BROWN Provider: Jaime Schroeder DPM :1940 A ge:84 Y S ex:Female Date:09/30/2024 Address:[address] [place], [place] [address] [id number] Subjective: * Chief Complaints: * 1 . [...] M79.675 4 . U nspecified atherosclerosis of mechoopda arteries of extremities, bilateral legs - I70.203 5 . A therosclerosis of mechoopda arteries of extremities with intermittent claudication, bilateral legs - I70.213 6 . O nychomycosis - B35.1 Plan: * Treatment: * Follow Up: 9 weeks * Billing Information: * Visit Code: * Procedure Codes: * Electronic signature of CHEIKH SCHROEDER DPM on 10/05/2024 at 02:26 PM CDT Sign off status: Pending * Provider: Jaime Schroeder DPM Date: 0 09/30/2024 Generated for Jessica morgan/Mik/Yuri on: 0 10/05/2024 [...]
[2024-10-05 14:35] LABS: Influenza A QL RT-PCR Negative (Negative); Influenza B QL RT-PCR Negative (Negative); RSV RNA, RT-PCR Negative (Negative); SARS-CoV-2 RNA PCR Negative (Negative)
== END 2024-10-05 13:19 | disposition home or self-care (01) ==
LOC: ANHLAB 13:19
PROVIDERS: PCP Nurse Practitioner; Visit Provider Nurse Practitioner
DX: R50.9 Fever, unspecified (principal); J02.9 Acute pharyngitis, unspecified; Z20.822 Contact with and (suspected) exposure to COVID-19
CPT/HCPCS: 87637; 87651

== ENCOUNTER 2024-10-27 09:17 | Outpatient (CLI) | payer MEDICARE, SELFPAY ==
--- NOTE | ~2024-10-27 | XR_ITS ---
Lumbosacral Spine: AP and lateral views Clinical History: Pain COMPARISON: 10/02/2024 Findings: The normal lordotic curve is maintained. Stable 5 mm anterolisthesis of L4 over L5. Stable compression deformity of L2. Stable 4 mm anterolisthesis of L3 over L4. Moderate facet arthropathy pr esent. The sacroiliac joints are normally outlined. Impression: Stable compression deformity of L2. Stable 4 mm anterolisthesis of L3 over L4. Stable 5 mm anterolisthesis of L4 over L5. Degenerative change, as above. Reviewed, dictated and finalized at location . Impression: Stable compression deformity of L2. Stable 4 mm anterolisthesis of L3 over L4. Stable 5 mm anterolisthesis of L4 ov er L5. Degenerative change, as above.
== END 2024-10-27 09:18 | disposition home or self-care (01) ==
LOC: GOSHIMG 09:18
PROVIDERS: PCP Nurse Practitioner; Visit Provider Nurse Practitioner Adult Health
DX: S32.020A Wedge compression fracture of second lumbar vertebra, initial encounter for closed fracture (principal); X58.XXXA Exposure to other specified factors, initial encounter; M43.16 Spondylolisthesis, lumbar region; M47.816 Spondylosis without myelopathy or radiculopathy, lumbar region
CPT/HCPCS: 72100

== ENCOUNTER 2025-01-03 09:11 | Outpatient (CLI) | payer MEDICARE, SELFPAY ==
--- NOTE | ~2025-01-03 | MM_ITS ---
EXAMINATION: MM screening suresh BI w dora HISTORY: Screening mammogram TECHNIQUE: Craniocaudal and mediolateral oblique 3-D tomosynthesis images were obtained and synthetic 2-D images were generated. CAD analysis was submitted and interpreted. COMPARISON: 06/24/2014, 11/24/2013 BREAST PARENCHYMAL COMPOSITION:Not Dense. There are scattered areas of fibroglandular density. FINDINGS: No suspicious mass, calcification, or architectural distortion are identified in either jose l ast to suggest malignancy. There has been no suspicious interval change. IMPRESSION: No mammographic evidence of malignancy. Recommend routine screening mammography in one year. BI-RADS Category 1: Negative Reviewed, dictated and finalized at location .
--- NOTE | ~2025-01-03 | DEXA_ITS ---
Bone Density Report Name: MANFRED SYKES Age: 84 Sex: Female Ethnicity: White Date of : 1940 Indication: postmenopausal; screening for osteoporosis; height loss; history of glucocorticoids; cancer; asthma or emphysema; hysterectomy; Referring Provider: BERHANE DE LA CRUZ Study: Bone densitometry was performed. Exam Date: January 03, 2025 Accession number: [id number] Bone Density: Region BMD T-score Z-score Classification AP Spine(L1-L4) 1.084 0.3 3.2 Normal Femoral Neck (Left) 0.863 0.1 2.7 Normal Total Hip (Left) 1.065 1.0 3.3 Normal Femoral Neck (Right) 0.807 -0.4 2.1 Normal Total Hip (Right) 1.056 0.9 3.3 Normal Total Hip Mean 1.060 1.0 3.3 Normal World Health Organization criteria for BMD impression classify patients as: Normal (T-score at or above -1.0), Osteopenia (T-score between -1.0 and -2.5), or Osteoporosis (T-score at or below -2.5). 10-year Fracture Risk: FRAX not reported because: All T-scores for Spine Total, Hip Total, Femoral Neck at or above -1.0 Previous Exams: Region Exam Age BMD T-score BMD Change BMD Change Date g/cm2 vs Baseline vs Previous AP Spine (L1-L4) 01/03/2025 84 1.084 0.3 0.063 (6.2%)* 0.097 (9.8%)* 10/22/2023 83 0.988 -0.5 -0.034 (-3.3%) -0.034 (-3.3%) 10/16/2016 76 1.021 -0.2 Total Hip(Left) 01/03/2025 84 1.065 1.0 -0.062 (-5.5%) -0.087 (-7.6%) 10/22/2023 83 1.152 1.7 0.025 (2.3%) 0.025 (2.3%) 10/16/2016 76 1.127 1.5 Total Hip(Right) 01/03/2025 84 1.056 0.9 -0.039 (-3.5%) -0.082 (-7.2%) 10/22/2023 83 1.137 1.6 0.043 (3.9%)* 0.043 (3.9%)* 10/16/2016 76 1.094 1.2 *Denotes significance at 95% confidence level, LSC for AP Spine = 0.022 g/cm2, LSC for Total Hip = 0.027 g/cm2 Clinical Information Provided by Patient: Has taken Glucocorticoids Has used the following medications: Vitamin D Has the following medical conditions: Asthma or Emphysema, Cancer, Hysterectomy Patient maximum height was 67 Menopause Age: 39 No regular weight bearing exercise Drinks caffeinated beverages Onset of menses at age 12 Number of children 3 Impression: The patient has normal bone mass. The patient has risk factors, including: history of glucocorticoid therapy. The BMD for the Total Hip(Left) decreased, changing by -7.6% since the last DXA exam. The BMD for the Total Hip(Right) decreased, changing by -7.2% since the last DXA exam. Discussion: LOW RISK OF FRACTURE; BONE DENSITY IS WELL ABOVE THE MINIMUM DESIRABLE LEVEL AND ABOVE AVERAGE FOR AGE AND SEX AT ALL SKELETAL SITES TESTED. This person's bone density is above expected limits for age and sex. This is rarely clinically significant, but should be pursued if there are significant musculoskeletal complaints. The patient should follow a healthful lifestyle (good nutrition with adequate calcium and vitamin D, and appropriate weight-bearing exercise). Follow-Up: Consider repeating this study in 3 to 4 years to reassess this patient's status, or sooner if there is some new clinical indication. Reported by: SAMANTHA on 01/03/2025 9:51:00 AM. Reviewed, dictated and finalized at location A.
== END 2025-01-03 09:12 | disposition home or self-care (01) ==
LOC: ANHIMG 09:13
PROVIDERS: Visit Provider Nurse Practitioner
DX: Z12.31 Encounter for screening mammogram for malignant neoplasm of breast (principal); M85.88 Other specified disorders of bone density and structure, other site
CPT/HCPCS: 77063; 77067; 77080

== ENCOUNTER 2025-02-12 17:23 | Emergency (ER) | payer MEDICARE, SELFPAY ==
--- NOTE | ~2025-02-12 | XR_ITS ---
EXAMINATION: XR chest 2V Exam Date/Time: 02/12/2025 18:10 CDT HISTORY: cough Comparison: 12/24/2018,. RESULT: Lines, tubes, and devices: Partially visualized left shoulder hardware. Close cystectomy clips. Lungs and pleura: Clear. Cardiomediastinal silhouette: Stable. Other: No acute osseous or upper abdominal finding. Chronic right AC joint widening. Chronic moderat e compression deformity at L2. IMPRESSION: No acute cardiopulmonary process. Reviewed, dictated and finalized at location K.
[2025-02-12 17:39] VITALS: BP 134/57; PULSE 77; RESP 18; TEMP 36.7; O2SAT 100
--- NOTE | 2025-02-12 17:43 | ED.URI ---
HPI - URI/Sore Throat General Chief Complaint: Upper Respiratory Infection Stated Complaint: woke up with a cold Time Seen by Provider: 02/12/25 17:25 patient presents to [facility] accompanied by spouse with complaints of fatigue, cough, and phlegm in throat that began upon waking this morning. Patient reports she would like to be tested for COVID-19 and she also has concerns for pneumonia due to frequent pneumonia in the past. No medication remedies attempted for symptoms. Denies fever, chills, body aches, shortness of breath, dizziness, headache, ear pain, sore throat, or sinus pain. Related Data Home Medications ?Medication ?Instructions ?Recorded ?Confirmed ?Last Taken ?Type cholecalciferol (vitamin D3) 50 50 mcg PO DAILY 05/02/22 02/12/25 Unknown History mcg (2,000 unit) capsule vitamin B12 1 mg-folic acid 0.8 mg tablet PO BID 05/02/22 01/12/25 Unknown History tablet atorvastatin 20 mg tablet 20 mg PO DAILY 12/11/23 02/12/25 Unknown History sacubitril 24 mg-valsartan 26 mg 1 tablet PO BID 02/23/24 02/12/25 Unknown History tablet (Entresto) vitamin E (dl, acetate) 45 mg (100 45 mg PO DAILY 07/19/24 01/12/25 Unknown History unit) capsule spironolactone 25 mg tablet 25 mg PO DAILY 09/09/24 02/12/25 Unknown History Allergies Allergy/AdvReac Type Severity Reaction Status Date / Time No Known Allergies Allergy Verified 02/12/25 17:35 Review of Systems Constitutional: Constitutional: Reports as per HPI, Denies chills, Reports fatigue, Denies fever(s) and Denies weakness Eyes: Eyes: Reports no additional eye complaints ENT: Reports as per HPI, Reports nasal congestion and Denies sore throat Cardiovascular: Cardiovascular: Reports no additional cardiovascular complaints Respiratory: Respiratory: Reports as per HPI, Reports chest congestion, Reports cough, Denies dyspnea and Denies wheezing Gastrointestinal: Gastrointestinal: Reports no additional gastrointestinal complaints Genitourinary: Genitourinary: Reports no additional female genitourinary complaints Musculoskeletal: Musculoskeletal: Reports as per HPI and Denies back pain Integumentary/Breasts: Skin/Breast: Reports system reviewed and no additional complaints, except as docu Neurologic: Reports as per HPI, Denies headache(s), Denies focal weakness, Denies numbness and Denies weakness Psychiatric: Psychiatric: Reports no additional psychiatric complaints Endocrine: Endocrine: Reports no additional endocrine complaints Hematologic/Lymphatic: Hematologic/Lymphatic: Reports no additional hematologic/lymphatic complaints Allergic/Immunologic: Allergic/Immunologic: Reports no additional allergic/immunologic complaints PMF Past Medical History Medical History group home use of drug Surgical History Surgical History Hx of cholecystectomy H/O arthroscopy H/O: hysterectomy H/O rotator cuff surgery H/O mastectomy Family History Family History Sibling Depression Hypertension Cerebrovascular accident Family history of malignant neoplasm of urinary bladder Family history of elevated blood lipids Family history of malignant neoplasm Family history of malignant melanoma Father Family history of glaucoma Hypertension Diabetes mellitus Mother Family history of malignant melanoma Hypertension Family history of elevated blood lipids Other Family history of arthritis Social History Social History Smoking status: Former smoker Alcohol intake: never Substance use: never Substance use type: does not use Do You Feel Safe in your Home?: Yes Lack of Transportation: No Lack of Food: Never True Current Housing: I Have Housing Concerned About Future Housing: No Difficulty Paying Gas/Electric Bills: No Difficulty Paying for Meds: No Currently Unemployed: No Education: High School Diploma/GED Difficulty w/ Childcare or Family Care: No Living arrangements: with family Occupation/Education: retired Gender identity (if verbalized by the patient): Female Sexual Orientation (if Verbalized by the Patient): Straight or Heterosexual Agree to blood products: Yes Exam Const: General: healthy appearing and no acute distress Nutritional Appearance: well nourished Orientation/consciousness: patient oriented x3 Limitations: no limitations HENMT: Head: normal to inspection Ears: external ears normal and TM's normal bilaterally Face/Nose/Sinus: Normal external nose present and Normal nares present Face and sinus: normal facial exam and sinuses nontender Mouth: Yes Normal oral and palatal mucosa present Throat: posterior oropharynx normal Neck: Neck: normal visual inspection and no lymphadenopathy Resp: Effort & Inspection: normal respiratory effort Auscultation: no crackles, no rales, no rhonchi, no wheezes, breath sounds present and diminished lung sounds Other: Dry cough noted Cardio: Rate: regular rate Rhythm: regular rhythm Skin: General skin exam: normal color Rashes: no rashes Wounds: no wounds Neuro: General: patient oriented x3 Speech: normal speech Gait exam (Neuro): Normal gait present Psych: Mental Status: mental status grossly normal Affect: normal affect Attitude: cooperative Course Course Level of Care: Express Care Visit Vital Signs Vital signs: Vital Signs Temperature 98.1 F 02/12/25 17:39 Pulse Rate 77 02/12/25 17:39 Respiratory Rate 18 02/12/25 17:39 Blood Pressure 134/57 L 02/12/25 17:39 Pulse Oximetry 100 02/12/25 17:39 Temperature 98.1 F 02/12/25 17:39 Pulse Rate 77 02/12/25 17:39 Respiratory Rate 18 02/12/25 17:39 Blood Pressure 134/57 L 02/12/25 17:39 Pulse Oximetry 100 02/12/25 17:39 MDM - URI/Sore Throat MDM Narrative Medical decision making narrative: fluid and COVID testing negative in clinic. Chest x-ray requested per patient. no pneumonia likely viral in nature. Will give patient medication to help with cough Discharge instructions reviewed with patient, as well as provided in writing per nursing staff. The instructions also include specific and strict return/GO TO THE ER as well as f/u information. All questions have been answered, and the patient deny any further questions with discharge and discharge plan. Differential Diagnosis Differential diagnosis: Likely upper respiratory infection, sinusitis, bronchitis and pharyngitis Medical Records Attestation: I reviewed the patient's medical records. Lab Data Attestation: I reviewed the patient's lab results. Labs: Lab Results 02/12/25 Range/Units 17:55 POC Influenza A Ag Negative (Negative) POC Influenza B Ag Negative (Negative) POC SARS CoV-2 Ag Negative (Negative) Imaging Data Attestation: I personally reviewed and interpreted this imaging study as follows: My impression: no change from previous Radiologist's impression: IMPRESSION: No acute cardiopulmonary process. Reviewed, dictated and finalized at location K. Discharge Plan Discharge Clinical Impression: Cough Patient Disposition: Home Condition: Stable Instructions: Antibiotic Form, Viral Syndrome (ED), Cold Symptoms (ED) Additional Instructions: Return to urgent care or go to the ER for new or worsening symptoms. Continue to take Tylenol or Motrin for pain. Use a humidifier or vaporizer at night. Take Medications as prescribed. Drink plenty of water. 8-10 glasses per day. Use flonase 2 times per day for 5 days then as needed Take mucinex 2 times per day and be sure to take with 8oz of water. Follow up with Primary provider if not getting better. Patient Language: [place] Island[place] Prescriptions: New benzonatate 200 mg capsule 200 mg PO TID PRN (Reason: cough) Qty: 30 0RF codeine-guaifenesin [Guaifenesin AC] 10-100 mg/5 mL liquid 5 ml PO Q6H PRN (Reason: cough) Qty: 120 0RF No Action atorvastatin 20 mg tablet 20 mg PO DAILY Entresto 24-26 mg tablet 1 tablet PO BID vitamin E (dl, acetate) 45 mg (100 unit) capsule 45 mg PO DAILY cholecalciferol (vitamin D3) 50 mcg (2,000 unit) capsule 50 mcg PO DAILY vitamin Z26-cvnvj acid 1-0.8 mg tablet PO BID spironolactone 25 mg tablet 25 mg PO DAILY Patient Comments: Ordered by Cardiology (DME) OneTouch Ultra Test Strip See Rx Instructions .Route Qty: 100 5RF Rx Instructions: use to test blood sugar daily clopidogrel 75 mg tablet 75 mg PO DAILY Qty: 90 1RF pantoprazole 40 mg tablet,delayed release (DR/EC) See Rx Instructions .ROUTE .COMPLEX Qty: 90 1RF Dose Instruction: TAKE 1 TABLET BY MOUTH ONCE DAILY IN THE MORNING Rx Instructions: TAKE 1 TABLET BY MOUTH ONCE DAILY IN THE MORNING Jardiance 25 mg tablet See Rx Instructions .ROUTE .COMPLEX Qty: 90 1RF Dose Instruction: Take 1 tablet by mouth once daily Rx Instructions: Take 1 tablet by mouth once daily levothyroxine [Tirosint] 150 mcg capsule See Rx Instructions .ROUTE .COMPLEX Qty: 90 1RF Dose Instruction: TAKE ONE Capsule BY MOUTH EVERY DAY Rx Instructions: TAKE ONE Capsule BY MOUTH EVERY DAY metoprolol succinate 25 mg tablet extended release 24 hr 25 mg PO BID Qty: 180 1RF ezetimibe 10 mg tablet See Rx Instructions .ROUTE .COMPLEX Qty: 90 1RF Dose Instruction: Take 1 tablet by mouth once daily Rx Instructions: Take 1 tablet by mouth once daily metformin 500 mg tablet extended release 24 hr See Rx Instructions .ROUTE .COMPLEX Qty: 360 1RF Dose Instruction: Take 2 tablets by mouth twice daily Rx Instructions: Take 2 tablets by mouth twice daily Follow-up/Referrals: Jennifer Chris DO [Primary Care Provider] - Time of Disposition: 18:37
[2025-02-12 17:56] LABS: EDCOVIDSCREEN Negative (Negative); EDINFLUASCREEN Negative (Negative); EDINFLUBSCREEN Negative (Negative)
== END 2025-02-12 18:40 | disposition home or self-care (01) ==
PROVIDERS: Emergency Provider Nurse Practitioner Family; PCP Family Medicine
DX: R05.9 Cough, unspecified (principal); Z20.822 Contact with and (suspected) exposure to COVID-19; Z87.891 Personal history of nicotine dependence
CPT/HCPCS: 71046; 87426; 87804; 99213; G0463

== ENCOUNTER 2025-06-09 09:03 | Outpatient (CLI) | payer MEDICARE, SELFPAY ==
--- OUTSIDE RECORDS SUMMARY | 2025-06-09 09:39 | XMS_ITS | Encounter Summary ---
Author Organization [facility] Address [address] [place] [address] Care Team Providers Care Conveyor Mechanic Name Role Phone Carissa Aragon MD Unavailable [phone] Jennifer Chris DO Primary Care Provider [phone] Bailey KwonW Unavailable Encounter Details Date Type Department Care Team (Late st Contact Info) Description 01/01/2024 Documentation [facility] 4 Med Surg [facility] [place] [address] Madelyn Galarza LPN Social History Tobacco Use Types Packs/Day Years Used Date Smoking Tobacco: Former Cigarettes 2 50 1 954 - 2004 Passive Smoke Exposure: Past Smokeless Tobacco: Never Alcohol Use Standard Drinks/Week Comments No 0 (1 standard drink = 0.6 oz pur e alcohol) [facility] Utilities Answer Date Recorded In the past 12 months has [employer], gas, oil, or water [employer] threatened to shut off services in your home? No 12/31/2023 Social Connection and Isolation Panel Answer Date Recorded In a typical week, how many times do you talk on the phone with family, friends, or neighbors? Three times a week 12/31/2023 How often do you get togethe r with friends or relatives? Three times a week 12/31/2023 How often do you attend chur or taoism services? More than 4 times per year 12/31/2023 Do you belong to any clubs o r organizations such as mosque groups, unions, fraternal or athletic groups, or [...] any time in the past 12 m [facility], were you homeless or living in a fpc (including now)? No 12/31/2023 Personal Safety Answer Date Recorded Have you ever been in or are you currently in a harmful physical or emotional relationship or is someone making you feel afraid or unsafe? 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 Gender Identity Not on file Sexual Orientation Not on file documented as of this encounter Functional Status * BP Location Answer Date of Assessment Author Left arm 01/01/2024 11:27 AM CDT Alice Howard * MAP (mmHg) Answer Date of Assessment Author 80 01/01/2024 11:27 AM CDT Alice Howard * Question Answer Date of Assessment Author BP Method Automatic 01/01/2024 4:12 AM CDT Margoth Bryant * Question Answer Date of Assessment Author Percent Meal Eaten (%) 100 01/01/2024 1:10 PM CDT Alice Howard Feeding Level of Assistance Able to feed self 01/01/2024 1:10 PM CDT Tomás Howard Appetite Good 01/01/2024 1:10 PM CDT Alice Salmon * BP Location Answer Date of Assessment Author Left arm 01/01/2024 11:27 AM CDT Alice Howard * Question Answer Date of Assessment Author BP Method Automatic 01/01/2024 4:12 AM CDT Margoth Bryant * Hygiene Question Answer Date of Assessment Author Hygiene Level of Assistance Independent 01/01/2024 12:00 PM CDT Alice Howard Toileting: Assistance with Up to bathroom toilet 01/01/2024 12:00 PM CDT Alice Howard Toileting: Level of assistance Stand by 01/01/2024 12:00 PM CDT Alice Howard documented as of this encounter Plan of Treatment Not on file documented as of this encounter Visit Diagnoses Not on filedocumented in this encounter Care Teams Conveyor Mechanic Relationship Specialty Start Date End Date Jennifer Chris DO PCP - General Family Medicine 08/05/22 Carissa Aragon MD Surgeon Surgical Oncology 07/11/22 Bailey Kwon, [facility] [address] [facility] ([facility]) Mailstop [phone] [place] [address] [employer] Outpatient Building Construction Engineer 12/09/23 01/05/24 documented as of this encounter
--- OUTSIDE RECORDS SUMMARY | 2025-06-09 09:39 | XMS_ITS | Clinical Summary ---
Author Organization [facility] [place] Address [address] [place] [address] Care Team Providers Care Manager Integration Name Role Phone Carissa Aragon MD Unavailable Jennifer Chris DO Primary Care Provider [phone] Allergies Active Allergy Reactions Criticality Noted Date [...] 1 capsule (150 mcg total) by mouth wash and greaser before breakfast 1 Active SITagliptin (JANUVIA) 25 [...] 1 tablet by mouth every evening Active aspirin 81 mg enteric coated tablet [...] total) by mouth daily 30 tablet 4 Active clopidogreL (PLAVIX) 75 mg tablet Take [...] DAY 2 THROUGH DAY 5 4 Active traMADoL (ULTRAM) 50 mg tablet Take 1 tablet (50 mg total) by mouth every 6 (six) hours as needed for pain 15 tablet 5 Active atorvastatin (LIPITOR) 20 mg tablet Take 1 tablet by mouth once daily 270 tablet 5 Active sacubitriL-vals ethan (Entresto) 24-26 mg tablet Take 1 tablet by mouth twice daily 180 tablet 1 5 Active spironolactone (ALDACTONE) 50 mg tablet Take 1 tablet by mouth once daily 90 tablet 1 5 Active Active Problems Problem Noted Date Diagnosed Date Carpal tunnel syndrome on right 10/19/2024 Right wrist pain 10/18/2024 Arthritis of right hand 10/18/2024 Brachial neuritis 10/15/2024 Carpal tunnel syndrome 10/15/2024 Disorder of bursae of shoulder region 10/15/2024 Enthesopathy of hip region 10/15/2024 Neck pain 10/15/2024 Partial thickness rotator cuff tear 10/15/2024 Skin sensation disturbance 10/15/2024 Spinal stenosis in cervical region 10/15/2024 Wrist joint pain 10/15/2024 Paresthesia 08/11/2024 Nonobstructive atherosclerosis of coronary arter y 01/22/2024 Assessment & Plan (03/25/2024 10:52 AM CDT): LHC from 12/2023 noted zhyq-je-nxlycrxd coronary plaquing in LAD, circumflex and right coronary. No angina. Continue atorvastatin and metoprolol XL. She will discuss with her family doctor and vascular surgery regarding continuing on aspirin or Plavix alone given history lower extremity clots. 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 Medicine Cardiology [address] 8[address] [place] [address] [place] [address] Dwayne Grewal MD Stress-induced cardiomyopathy (Primary Dx); Primary hypertension; Nonobstructive atherosclerosis of coronary artery from Last 3 Months Surgical History Surgery Date Site/Laterality Comments BREAST BIOPSY 07/21/2019 Left FLUORO GUIDED INJECTION SHOULDER LEFT 07/31/2023 Left SHOULDER SURGERY 11/05/2023 - 12/05/2023 Left reversed shoulder surgery CARPAL TUNNEL RELEASE 11/04/2024 Right Medical History Medical History Date Comments Hypertension Asthma Diabetes mellitus type I Family History Medical History Relation Name Comments Melanoma Mother Family history of malignant melanoma - (Added by TW Conv) Anesthesia problems Neg Hx Malig Hypertension [...] drink = 0.6 oz pur e alcohol) [facility] Utilities Answer Date Recorded In the [...] often do you attend chur ch or restorationism services? More than 4 times per year 12/31/2023 Do you belong to any clubs o r organizations such as adventist groups, unions, fraternal or athletic groups, or school groups? No 12/31/2023 How often do you attend meet ings of the clubs or organizations you belong to? Never 12/31/2023 Are you , , di vorced, , never , or living with a partner? 12/31/2023 AUDIT-C Answer Date Recorded Q1: How often do you have a drink containing alcohol? Never 11/04/2024 Q2: How many drinks containi ng alcohol do you have on a typical day when you are drinking? Patient does not drink Frequency of Binge Drinking Not on file 07/2024 Overall Financial Resource Strain (CARDIA) Answe r [...] any time in the past 12 m [facility], were you homeless or living in a long term (including now)? No 12/31/2023 Personal Safety Answer Date Recorded Have you ever been in or are you currently in a harmful physical or emotional relationship or is someone making you feel afraid or unsafe? 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 Gender Identity Not on file Sexual Orientation Not on file Last Filed Vital Signs Vital Sign Reading Time Taken Comments Blood Pressure 126/74 04/04/2025 3:07 PM CDT Pulse 68 04/04/2025 3:07 PM CDT Temperature 36.6 C (97.8 F) 11/04/2024 8:15 AM CDT Respiratory Rate 18 11/04/2024 8:30 AM CDT Oxygen Saturation 93% 04/04/2025 3:07 PM CDT Inhaled Oxygen Concentration - - Weight 77.6 kg (171 lb) 04/04/2025 3:07 PM CDT Height 170.2 cm (5' 7) 04/04/2025 3:07 PM CDT Body Mass Index 26.78 04/04/2025 3:07 PM CDT Plan of Treatment Health Maintenance Due Date Last Done Comments Albumin Creatinine Ratio, Urine 1938 Depression Screening 1938 Osteoporosis Screening-Bone Density Scan 1938 Dilated Eye Exam 1938 Foot Exam 1938 Hepatitis B Screening 1956 Zoster Vaccine (1 of 2) 1988 Well Visit 65+ 09/09/2003 DTaP/Tdap/Td Vaccine (1 - Tdap) 01/06/2010 0, 03/06/1999 Hemoglobin A1C 05/19/2024 11/17/2023, 04/25/2021 Lipid Panel 12/31/2024 01/01/2024, 11/05, 04/24/2021 eGFR 01/21/2025 01/22/2024, 12/06, 12/30/2023, Additional history exists Covid-19 Vaccine (2024-2 6 season) 2025 03/26/2023, 04/29/2022, 06/02/2021, Additional history exists Influenza Vaccine (#1) 2025 , 04/05/2023, 04/01/2023, Additional history exists Fall Risk Assessment 11/04/2025 11/04/2024 Pneumococcal vaccine 65+ Completed 09/05/2014, 12/05 Medical Devices Implanted Type Area Tape Keller Operator Device Identifier Shelf Expiration Date Model / Serial / Lot [employer] Viola Angio-Seal Vip 6fr Closere Device [id number] - [id number] - [id number] Implanted:Qty: 1 on 12/03/2023 by Salvador Mejia MD PhD at [facility] Vascular Closure Device [employer] Viola 07/28/2024 [id number] / [id number] / [id number] [employer] Caitlin Tiwari Perform 36mm Lateralize Reverse Shoulder +3mm [id number] - [id number] - [id number] Implanted:Qty: 1 on 12/03/2023 by Marko Baum MD at [facility] Left: Shoulder [employer] 10/12/2028 [id number] / [id number] / [employer] Tornier Aequalis Perform 15mm Press Fit Long Post Shoulder [id number] - [id number] - [id number] Implanted:Qty: 1 on 12/03/2023 by Marko Baum MD at [facility] Left: Shoulder [employer] 05/20/2028 [id number] / [id number] / [employer] Aequalis Perform Od25 Mm Augment 35 D Half Wedge Baseplate Glenoid [id number] - [id number] - [id number] Implanted:Qty: 1 on 12/03/2023 by Marko Baum MD at [facility] Left: Shoulder [employer] 10/16/2028 [id number] / [id number] / [employer] Aequalis Perform Reversed 5mm 38mm Peripheral Glenoid Screw [id number] - [id number] Implanted:Qty: 1 on 12/03/2023 by Marko Baum MD at [facility] Left: Shoulder [employer] [id number] / / [employer] Aequalis Perform Reversed 5mm 14mm Peripheral Glenoid Screw [id number] - [id number] Implanted:Qty: 1 on 12/03/2023 by Marko Baum MD at [facility] Left: Shoulder [employer] [id number] / / [employer] Aequalis Perform Reversed 5mm 18mm Peripheral Glenoid Screw [id number] - [id number] Implanted:Qty: 1 on 12/03/2023 by Marko Baum MD at [facility] Left: Shoulder [employer] [id number] / / [employer] Aequalis Perform Reversed 5mm 22mm Peripheral Glenoid Screw [id number] - [id number] Implanted:Qty: 1 on 12/03/2023 by Marko Baum MD at [facility] Left: Shoulder [employer] [id number] / / [employer] Insert Humeral 10 Degree Reverse Size 1/2 +0 Perform 36mm Combination [id number] - [id number] - [id number] Implanted:Qty: 1 on 12/03/2023 by Marko Baum MD at [facility] Left: Shoulder [employer] 12/28/2027 [id number] / [id number] / [employer] Tray Stem Humeral Shoulder Reverse Aequalis Perform [id number] - [id number] - [id number] Implanted:Qty: 1 on 12/03/2023 by Marko Baum MD at [facility] Left: Shoulder [employer] 09/11/2027 [id number] / [id number] / Procedures Procedure Name Priority Date/Time Associated Diagnosis Comments BASIC METABOLIC PANEL Routine 01/22/2024 12:55 PM CDT Stress-induced cardiomyopathy LIPID PANEL Routine 01/01/2024 10:17 AM CDT HEMOGLOBIN A1C Routine 11/17/2023 11:30 AM CDT Primary osteoarthritis of left shoulder Preoperative testing History of diabetes mellitus from Last 3 Months or Most Recently Relevant to Health Maintenance Results * (ABNORMAL) Basic metabolic panel (01/22/2024 12:55 PM CDT) Pathologist [facility] Glucose 175(H) 64 - 99 mg/dL ORCHARD [...] last revised on 2018. Testing performed by: [address] [address] Triglycerides 189(H) <=149 mg/dL [facility] Comment: Interpretive [...] last revised on 2018. Testing performed by: [address] [address] HDL 27(L) >=40 mg/dL [facility] Comment: Interpretive [...] last revised on 2018. Testing performed by: [address] [address] LDL, calculated 26 <=129 mg/dL [facility] [place] Comment: Interpretive Data Ages [...] last revised on 2018. Testing performed by: [address] [address] Non-HDL Cholesterol 64 mg/dL [facility] [place] Comment: Interpretive Data Ages [...] last revised on 2018. Testing performed by: [address] [address] Chol/HDL ratio 3 [facility] [place] Comment:Testing performed by : [address] [address] Blood 01/01/2024 10:1 7 AM CDT 01/01/2024 10:49 AM CDT Francisco Phipps MD LAB BLOOD ORDERABLES Fi nal Result [facility] [place] [address] [facility] Department [place] [address] * (ABNORMAL) Hemoglobin A1c (11/17/2023 11:30 AM CDT) Hgb A1C 8.1(H) 4.0 - 5.6 % Estimated Average Glucose 186 mg/dL [facility] Comment: The ADA recommends reporting an estimated [...] Baum MD LAB BLOOD ORDERABLES Final Result [facility] Department [place] [address] from Last 3 Months or Most Recently Relevant to Health Maintenance Insurance MEDICARE [facility] MEDICARE SUPPLEMENT MEDICARE [facility] MEDICARE SUPPLEMENT Advance Directives For more information, please contact: [phone] * Full Code (Latest Code Status on [...] 4:41 PM 04/25/2021 9:09 PM Care Teams Manager Integration Relationship Specialty Start Date End Date GuydaiJennifer colbertDO PCP - General Family Medicine 08/05/22 Carissa Aragon MD Surgeon Surgical Oncology 07/11/22
--- OUTSIDE RECORDS SUMMARY | 2025-06-09 09:40 | XMS_ITS ---
Author Organization [facility] Address [address] [place] [address] Care Team Providers Care Button Broacher Name Role Phone Carissa Aragon MD Unavailable [phone] Jennifer Chris DO Primary Care Provider [phone] Active Problems Problem Noted Date Diagnosed Date [...] 10:52 AM CDT): LHC from 12/2023 noted qypi-mz-lrqcclbk coronary plaquing in LAD, circumflex and right coronary. No angina. Continue atorvastatin and metoprolol XL. She will discuss with her family doctor and vascular surgery regarding continuing on aspirin or Plavix alone given history lower extremity clots. Assessment & Plan (01/22/2024 9:03 PM CDT): LHC from 12/2023 noted qxum-rp-zexfqzhb coronary plaquing in LAD, circumflex and right [...] NEC Hypothyroidism 11/20/2013 Overview (10/12/2016): HYPOTHYROIDISM NOS Current Treatment and Therapy Plans No current plan information found. Past Treatment and Therapy Plans No past plan information found. Lifetime Dose Tracking * Chemical Lifetime Dose Automatic Entry Manual Entr y Fluoro Time 12.567 minutes 0.167 minutes 12.4 minutes Air kerma at the reference point (Ka,r) 447 mGy 0 .001 mGy 447 mGy DLP 1,398 mGycm 1,398 mGycm 0 mGycm DAP 30.5 Gy-cm2 0 Gy-cm2 30.5 Gy-cm2
[2025-06-09 14:42] LABS: Alanine Aminotransferase 29 U/L (6-35); Albumin Level 4.3 g/dL (3.5-5.1); Alkaline Phosphatase 95 U/L (38-126); Anion Gap 7 mmol/L (4-12); Aspartate Amino Transferase 70 U/L (14-36); Bilirubin,Total 0.7 mg/dL (0.2-1.3); Blood Urea Nitrogen 35 mg/dL (7-17); Calcium 9.1 mg/dL (8.4-10.2); Carbon Dioxide 24 mmol/L (22-30); Chloride 104 mmol/L (98-107); Cholesterol 88 mg/dL (0-200); Estimated Glomerular Filt Rate 56; Glucose 153 mg/dL (65-110); HDL Direct 27 mg/dL; Potassium 4.7 mmol/L (3.4-5.0); Sodium 135 mmol/L (137-145); Total Protein 7.5 g/dL (6.3-8.2); Triglycerides 168 mg/dL (<150)
[2025-06-09 15:18] LABS: Thyroid Stimulating Hormone 0.454 uIU/mL (0.465-4.680)
[2025-06-09 16:03] LABS: Hemoglobin A1C 8.0 % (<5.7)
[2025-06-09 16:04] LABS: MALB Creatinine Ratio 13.5 mg/g (0-30)
[2025-06-09 16:15] LABS: Free T4 Free Thyroxine 1.39 ng/dL (0.78-2.19)
== END 2025-06-09 09:04 | disposition home or self-care (01) ==
LOC: ANHGOSHLAB 09:04
PROVIDERS: PCP Family Medicine; Visit Provider Nurse Practitioner
DX: E03.9 Hypothyroidism, unspecified (principal); I10 Essential (primary) hypertension; E11.65 Type 2 diabetes mellitus with hyperglycemia; R80.9 Proteinuria, unspecified; E55.9 Vitamin D deficiency, unspecified
CPT/HCPCS: 36415; 80053; 80061; 82043; 82306; 83036; 84439; 84443

== ENCOUNTER 2025-06-10 13:55 | Emergency (ER) | payer MEDICARE, SELFPAY ==
[2025-06-10 14:05] VITALS: BP 130/55; PULSE 69; RESP 16; TEMP 36.6; O2SAT 99
--- NOTE | 2025-06-10 14:33 | ECG_ITS ---
Test Date: 2025-06-10 14:41:26 Measurements Intervals [place] Rate: 63 P: 71 AR: 189 QRS: 9 QRSD: 96 T: 50 QT: 409 QTc: 421 Interpretive Statements SINUS RHYTHM WITH OCCASIONAL SUPRAVENTRICULAR PREMATURE COMPLEXES BASELINE ARTIFACT- I, II, III, AVR, AVL, AVF, V1-V6 BORDERLINE ECG No previous ECG available for comparison Electronically Signed On 06-10-2025 14:59:46 INSTRUCTIONAL TECHNOLOGY COORDINATOR by El Moore D.O.
[2025-06-10] MEDS: ONDANSETRON INJ 4 MG/2 ML VIAL IM (15:09)
--- NOTE | 2025-06-10 15:29 | ED.ABDPAIN ---
HPI - Abdominal Pain General Chief Complaint: Abdominal Pain Stated Complaint: STOMACH PAIN/VOMITING Time Seen by Provider: 06/10/25 14:30 Source: patient and RN notes reviewed Mode of arrival: ambulatory Limitations: no limitations History of Present Illness HPI narrative: 84-year-old female patient presents to the [facility] complaining of Abdominal pain for 2 days. Patient says she started vomiting this morning patient was at her doctor's office this morning and vomited soon as she left her doctor sent her daughter here for further evaluation. Her doctor her lab work and a CT scan, pending insurance. Patient reports pain is worse when she eats. Patient has any diarrhea, black tarry stools, chest pain, difficulty breathing, fevers, body aches, chills, or any other symptoms. Reports history of coronary artery disease, pancreatitis, diabetes. Related Data Home Medications ?Medication ?Instructions ?Recorded ?Confirmed ?Last Taken ?Type cholecalciferol (vitamin D3) 50 50 mcg PO DAILY 05/02/22 06/10/25 Unknown History mcg (2,000 unit) capsule vitamin B12 1 mg-folic acid 0.8 mg tablet PO BID 05/02/22 06/10/25 Unknown History tablet atorvastatin 20 mg tablet 20 mg PO DAILY 12/11/23 06/10/25 Unknown History sacubitril 24 mg-valsartan 26 mg 1 tablet PO BID 02/23/24 06/10/25 Unknown History tablet (Entresto) vitamin E (dl, acetate) 45 mg (100 45 mg PO DAILY 07/19/24 06/10/25 Unknown History unit) capsule spironolactone 25 mg tablet 25 mg PO DAILY 09/09/24 06/10/25 Unknown History Allergies Allergy/AdvReac Type Severity Reaction Status Date / Time No Known Allergies Allergy Verified 06/10/25 14:01 Review of Systems Review of Systems: CONSTITUTIONAL: Denies fever, chills, or sweats. EYES: Denies visual changes, redness, or discharge. ENT: Denies rhinorrhea, congestion, sore throat, or otalgia. CARDIOVASCULAR: Denies chest pain, palpitations, or edema. RESPIRATORY: Denies cough or dyspnea. GASTROINTESTINAL: Positive for abdominal pain, nausea, vomiting. Negative for diarrhea. GENITOURINARY: Denies dysuria or hematuria. SKIN: Denies rash or itching. MUSCULOSKELETAL: Denies back pain, joint pain, or myalgia. NEUROLOGIC: Denies headache, numbness, or weakness. PSYCHIATRIC: Denies anxiety or depression. All other systems reviewed are negative, except as documented in HPI. 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 Surgical History Surgical History Hx of cholecystectomy H/O arthroscopy H/O: hysterectomy H/O rotator cuff surgery H/O mastectomy Family History Family History Sibling Depression Hypertension Cerebrovascular accident Family history of malignant neoplasm of urinary bladder Family history of elevated blood lipids Family history of malignant neoplasm Family history of malignant melanoma Father Family history of glaucoma Hypertension Diabetes mellitus Mother Family history of malignant melanoma Hypertension Family history of elevated blood lipids Other Family history of arthritis Social History Social History Smoking status: Former smoker Alcohol intake: never Substance use: never Substance use type: does not use Lack of Transportation: No Lack of Food: Never True Current Housing: I Have Housing Concerned About Future Housing: No Difficulty Paying Gas/Electric Bills: No Difficulty Paying for Meds: No Currently Unemployed: No Education: High School Diploma/GED Difficulty w/ Childcare or Family Care: No Living arrangements: with family Occupation/Education: retired Gender identity (if verbalized by the patient): Female Sexual Orientation (if Verbalized by the Patient): Straight or Heterosexual Agree to blood products: Yes Comments At the time of my signature, I reviewed and agree with the nursing past medical, surgical, social, and family history. There is no relevant family history pertinent to the patient complaint. Exam Narrative: GENERAL: This is a well-nourished, well-developed adult, in no apparent distress. They are non ill-appearing, nontoxic appearing. HEAD: normocephalic, atraumatic. EYES: Sclera clear/white. Conjunctiva normal. Vision is grossly intact. Extraocular movements intact EARS: External ears normal, Hearing grossly intact. NOSE: External nose normal THROAT: Mucous membranes moist, NECK: Neck supple, non-tender without lymphadenopathy, masses or thyromegaly. CARDIOVASCULAR: Regular rate and rhythm without murmurs, gallops, or rubs. RESPIRATORY: Clear to auscultation. Breath sounds equal bilaterally. No wheezes, rales, or rhonchi. GASTROINTESTINAL: Abdomen soft, epigastric/umbilical tenderness to palpation. There is guarding to the epigastrium/umbilical region. Nondistended. Bowel sounds are hyperactive. No hepato-splenomegaly, or palpable masses. No rebound tenderness. SKIN: warm, Dry, intact with no suspicious lesions or rash, good texture and turgor. NEURO: awake, alert, and oriented to person, place and time. There were no obvious focal neurologic abnormalities. EXTREMITIES: No joint tenderness, effusion, or edema noted. BACK: Nontender without deformity. No CVA tenderness. Course Course Level of Care: Express Care Visit Vital Signs Vital signs: Vital Signs Temperature 97.8 F 06/10/25 14:05 Pulse Rate 69 06/10/25 14:05 Respiratory Rate 16 06/10/25 14:05 Blood Pressure 130/55 L 06/10/25 14:05 Pulse Oximetry 99 06/10/25 14:05 Temperature 97.8 F 06/10/25 14:05 Pulse Rate 69 06/10/25 14:05 Respiratory Rate 16 06/10/25 14:05 Blood Pressure 130/55 L 06/10/25 14:05 Pulse Oximetry 99 06/10/25 14:05 Transfer Transfered to: [place] Transportation: Other (Private vehicle) Transfer rationale: Abdominal pain, patient requires higher level care Accepting physician: Jacklyn MEANS [facility] Narrative Medical decision making narrative: Patient scarring in her abdomen to the epigastrium/umbilical region, and is tender to palpate. Patient is also vomiting. EKG is sinus rhythm no ischemic findings. Given patient's symptoms, it is recommend the patient seek a higher level care and proceed immediately to the emergency department. Patient agreeable to go to [place] [facility]. Called over to [place] [facility] and spoke to Jacklyn MEANS WHO IS AWARE THIS PATIENT ACCEPTED THE PATIENT FOR TRANSFER. Before patient was evening she started to vomit, she was given an IM injection of Zofran, with improvement of symptoms. Patient to go by private vehicle. Vital hemodynamically stable, patient nontoxic appearing, no apparent distress. Differential Diagnosis Differential Diagnosis: Gastroenteritis, pancreatitis, appendicitis, diverticulitis, small-bowel obstruction, acute coronary syndrome ECG Data EKG #1: ECG completion date: 06/10/25 ECG completion time: 14:42 Prior ECG tracings: not available for review normal rate, sinus rhythm (Sinus Arrhythmia), no ST changes, normal QRS, normal QT and NL axis Critical Care Time Critical Care Time Critical Care Time: No Discharge Plan Discharge Clinical Impression: Abdominal pain Vomiting Qualifiers: Vomiting type: unspecified Nausea presence: with nausea Qualified Code(s): R11.2 - Nausea with vomiting, unspecified Patient Disposition: Acute Care Hospital Condition: Stable Patient Language: Burundian Prescriptions: No Action atorvastatin 20 mg tablet 20 mg PO DAILY Entresto 24-26 mg tablet 1 tablet PO BID vitamin E (dl, acetate) 45 mg (100 unit) capsule 45 mg PO DAILY ezetimibe 10 mg tablet See Rx Instructions .ROUTE .COMPLEX Qty: 90 1RF Dose Instruction: Take 1 tablet by mouth once daily Rx Instructions: Take 1 tablet by mouth once daily metformin 500 mg tablet extended release 24 hr See Rx Instructions .ROUTE .COMPLEX Qty: 360 1RF Dose Instruction: Take 2 tablets by mouth twice daily Rx Instructions: Take 2 tablets by mouth twice daily (DME) Intamac SystemsTouch Ultra Test Strip See Rx Instructions .Route Qty: 100 5RF Rx Instructions: use to test blood sugar daily albuterol sulfate [Ventolin HFA] 90 mcg/actuation HFA aerosol inhaler 2 inh inhalation Q4H PRN (Reason: shortness of breath or wheezing) Qty: 8.5 0RF cholecalciferol (vitamin D3) 50 mcg (2,000 unit) capsule 50 mcg PO DAILY vitamin H84-ckiat acid 1-0.8 mg tablet PO BID spironolactone 25 mg tablet 25 mg PO DAILY Patient Comments: Ordered by Cardiology clopidogrel 75 mg tablet 75 mg PO DAILY Qty: 90 1RF pantoprazole 40 mg tablet,delayed release (DR/EC) See Rx Instructions .ROUTE .COMPLEX Qty: 90 1RF Dose Instruction: TAKE 1 TABLET BY MOUTH ONCE DAILY IN THE MORNING Rx Instructions: TAKE 1 TABLET BY MOUTH ONCE DAILY IN THE MORNING Jardiance 25 mg tablet See Rx Instructions .ROUTE .COMPLEX Qty: 90 1RF Dose Instruction: Take 1 tablet by mouth once daily Rx Instructions: Take 1 tablet by mouth once daily levothyroxine [Tirosint] 150 mcg capsule See Rx Instructions .ROUTE .COMPLEX Qty: 90 1RF Dose Instruction: TAKE ONE Capsule BY MOUTH EVERY DAY Rx Instructions: TAKE ONE Capsule BY MOUTH EVERY DAY metoprolol succinate 25 mg tablet extended release 24 hr 25 mg PO BID Qty: 180 1RF Follow-up/Referrals: Jennifer Chris DO [Primary Care Provider, [facility]] Time of Disposition: 15:00
== END 2025-06-10 15:35 | disposition short-term general hospital (02) ==
PROVIDERS: PCP Family Medicine
DX: R10.13 Epigastric pain (principal); R10.33 Periumbilical pain; R11.2 Nausea with vomiting, unspecified; I25.10 Atherosclerotic heart disease of native coronary artery without angina pectoris; Z87.891 Personal history of nicotine dependence
CPT/HCPCS: 93005; 96372; 99213; G0463; J2405

== ENCOUNTER 2025-06-17 11:05 | Outpatient (CLI) | payer MEDICARE, SELFPAY ==
--- NOTE | ~2025-06-17 | CT_ITS ---
EXAM/PROCEDURE: CT abdomen wo con HISTORY: R10.9 - Unspecified abdominal pain COMPARISON: CT exam from September 17, 2019 and lumbar spine x-rays from October 27, 2024 TECHNIQUE: Noncontrast CT of the abdomen only performed. FINDINGS: Directed examination of the abdomen only demonstrates nonobstructive bowel gas pattern within the field of view. Bilateral parapelvic cysts are present left greater than right. No gross hydronephrosis or hydroureter. The liver is borderline enlarged measuring 19.5 cm in the cephalocaudal dimension. Cholecystectomy clips with pneumobilia. Small hiatal hernia. Unopacified and nondistended stomach with no obvious acute abnormality. At least moderate amount of stool extends to the cecum. There is moderately severe diverticular disease in the visualized large bowel with no obvious diverticulitis within the field of view. Stool pattern may be in some of the loops of small bowel. Several loops of small bowel are borderline distended measuring up to 2.5 cm. No AAA. Spleen pancreas and adrenal glands unremarkable. Lung bases clear. Mitral annular calcification present. Heart size normal with no significant pericardial effusion Diffuse degenerative changes in the bones. Approximately 20% interval anterior compression fracture of the inferior endplate of L2 since the previous exam. IMPRESSION: 1. Very limited examination demonstrating scattered loops of borderline distended small bowel. Findings could represent ileus; correlate clinically to exclude obstruction. 2. Cholecystectomy changes with extensive pneumobilia. 3. Small hiatal hernia and several bilateral renal cysts. 4. Mild compression fracture of L2 unchanged since the October 27, 2024 exam. Reviewed, dictated and finalized at location A. SHING TECHNICIAN IMPRESSION: 1. Very limited examination demonstrating scattered loops of borderline distend ed small bowel. Findings could represent ileus; correlate clinically to exclude obstruction. 2. Cholecystectomy changes with extensive pneumobilia. 3. Small hiatal hernia and several bilateral renal cysts. 4. Mild compression fracture of L2 unchanged since the October 27, 2024 exam.
[2025-06-17 12:19] LABS: Hematocrit 45.1 % (37.0-47.0); Hemoglobin 14.1 g/dL (12.0-15.0); Mean Corpuscular HGB Conc 31.3 g/dl (32-36); Mean Corpuscular Hemoglobin 29.7 pg (26-34); Mean Corpuscular Volume 95.1 fl (80-100); Platelet Count Result 259 k/mm3 (150-375); Red Blood Count 4.74 M/mm3 (4.2-5.4); White Blood Count 8.8 K/mm3 (4.5-10.0)
[2025-06-17 12:45] LABS: Alanine Aminotransferase 26 U/L (6-35); Albumin Level 4.2 g/dL (3.5-5.1); Alkaline Phosphatase 94 U/L (38-126); Anion Gap 5 mmol/L (4-12); Aspartate Amino Transferase 26 U/L (14-36); Bilirubin,Total 0.5 mg/dL (0.2-1.3); Blood Urea Nitrogen 25 mg/dL (7-17); Calcium 9.2 mg/dL (8.4-10.2); Carbon Dioxide 28 mmol/L (22-30); Chloride 104 mmol/L (98-107); Cholesterol 85 mg/dL (0-200); Estimated Glomerular Filt Rate > 60; Glucose 279 mg/dL (65-110); HDL Direct 32 mg/dL; Potassium 4.7 mmol/L (3.4-5.0); Sodium 137 mmol/L (137-145); Total Protein 7.1 g/dL (6.3-8.2); Triglycerides 121 mg/dL (<150)
[2025-06-17 13:21] LABS: Thyroid Stimulating Hormone 0.310 uIU/mL (0.465-4.680)
[2025-06-17 15:05] LABS: Hemoglobin A1C 8.2 % (<5.7)
== END 2025-06-17 11:06 | disposition home or self-care (01) ==
PROVIDERS: PCP Family Medicine; Visit Provider Family Medicine
DX: K44.9 Diaphragmatic hernia without obstruction or gangrene (principal); N28.1 Cyst of kidney, acquired; E78.5 Hyperlipidemia, unspecified; I10 Essential (primary) hypertension; E11.65 Type 2 diabetes mellitus with hyperglycemia; E03.9 Hypothyroidism, unspecified; E66.9 Obesity, unspecified; Z68.26 Body mass index [BMI] 26.0-26.9, adult; S32.020D Wedge compression fracture of second lumbar vertebra, subsequent encounter for fracture with routine healing; X58.XXXD Exposure to other specified factors, subsequent encounter; Z79.899 Other long term (current) drug therapy; Z90.49 Acquired absence of other specified parts of digestive tract
CPT/HCPCS: 36415; 74150; 80053; 80061; 83036; 84443; 85027

== ENCOUNTER 2025-06-21 10:25 | Outpatient (CLI) | payer MEDICARE, SELFPAY ==
--- OUTSIDE RECORDS SUMMARY | 2025-03-03 07:20 | XMS_ITS ---
Author Organization [facility] Address [address] [place], [place] [id number] Care Team Providers Care Head Boys Golf Coach Name Role Phone CHEIKH SCHROEDER Unavailable [phone] Vernacjaime Jennifer Unavailable Unavailable Allergies Allergen (clinical drug ingredient) Drug/Non Drug Allergy documented on EMR Reaction Allergy Type Onset Date Status Tape Unknown Allergy Active REASON FOR VISIT *General care Medications Medication SIG (Take, Route, Frequency, Duration) Notes Start Date End Date Status Clopidogrel Bisulfate 75 MG Tablet Oral; Duration: 90 Days Acti ve HYDROcodone-Acetaminophen 5-325 MG Tablet Oral; Duration: 7 Days Ac tive Pantoprazole Sodium 40 MG Tablet Delayed Release Oral; Duration: 90 Days Active valACYclovir HCl 1 GM Tablet TAKE 1 TABLET BY MOUTH EVERY 8 HOURS Oral; Duration: 10 Days Active Jardiance 25 MG Tablet Oral; Duration: 90 Days Active metFORMIN HCl ER 500 MG Tablet Extended Release 24 Hour TAKE 2 TABLETS BY MOUTH TWICE DAILY Oral; Duration: 90 Days Active Ezetimibe 10 MG Tablet Oral; Duration: 90 Days Active Metoprolol Succinate ER 25 MG Tablet Extended Release 24 Hour TAKE 1 TABLET BY MOUTH TWICE DAILY Oral; Duration: 90 Days Active Atorvastatin Calcium 20 MG Tablet Oral; Duration: 90 Days Acti ve OneTouch Ultra - Strip USE STRIP TO CHEC K GLUCOSE ONCE DAILY In Vitro; Duration: 90 Days Active Vital Signs Height 66 in 03/03/2025 Height-cm 167.64 cm 03/03/2025 Encounters Encounter Location Date Provider Diagnosis [facility] [address] [place], [place] [id number] 03/03/2025 CHEIKH SCHROEDER Fungal infection of nail B35.1 ; Pain in right toe(s) M79.674 ; Pain in left toe(s) M79.675 and 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, bilateral legs I70.203 Assessments Encounter Date Diagnosis (ICD Code) Assessment Notes Treatment Notes Treatment Clinical Notes Section Notes 03/03/2025 Fungal infection of nail (ICD-10 - B35.1) 03/03/2025 Pain in right toe(s) (ICD-10 - M79.674) 03/03/2025 Pain in left toe(s) (ICD-10 - M79.675) 03/03/2025 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, bilateral legs (ICD-10 - I70.203) 03/03/2025 Other Nails 1-5 Bilateral were debrided extensively with nail nippers and emery board, reducing length and girth to pink healthy tissue with any subungual debris and necrotic tissue removed Nails 1-5 Bilateral were debrided extensively with nail nippers and emery board, reducing length and girth to pink healthy tissue with any subungual debris and necrotic tissue removed Plan Of Treatment Treatment Notes Assessment Notes Other Nails 1-5 Bilateral were debrided extensively with nail nippers and emery board, reducing length and girth to pink healthy tissue with any subungual debris and necrotic tissue removed Nails 1-5 Bilateral were debrided extensively with nail nippers and emery board, reducing length and girth to pink healthy tissue with any subungual debris and necrotic tissue removed Next Appt Details Follow Up: 9 weeks. 9 weeks, Reason: Provider Name:CHEIKH COOPER, 07/15/2025 02:20:00 PM, [address] [facility], [place], [place], [id number], History and Physical Notes * HPI (History of Present Illness) Category Sub-Category Detail Notes Category Not es HPI General care Patient presents to the office for diabetic foot care. Patient states that their nails are thickened, elongated and painful. Patient states that it is aggravated by shoe gear. Onset is gradual., Patient is taking prescription blood thinners., Date last seen by Dr. Chris was February 2025., Initials JMR Examination Category Sub-Category Detail Notes Category Not es Constitutional Constitutional The patient is a wake, alert, well developed, well groomed and well nourished. , The patient is awake, alert, well developed, well groomed and well nourished. Dermatologic Skin findings: Skin is thin, at rophic and lacking pedal hair. , Skin is thin, atrophic and lacking pedal hair. Nail pathology: Nails 1-5 bilateral are elongated, thick, discolored, and dystrophic with subungual debris. They are painful to palpation , Nails 1-5 bilateral are elongated, thick, discolored, and dystrophic with subungual debris. They are painful to palpation Ulcer: There is no evidence of ulceration noted at this time , There is no evidence of ulceration noted at this time Hyperkeratotic Skin Lesion There is no e vidence of hyperkeratosis , There is no evidence of hyperkeratosis Musculoskeletal Muscle Strength Muscle strength is 5/5 in regards to dorsiflexion, plantarflexion, inversion, and eversion in bilateral lower extremities. , Muscle strength is 5/5 in regards to dorsiflexion, plantarflexion, inversion, and eversion in bilateral lower extremities. Pain on palpation There is no pain on palpation , There is no pain on palpation Foot Structure The foot structure i s noted to be normal bilaterally , The foot structure is noted to be normal bilaterally Gait There is normal gait noted , There is normal gait noted Neurologic Muscle power: 5/5 bilaterally , 5/5 bilat erally Gross sensation Gross sensation is i ntact to light touch. , Gross sensation is intact to light touch. Vascular Dorsalis pedis pulse: 0/4 bilateral , 0/4 bilateral Posterior tibial pulse: 0/4 bilaterally , 0/4 bilaterally Capillary refill: greater than 3 secon ds bilaterally , greater than 3 seconds bilaterally Temperature gradient: warm to cool bilat erally , warm to cool bilaterally Progress Notes * MANFRED SYKESDOB:1940 (84 yo F)Acc No.[id number]:03/03/2025 Patient: MANFRED BROWN Provider: Jaime Schroeder DPM :1940 A ge:84 Y S ex:Female Date:03/03/2025 Address:[address] [place] [address] Subjective: * Chief Complaints: * * General care * HPI: H PI: General care P lalito presents to the office for diabetic foot care. Patient states that their nails are thickened, elongated and painful. Patient states that it is aggravated by shoe gear. Onset is gradual., Patient is taking prescription blood thinners., Date last seen by Dr. Chris was February 2025., Initials JMR . * ROS: G eneral / Constitutional: Patient denies c hange in appetite, fatigue, chills, fever.? C ardiovascular: Chest pain d enies. N eurologic: Loss of use of extremity d enies. * Medical History: Cancer (type of cancer) Arthritis Skin cancer Thyroid disease Diabetic Varicose veins Blood clots Medical History Verified * Surgical History: knee replacement partial hysterectomy gall bladder shoulder,bilateral Surgical History verified. * Hospitalization/Major Diagno stic Procedure: No Hospitalization Documented. Hospitalization Verified. * Family History: N o Family History documented.. F amily History Verified.. * Social History: Social History Verified. No Social History documented. * Medications: T Angela Ultra - Strip USE STRIP TO CHECK GLUCOSE ONCE DAILY In Vitro Atorvastatin Calcium 20 MG Tablet Oral Ezetimibe 10 MG Tablet Oral metFORMIN HCl ER 500 MG Tablet Extended Release 24 Hour TAKE 2 TABLETS BY MOUTH TWICE DAILY Oral Metoprolol Succinate ER 25 MG Tablet Extended Release 24 Hour TAKE 1 TABLET BY MOUTH TWICE DAILY Oral HYDROcodone-Acetaminophen 5-325 MG Tablet Oral Clopidogrel Bisulfate 75 MG Tablet Oral valACYclovir HCl 1 GM Tablet TAKE 1 TABLET BY MOUTH EVERY 8 HOURS Oral Pantoprazole Sodium 40 MG Tablet Delayed Release Oral Jardiance 25 MG Tablet Oral Medication List reviewed and reconciled with the patientTaking OneTouch Ultra - Strip USE STRIP TO CHECK GLUCOSE ONCE DAILY In Vitro Taking Atorvastatin Calcium 20 MG Tablet Oral Taking Ezetimibe 10 MG Tablet Oral Taking metFORMIN HCl ER 500 MG Tablet Extended Release 24 Hour TAKE 2 TABLETS BY MOUTH TWICE DAILY Oral Taking Metoprolol Succinate ER 25 MG Tablet Extended Release 24 Hour TAKE 1 TABLET BY MOUTH TWICE DAILY Oral Taking HYDROcodone-Acetaminophen 5-325 MG Tablet Oral Taking Clopidogrel Bisulfate 75 MG Tablet Oral Taking valACYclovir HCl 1 GM Tablet TAKE 1 TABLET BY MOUTH EVERY 8 HOURS Oral Taking Pantoprazole Sodium 40 MG Tablet Delayed Release Oral Taking Jardiance 25 MG Tablet Oral Medication List reviewed and reconciled with the patient * Allergies: T apeyesAllergies Verified. Objective: * Vitals: H t: 66 in, Ht-cm: 167.64 cm. * Examination: C onstitutional: Constitutional T he patient is awake, alert, well developed, well groomed and well nourished. , The patient is awake, alert, well developed, well groomed and well nourished. . D ermatologic: Skin findings: S kin is thin, atrophic and lacking pedal hair. , Skin is thin, atrophic and lacking pedal hair. . Nail pathology: N ails 1-5 bilateral are elongated, thick, discolored, and dystrophic with subungual debris. They are painful to palpation , Nails 1-5 bilateral are elongated, thick, discolored, and dystrophic with subungual debris. They are painful to palpation . Ulcer: T here is no evidence of ulceration noted at this time , There is no evidence of ulceration noted at this time . Hyperkeratotic Skin Lesion T here is no evidence of hyperkeratosis , There is no evidence of hyperkeratosis . M usculoskeletal: Muscle Strength M uscle strength is 5/5 in regards to dorsiflexion, plantarflexion, inversion, and eversion in bilateral lower extremities. , Muscle strength is 5/5 in regards to dorsiflexion, plantarflexion, inversion, and eversion in bilateral lower extremities. . Foot Structure T he foot structure is noted to be normal bilaterally , The foot structure is noted to be normal bilaterally . Pain on palpation T here is no pain on palpation , There is no pain on palpation . Gait T here is normal gait noted , There is normal gait noted . N eurologic: Muscle power: 5 /5 bilaterally , 5/5 bilaterally . Gross sensation G ross sensation is intact to light touch. , Gross sensation is intact to light touch. . V ascular: Dorsalis pedis pulse: 0 /4 bilateral , 0/4 bilateral . Posterior tibial pulse: 0 /4 bilaterally , 0/4 bilaterally . Capillary refill: g reater than 3 seconds bilaterally , greater than 3 seconds bilaterally . Temperature gradient: w arm to cool bilaterally , warm to cool bilaterally . Assessment: * Assessment: 1. F ungal infection of nail - B35.1 (Primary) 2 . P ain in right toe(s) - M79.674 3 . P ain in left toe(s) - M79.675 4 . U nspecified atherosclerosis of hoh arteries of extremities, bilateral legs - I70.203 Plan: * Treatment: * Immunizations: Immunization record has been reviewed and updated. * Procedure Codes: 1 1721 DEBRIDE NAIL, 6 OR MORE, Modifiers: Q8 * Preventive Medicine: Screenings: F all risk screening Fall Risk Assessment: N o falls in the past year * Follow Up: 9 weeks. 9 weeks Billing Information: * Procedure Codes: 96920 DEBRIDE NAIL, 6 OR MORE. Modifiers: Q8 * Electronic signature of CHEIKH SCHROEDER DPM on 06/21/2025 at 12:25 PM MOTHER SUPERIOR Sign off status: Pending * Provider: Jaime Schroeder DPM Date: 0 03/03/2025 Generated for Jessica morgan/Mik/Yuri on: 1 08/22/2024 12:25 PM MOTHER SUPERIOR
--- OUTSIDE RECORDS SUMMARY | 2025-05-05 07:20 | XMS_ITS ---
Author Organization [facility] Address [address] [place], [place] [id number] Care Team Providers Care Elevator Mechanic Name Role Phone CHEIKH SCHROEDER Unavailable [phone] VernacYing colbertna Unavailable Unavailable Allergies Allergen (clinical drug ingredient) Drug/Non Drug Allergy documented on EMR Reaction Allergy Type Onset Date Status Tape Unknown Allergy Active REASON FOR VISIT *General care Medications Medication SIG (Take, Route, Frequency, Duration) Notes Start Date End Date Status HYDROcodone-Acetaminophen 5-325 MG Tablet Oral; Duration: 7 Days Ac tive Clopidogrel Bisulfate 75 MG Tablet Oral; Duration: 90 Days Acti ve valACYclovir HCl 1 GM Tablet TAKE 1 TABLET BY MOUTH EVERY 8 HOURS Oral; Duration: 10 Days Active Pantoprazole Sodium 40 MG Tablet Delayed Release Oral; Duration: 90 Days Active Jardiance 25 MG Tablet Oral; Duration: 90 Days Active Atorvastatin Calcium 20 MG Tablet Oral; Duration: 90 Days Acti ve Ezetimibe 10 MG Tablet Oral; Duration: 90 Days Active metFORMIN HCl ER 500 MG Tablet Extended Release 24 Hour TAKE 2 TABLETS BY MOUTH TWICE DAILY Oral; Duration: 90 Days Active Metoprolol Succinate ER 25 MG Tablet Extended Release 24 Hour TAKE 1 TABLET BY MOUTH TWICE DAILY Oral; Duration: 90 Days Active OneTouch Ultra - Strip USE STRIP TO CHEC K GLUCOSE ONCE DAILY In Vitro; Duration: 90 Days Active Vital Signs Height 66 in 05/05/2025 Height-cm 167.64 cm 05/05/2025 Encounters Encounter Location Date Provider Diagnosis [facility] [address] [place], [place] [id number] 05/05/2025 CHEIKH SCHROEDER Fungal infection of nail B35.1 ; Pain in right toe(s) M79.674 ; Pain in left toe(s) M79.675 and 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, bilateral legs I70.203 Assessments Encounter Date Diagnosis (ICD Code) Assessment Notes Treatment Notes Treatment Clinical Notes Section Notes 05/05/2025 Fungal infection of nail (ICD-10 - B35.1) 05/05/2025 Pain in right toe(s) (ICD-10 - M79.674) 05/05/2025 Pain in left toe(s) (ICD-10 - M79.675) 05/05/2025 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, bilateral legs (ICD-10 - I70.203) 05/05/2025 Other Nails 1-5 Bilateral were debrided extensively [...] Provider Name:CHEIKH COOPER, 07/15/2025 02:20:00 PM, [address] [facility] [place], [place], [place], [id number], History and Physical Notes * HPI (History of Present Illness) Category Sub-Category Detail Notes Category Not es HPI General care Patient presents to the office for diabetic foot care. Patient states that their nails are thickened, elongated and painful. Patient states that it is aggravated by shoe gear. Onset is gradual., Patient is taking prescription blood thinners and an aspirin daily., Date last seen by Dr. Chris was 03/2025., Initials mf Examination Category Sub-Category Detail Notes Category Not [...] Notes * MANFRED SYKESDOB:1940 (84 yo F)Acc No.[id number]:05/05/2025 Patient: MANFRED BROWN Provider: Jaime Schroeder DPM :1940 A ge:84 Y S ex:Female Date:05/05/2025 Address:[address] [place], [place] [id number] Subjective: * Chief Complaints: * * General care * HPI: H PI: General care P atient presents to the office for diabetic foot care. Patient states that their nails are thickened, elongated and painful. Patient states that it is aggravated by shoe gear. Onset is gradual., Patient is taking prescription blood thinners and an aspirin daily., Date last seen by Dr. Chris was 03/2025., Initials mf. * ROS: G eneral / Constitutional: Patient [...] No Social History documented. * Medications: T akingOneTouch Ultra - Strip USE STRIP TO CHECK [...] M79.675 4 . U nspecified atherosclerosis of redding arteries of extremities, bilateral legs - I70.203 Plan: * Treatment: * Procedure Codes: 1 1721 DEBRIDE NAIL, 6 OR MORE, Modifiers: Q8 * Preventive Medicine: Screenings: F all risk screening Fall Risk Assessment: N o falls in the past year * Follow Up: 9 weeks. 9 weeks Billing Information: * Procedure Codes: 65366 DEBRIDE NAIL, 6 OR MORE. Modifiers: Q8 * Electronic signature of CHEIKH SCHROEDER DPM on 06/21/2025 at 12:25 PM MOTORCYCLE MECHANIC APPRENTICE Sign off status: Pending * Provider: Jaime Schroeder DPM Date: Generated for Jessica Felix/Yuri on: 08/22/2024 12:25 PM MOTORCYCLE MECHANIC APPRENTICE
--- NOTE | ~2025-06-21 | CT_ITS ---
CT ABDOMEN AND PELVIS WITHOUT CONTRAST Clinical History: R10.9 - Unspecified abdominal pain Comparison: CT abdomen 06/17/2025 Technique: Unenhanced axial images lung bases to symphysis pubis Coronal, sagittal reformats CT images acquired with automatic exposure control for dose reduction DLP: 517 mGy-cm Findings: Without intravenous contrast, sensitivity for detecting visceral parenchymal abnormalities decreased. Lung bases: Clear. Visualized heart and pericardium: Unremarkable. Liver: Enlarged. Steatosis. Micronodular contour suggesting early cirrhosis. Pneumobilia after cholecystectomy. Gallbladder: Removed. Spleen: Unremarkable. Pancreas: Gas within duct. Adrenal glands: Unremarkable. Kidneys: Right kidney- No hydronephrosis. No renal stones. Left kidney- No hydronephrosis. No renal stones. Parapelvic cysts. Distal esophagus/stomach: Small hiatal hernia. Small bowel loops: Normal caliber and wall thickness. Colon: Normal caliber and wall thickness. Normal RLQ appendix. Nodes: No enlarged nodes. Peritoneum: No ascites. No free intraperitoneal air. Urinary bladder: Unremarkable. Uterus: Removed. Adnexa: No masses. Bones: No acute bony abnormality. Soft tissues: Unremarkable. Unopacified abdominal aorta: No aneurysmal dilatation. Atherosclerotic disease. IMPRESSION: 1. No acute findings. Reviewed, dictated and finalized at location R. ORKING SPECIALIST IMPRESSION: 1. No acute findings.
--- OUTSIDE RECORDS SUMMARY | 2025-06-21 12:26 | XMS_ITS | Encounter Summary ---
Author Organization [facility] Healthcare Address [address] [place] [address] Care Team Providers Care Crab Catcher Name Role Phone Carissa Aragon MD Unavailable [phone] Jennifer Chris DO Primary Care Provider [phone] Bailey KwonW Unavailable [phone] Encounter Details Date Type Department Care Team (Late st Contact Info) Description 01/01/2024 Documentation [facility] 4 Med Surg [facility] [place] [address] Madelyn Galarza LPN Social History Tobacco Use Types Packs/Day Years Used Date Smoking Tobacco: Former Cigarettes 2 50 1 954 - 2004 Passive Smoke Exposure: Past Smokeless Tobacco: Never Alcohol Use Standard Drinks/Week Comments No 0 (1 standard drink = 0.6 oz pur e alcohol) [facility] Utilities Answer Date Recorded In the past 12 months has [employer], gas, oil, or water [employer] threatened to shut off services in your [...] How often do you attend chur or restorationist services? More than 4 times per year 12/31/2023 Do you belong to any clubs o r organizations such as anabaptism groups, unions, fraternal or athletic groups, or [...] any time in the past 12 [facility], were you homeless or living in a skilled nursing (including now)? No 12/31/2023 Personal Safety Answer Date Recorded Have you ever been in or are you currently in a harmful physical or emotional relationship or is someone making you feel afraid or unsafe? 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
--- OUTSIDE RECORDS SUMMARY | 2025-06-21 12:26 | XMS_ITS | Patient Health Record ---
Author Organization [facility] Address [address] [place], [place] [id number] Care Team Providers Care Venue Attendant Name Role Phone CHEIKH COBIAN Unavailable [phone] Jennifer Chris Unavailable Unavailable Allergies Allergen (clinical [...] 8 HOURS Oral; Duration: 10 Days Active Atorvastatin Calcium 20 MG Tablet [...] TWICE DAILY Oral; Duration: 90 Days Active Pantoprazole Sodium 40 MG Tablet Delayed Release Oral; Duration: 90 Days Active Jardiance 25 MG Tablet Oral; Duration: 90 Days Active OneTouch Ultra - Strip USE STRIP TO CHEC K GLUCOSE ONCE DAILY In Vitro; Duration: 90 Days Active Immunizations Vaccine Route Administration Date Status Comme nts Influenza, high dose seasonal Unknown 04/05/2023 Admini stered Social History Tobacco Use: Social History Observation Description Date Details (start date - stop date) Never Smoker NA - NA Social History Tobacco Use: Social Info Question Answer Notes Tobacco Control (Standard) Tobacco use: Nonsmoker Additional Details Category Social Info Options Details Drugs/Alcohol: Do you drink alcohol? No Vital Signs Height-cm 167.64 cm 05/05/2025 Weight-kg 86.18 kg 12/16/2024 Height 66 in 05/05/2025 Weight 190 lbs 12/16/2024 BMI 30.66 kg/m2 12/16/2024 Encounters Encounter Location Date Provider Diagnosis [facility] [place] [address] [address] [place] [address] [id number] 03/03/2025 CHEIKH [place] Fungal infection of nail B35.1 ; Pain in right toe(s) M79.674 ; Pain in left toe(s) M79.675 and Unspecified atherosclerosis of [place] arteries of extremities, bilateral legs I70.203 [facility] [address] [place] [address] [id number] 05/05/2025 CHEIKH [place] Fungal infection of nail B35.1 ; Pain in right toe(s) M79.674 ; Pain in left toe(s) M79.675 and Unspecified atherosclerosis of [place] arteries of extremities, bilateral legs I70.203 [facility] [address] [place] [address] [id number] 09/30/2024 CHEIKH [place] Fungal infection of nail B35.1 ; Pain in right toe(s) M79.674 ; Pain in left toe(s) M79.675 ; Unspecified atherosclerosis of [place] arteries of extremities, bilateral legs I70.203 ; Atherosclerosis of [place] arteries of extremities with intermittent claudication, bilateral legs I70.213 and Onychomycosis B35.1 [facility] [address] [place] [address] [id number] 12/16/2024 CHEIKH [place] Fungal infection of nail B35.1 ; Pain in right toe(s) M79.674 ; Pain in left toe(s) M79.675 ; Unspecified atherosclerosis of [place] arteries of extremities, bilateral legs I70.203 and Onychomycosis B35.1 Assessments Encounter Date Diagnosis (ICD Code) Assessment Notes Treatment Notes Treatment Clinical Notes Section Notes 09/30/2024 Fungal infection of nail (ICD-10 - B35.1) 12/16/2024 Pain in right toe(s) (ICD-10 - M79.674) 12/16/2024 Fungal infection of nail (ICD-10 - B35.1) 03/03/2025 Pain in right toe(s) (ICD-10 - M79.674) 03/03/2025 Fungal infection of nail (ICD-10 - B35.1) 05/05/2025 Fungal infection of nail (ICD-10 - B35.1) 05/05/2025 Pain in right toe(s) (ICD-10 - M79.674) 03/03/2025 Pain in left toe(s) (ICD-10 - M79.675) 12/16/2024 Pain in left toe(s) (ICD-10 - M79.675) 09/30/2024 Pain in right toe(s) (ICD-10 - M79.674) 09/30/2024 Pain in left toe(s) (ICD-10 - M79.675) 12/16/2024 Unspecified atherosclerosis of [place] arteries of extremities, bilateral legs (ICD-10 - I70.203) 03/03/2025 Unspecified atherosclerosis of [place] arteries of extremities, bilateral legs (ICD-10 - I70.203) 05/05/2025 Pain in left toe(s) (ICD-10 - M79.675) 05/05/2025 Unspecified atherosclerosis of [place] arteries of extremities, bilateral legs (ICD-10 - I70.203) 12/16/2024 Onychomycosis (ICD-10 - B35.1) Nails 1-5 Bilateral were debrided extensively with nail nippers and emery board, reducing length and girth to pink healthy tissue with any subungual debris and necrotic tissue removed 09/30/2024 Unspecified atherosclerosis of [place] arteries of extremities, bilateral legs (ICD-10 - I70.203) 09/30/2024 Atherosclerosis of [place] arteries of extremities with intermittent claudication, bilateral legs (ICD-10 - I70.213) 09/30/2024 Onychomycosis (ICD-10 - B35.1) Nails 1-5 Bilateral were debrided extensively with nail nippers and emery board, reducing length and girth to pink healthy tissue with any subungual debris and necrotic tissue removed 03/03/2025 Other Nails 1-5 Bilateral were debrided extensively with nail nippers and emery board, reducing length and girth to pink healthy tissue with any subungual debris and necrotic tissue removed Nails 1-5 Bilateral were debrided extensively with nail nippers and emery board, reducing length and girth to pink healthy tissue with any subungual debris and necrotic tissue removed 05/05/2025 Other Nails 1-5 Bilateral were debrided [...] Treatment Next Appt Details Provider Name:CHEIKH COOPER, 07/15/2025 02:20:00 PM, [address] [facility], [place], [place], [id number], Insurance Providers Payer Name Payer Address Payer Phone Subscriber Number Group Number Insured Name Patient Relationship to Insured Coverage Start Date Coverage End Date Medicare Part B [place] [address] [place] [phone] [id number] ONELMANFRED Self - patient is the insured 4 [facility] ([facility] ATTN CLAIMS [address] [place] [address] [id number] MANFRED SYKES Self - patient is the insured Medical (General) History Medical History History ICD Code Cancer (type of cancer) Arthritis skin cancer thyroid disease Diabetic varicose veins Blood clots Surgical History Surgery Date(Month/Year) knee replacement partial hysterectomy gall bladder shoulder,bilateral
--- OUTSIDE RECORDS SUMMARY | 2025-06-21 12:26 | XMS_ITS | Clinical Summary ---
Author Organization [facility] Address [address] [place] [address] Care Team Providers Care Tableau Report Developer Name Role Phone Carissa Aragon MD Unavailable [phone] Jennifer Chris DO Primary Care Provider [phone] Allergies Active Allergy Reactions Criticality Noted Date [...] 1 capsule (150 mcg total) by mouth early childhood education specialist before breakfast 1 Active SITagliptin (JANUVIA) 25 [...] 10:52 AM CDT): LHC from 12/2023 noted ahmw-ip-evqotanf coronary plaquing in LAD, circumflex and right coronary. No angina. Continue atorvastatin and metoprolol XL. She will discuss with her family doctor and vascular surgery regarding continuing on aspirin or Plavix alone given history lower extremity clots. Assessment & Plan (01/22/2024 9:03 PM CDT): LHC from 12/2023 noted pwrb-pl-lgksylmq coronary plaquing in LAD, circumflex and right [...] Description 04/04/2025 3:15 PM CDT Office Visit [facility] Medicine Cardiology [address] [facility] [address] [place] [address] [place] [address] Dwayne Grewal MD Stress-induced cardiomyopathy (Primary Dx); [...] drink = 0.6 oz pur e alcohol) [facility] Utilities Answer Date Recorded In the [...] often do you attend chur ch or hinduism services? More than 4 times per year [...] any time in the past 12 m [facility], were you homeless or living in a intermediate (including now)? No 12/31/2023 Personal Safety Answer Date Recorded Have you ever been in or are you currently in a harmful physical or emotional relationship or is someone making you feel afraid or unsafe? 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 Gender Identity Not on file Sexual Orientation [...] 09/05/2014, 12/05 Medical Devices Implanted Type Area Line Supply Device Identifier Shelf Expiration Date Model / Serial / Lot [employer] Angio-Seal Vip 6fr Closere Device [id number] - [id number] - [id number] Implanted:Qty: 1 on 12/03/2023 by Salvador Mejia MD PhD at [facility] Vascular Closure Device [employer] 07/28/2024 [id number] / [id number] / [id number] [employer] Caitlin Tiwari Perform 36mm Lateralize Reverse Shoulder +3mm [id number] - [id number] - [id number] Implanted:Qty: 1 on 12/03/2023 by Marko Baum MD at [facility] Left: Shoulder [employer] 10/12/2028 [id number] / [id number] / [employer] Tornier Aequalis Perform 15mm Press Fit Long Post Shoulder [id number] - [id number] - [id number] Implanted:Qty: 1 on 12/03/2023 by Marko Baum MD at [facility] Left: Shoulder [employer] 05/20/2028 [id number] / [id number] / [employer] Aequalis Perform Od25 Mm Augment 35 D Half Wedge Baseplate Glenoid [id number] - [id number] - [id number] Implanted:Qty: 1 on 12/03/2023 by Marko Baum MD at [facility] Left: Shoulder [employer] 10/16/2028 [id number] / [id number] / [employer] Aequalis Perform Reversed 5mm 38mm Peripheral Glenoid Screw [id number] - [id number] Implanted:Qty: 1 on 12/03/2023 by Marko Baum MD at [facility] Left: Shoulder [employer] [id number] / / [employer] Aequalis Perform Reversed 5mm 14mm Peripheral Glenoid Screw [id number] - [id number] Implanted:Qty: 1 on 12/03/2023 by Marko Baum MD at [facility] Left: Shoulder [employer] [id number] / / [employer] Aequalis Perform Reversed 5mm 18mm Peripheral Glenoid Screw [id number] - [id number] Implanted:Qty: 1 on 12/03/2023 by Marko Baum MD at [facility] Left: Shoulder [employer] [id number] / / [employer] Aequalis Perform Reversed 5mm 22mm Peripheral Glenoid Screw [id number] - [id number] Implanted:Qty: 1 on 12/03/2023 by Marko Baum MD at [facility] Left: Shoulder [employer] [id number] / / [employer] Insert Humeral 10 Degree Reverse Size 1/2 +0 Perform 36mm Combination [id number] - [id number] - [id number] Implanted:Qty: 1 on 12/03/2023 by Marko Baum MD at [facility] Left: Shoulder [employer] 12/28/2027 [id number] / [id number] / [employer] Tray Stem Humeral Shoulder Reverse Aequalis Perform [id number] - [id number] - [id number] Implanted:Qty: 1 on 12/03/2023 by Marko Baum MD at [facility] Left: Shoulder [employer] 09/11/2027 [id number] / [id number] / Procedures Procedure Name Priority Date/Time [...] metabolic panel (01/22/2024 12:55 PM CDT) Pathologist [facility] Glucose 175(H) 64 - 99 mg/dL [place] [...] last revised on 2018. Testing performed by: [address] [address] Triglycerides 189(H) <=149 mg/dL [facility] Comment: Interpretive [...] last revised on 2018. Testing performed by: [address] [address] HDL 27(L) >=40 mg/dL [facility] Comment: Interpretive [...] last revised on 2018. Testing performed by: [address] [address] LDL, calculated 26 <=129 mg/dL [facility] MA [...] last revised on 2018. Testing performed by: [address] [address] Non-HDL Cholesterol 64 mg/dL [place] [place] Comment: [...] last revised on 2018. Testing performed by: [address] [address] Chol/HDL ratio 3 [facility] [place] Comment:Testing performed by : [address] [address] Blood 01/01/2024 10:1 7 AM CDT 01/01/2024 10:49 AM CDT Francisco Phipps MD LAB BLOOD ORDERABLES Fi nal Result [facility] [place] [address] [facility] Department [place] [address] * (ABNORMAL) Hemoglobin A1c (11/17/2023 11:30 AM [...] BLOOD ORDERABLES Final Result [facility] SILVER[facility] Department [place] [address] from Last 3 Months or Most Recently Relevant to Health Maintenance Insurance MEDICARE [facility] MEDICARE SUPPLEMENT MEDICARE [facility] MEDICARE SUPPLEMENT Advance Directives For more information, please contact: [phone] * Full Code (Latest Code Status on [...] 4:41 PM 04/25/2021 9:09 PM Care Teams Tableau Report Developer Relationship Specialty Start Date End Date GuydaiJennifer colbertDO PCP - General Family Medicine 08/05/22 Carissa Aragon MD Surgeon Surgical Oncology 07/11/22
--- OUTSIDE RECORDS SUMMARY | 2025-06-21 12:26 | XMS_ITS ---
Author Organization [facility] Address [address] [place] [address] Care Team Providers Care Kids Activities Coach Name Role Phone Carissa Aragon MD Unavailable [phone] Jennifer Chris DO Primary Care Provider [phone] Active Problems Problem Noted Date Diagnosed Date [...] 10:52 AM CDT): LHC from 12/2023 noted akej-xo-abkbttey coronary plaquing in LAD, circumflex and right coronary. No angina. Continue atorvastatin and metoprolol XL. She will discuss with her family doctor and vascular surgery regarding continuing on aspirin or Plavix alone given history lower extremity clots. Assessment & Plan (01/22/2024 9:03 PM CDT): LHC from 12/2023 noted daov-km-azguhcjq coronary plaquing in LAD, circumflex and right [...]
== END 2025-06-21 10:26 | disposition home or self-care (01) ==
PROVIDERS: PCP Family Medicine; Visit Provider Family Medicine
DX: R10.9 Unspecified abdominal pain (principal); R11.0 Nausea; R19.7 Diarrhea, unspecified
CPT/HCPCS: 74176